=== PATIENT | male | born 1945 | race Caucasian/White ===

== ENCOUNTER 2022-02-27 09:43 | Inpatient (IN) | payer MEDICARE, MEDICAID, SELFPAY ==
--- NOTE | ~2022-02-27 | CT_ITS ---
EXAMINATION: CT HEAD WITHOUT CONTRAST CLINICAL INFORMATION: Altered mental status. COMPARISON: None TECHNIQUE: Contiguous axial imaging was performed from the skull base to vertex without intravenous administration of contrast. This CT examination was performed using dose optimization techniques as appropriate, variously including the following: *Automated exposure control *Adjustment of mA and/or kV according to patient size (this includes techniques or standardized protocols for targeted exams where dose is matched to indication/reason for exam; i.e. extremities or head) *Use of iterative reconstruction technique DLP: 727 mGy-cm FINDINGS: No intracranial hemorrhage, large infarction, or mass lesion is seen. Age-appropriate cortical atrophy and mild chronic periventricular white matter ischemic changes. No extra-axial collection is appreciated. The ventricles are normal in size and configuration without evidence of hydrocephalus. Mild mucosal thickening involving bilateral ethmoid air cells and the frontal infundibula bilaterally. The visualized paranasal sinuses and mastoid air cells otherwise appear clear. CT/CT head/brain wo IV con IMPRESSION: No acute intracranial finding.
--- NOTE | ~2022-02-27 | CT_ITS ---
EXAMINATION: CT ABDOMEN AND PELVIS WITH CONTRAST CLINICAL INFORMATION: Elevated bilirubin. COMPARISON: None TECHNIQUE: Multidetector volumetric images were obtained from the superior aspect of the liver through the pubic symphysis following administration 85 mL of Omnipaque 350 intravenous contrast. Sagittal and coronal reformatted images were obtained on the technologist's workstation. Oral contrast: No This CT examination was performed using dose optimization techniques as appropriate, variously including the following: *Automated exposure control *Adjustment of mA and/or kV according to patient size (this includes techniques or standardized protocols for targeted exams where dose is matched to indication/reason for exam; i.e. extremities or head) *Use of iterative reconstruction technique DLP: 602 mGy-cm FINDINGS: Limited by motion. LUNG BASES: The lung bases appear clear, with no evidence of inflammation or nodules. Heart upper normal in size to mildly enlarged. LIVER, GALLBLADDER, AND BILIARY TREE: The liver appears unremarkable in size, shape, and attenuation. No focal hepatic lesion or biliary ductal dilatation is appreciated. Status post cholecystectomy. PANCREAS: Unremarkable SPLEEN: Unremarkable ADRENAL GLANDS: Unremarkable KIDNEYS AND URETERS: Approximately 1 cm benign bilateral simple renal cysts. The kidneys otherwise appear unremarkable in size, shape, and attenuation. No hydronephrosis, hydroureter, or calculi seen. BLADDER: Unremarkable GASTROINTESTINAL TRACT: Small hiatus hernia. The small bowel appears unremarkable. Scattered colonic diverticula without evidence of diverticulitis. Normal-appearing distal ileum. No evidence of appendicitis. ABDOMINAL WALL: No significant hernia is appreciated. LYMPH NODES: No evidence of adenopathy by size criteria. VASCULAR: Unremarkable PELVIC VISCERA: Mildly enlarged prostate. OSSEOUS STRUCTURES: Unremarkable CT/CT abdomen pelvis w IV con IMPRESSION: Limited by motion. No acute finding.
--- NOTE | ~2022-02-27 | XR_ITS ---
EXAMINATION: XR CHEST CLINICAL INFORMATION: Altered mental status. Fever. COMPARISON: None TECHNIQUE: 2 views of the chest were obtained. FINDINGS: No significant abnormality is noted involving the heart, lungs, mediastinum, bony thorax or soft tissues. XR/XR chest 2V IMPRESSION: Unremarkable examination.
[2022-02-27 09:47] VITALS: BP 107/68; PULSE 55; RESP 18; TEMP 36.6; O2SAT 96; BMI 29.5
--- NOTE | 2022-02-27 10:46 | ECG_ITS ---
Test Reason : ams Blood Pressure : / mmHG Vent. Rate : 062 BPM Atrial Rate : 062 BPM P-R Int : 208 ms QRS Dur : 094 ms QT Int : 420 ms P-R-T Axes : 019 -19 031 degrees QTc Int : 426 ms Sinus rhythm with marked sinus arrhythmia Minimal voltage criteria for LVH, may be normal variant ( R in aVL ) Borderline ECG No previous ECGs available Referred By: Generic ED Physician Electronically Signed By:WENDY BIARRA
--- NOTE | 2022-02-27 11:08 | ED_ITS ---
HPI - General Adult General Chief complaint: General Medical Stated complaint: delirious, not feeling well Time Seen by Provider: 02/27/22 11:08 Source: patient and RN notes reviewed Mode of arrival: ambulatory (friend brought him in ) Limitations: altered mental status History of Present Illness HPI narrative: This is a 76-year-old male, unknown medical history presenting to the emergency department with altered mental status, hallucinations, bizarre behavior, confusion worsening over the past 4 days. According to nursing note some point patient reported he had a fever 4 days ago. When I asked patient why he is here he tells me he was sitting in wet clothes 3 weeks ago however unsure why he is here right now. He denies any falls. Patient unable to answer an accurate review of systems. When I ask him if anything hurts he says no. Patient seems confused, drailing and going on tangents. Related Data Allergies Allergy/AdvReac Type Severity Reaction Status Date / Time Unable to Assess Allergy Unverified 02/27/22 11:09 Review of Systems Review of Systems: Yes Unobtainable due to mental status PMFSH Past Medical History Attestation statement: The following information was validated with the patient. Source: old records reviewed and nursing notes reviewed Social History Social History Alcohol intake: former Patient Tobacco Use Status: Former Tobacco user Use of substances other than those prescribed or required for medical reasons: No Advance Directives: No Advance Directives Information Provided: Yes Physical Exam ED Vital Signs: Vital Signs - 24 hr 02/27/22 09:47 02/27/22 11:33 02/27/22 14:00 Temperature 98 F 97.7 F 98.8 F Pulse Rate 55 61 72 Respiratory Rate 18 20 20 Blood Pressure 107/68 129/74 138/66 Pulse Oximetry 96 96 98 Oxygen Delivery Method Room Air Room Air Room Air 02/27/22 15:50 02/27/22 19:45 Temperature Pulse Rate 63 63 Respiratory Rate 13 13 Blood Pressure 148/81 H 148/82 H Pulse Oximetry 95 94 Oxygen Delivery Method Room Air Room Air BMI result Body Mass Index 29.5 vss Appearance: Alert.? Oriented to person place not time or situation.? No acute distress.?Slow speech patient derailing and going on tangents during my exam. Head: Normocephalic, atraumatic, no step-offs or deformities Eyes: Pupils equal, round and reactive to light.? ENT: Pharynx normal.? Neck: Normal inspection.? Neck supple.? Negative Kernig and Brudzinski. CVS: Normal heart rate and rhythm.? Pulses normal.? Respiratory: No respiratory distress.? Breath sounds normal.? Abdomen: Soft and nontender.? Skin: Skin warm and dry.? Normal skin color.? Normal skin turgor.? Extremities: No lower extremity edema.? No calf ttp. Global weakness. Neuro: Oriented to person, place not time or situation.? No motor deficit.? No sensory deficit. Following comands. Course Reevaluation(s) Reevaluation #1: Patient noted to have slight leukocytosis, COVID negative, chest x-ray unremarkable. Head CT, urine, chemistry pending. Time: 12:01 Reevaluation #2: chemistry with no acute electrolyte abnormalities requiring intervention. Patient's total bilirubin elevated as patient is altered a CT of the abdomen and pelvis will be obtained. head CT with no acute findings. Urine clean. Time: 12:55 Reevaluation #3: Patient complaining of slight diffuse headache feels like typical. Ethanol negative, urine toxicology negative. CT of the abdomen and pelvis with no acute findings. CT of the head with no acute findings. Chest x-ray unremarkable. This time unable to identify source for patient's altered mental status lumbar puncture will be obtained. Patient gave me and nurse verbal consent went over risks vs benifits. Patient agrees. Time: 18:00 Additional Reevaluation(s): 2001 Patient did not report a post spinal tap headache. Laboratory studies concerning for aseptic meningitis will cover with ceftriaxone, vanco and acyclovir for prophylaxis. Plan at this time is to admit patient to the hospitalist team for further evaluation and treatment. 2010 Discuss this case with the hospitalist team who agrees to hospital admission. Suggested adding ampicillin to cover for listeria. At this time patient will be admitted to the hospitalist team. Medical Decision Making [facility] Narrative Medical decision making narrative: 1110 76-year-old male presents with altered mental status, confusion, reported fevers x4 days. Patient poor historian, unable to give me a good history and or review of systems. Physical examination patient alert to person, place however not time or situation. Patient slow to answer questions and is going on tangents while speaking and Dreeling from conversation. Patient has a regular rate and rhythm, lungs are clear, abdomen soft nontender nondistended. Global weakness is appreciated however there are no focal neuro deficits on exam. Patient was brought into the room by wheelchair and was brought into the emergency department by a friend. Patient appears comfortable and in no acute distress. Patient appears to be in no signs of acute distress. Vital signs within normal limits, no fever. Likely UTI or electrolyte abnormalities. No known trauma however will do a head CT to rule out intracranial hemorrhage or intracranial abnormalities. Will rule out infection, EKG abnormalities. Will also rule out ACS. As patient is altered will obtain urine via straight catheter. Some concern for encephalitis and meningitis. Medical Records Medical records reviewed: Yes I reviewed the patient's medical records. Lab Data Lab results reviewed: Yes I reviewed the patient's lab results. Result diagrams: 02/27/22 11:30 02/27/22 11:30 Labs: Lab Results 02/27/22 02/27/22 02/27/22 Range/Units 11:30 11:30 11:30 WBC 14.1 H (4.8-10.8) X10*3/uL RBC 4.72 (4.60-5.80) X10*6/uL Hgb 14.7 (14.0-18.0) g/dl Hct 40.9 L (42.0-52.0) % MCV 86.7 (80.0-98.0) fL MCH 31.1 (27.0-33.0) pg MCHC 35.9 (31.0-36.0) g/dl RDW 12.2 (11.0-16.0) % Plt Count 218 (160-400) X10*3/uL MPV 9.6 (9.4-12.4) fL Immature Gran % (Auto) 0.4 (0.0-0.4) % Neut % (Auto) 72.1 (45-73) % Lymph % (Auto) 16.2 L (20-40) % [place] % (Auto) 10.4 (2-11) % Eos % (Auto) 0.6 (0-4) % Baso % (Auto) 0.3 (0-2) % Lymph # (Auto) 2.3 (1.2-4.9) X10*3/uL [place] # (Auto) 1.5 H (0.1-1.2) X10*3/uL Eos # (Auto) 0.1 (0.0-0.4) X10*3/uL Baso # (Auto) 0.0 (0.0-0.2) X10*3/uL Abs Immat Gran (auto) 0.05 H (0.00-0.03) X10*3/uL Absolute Neuts (auto) 10.2 H (2.0-8.3) x10*3/uL Absolute Nucleated RBC 0.000 (0.0-0.012) X10*3/uL Nucleated RBC % (auto) 0.0 (0.0-0.2) /100WBC Sodium 134 L (135-145) mmol/L Potassium 3.7 (3.3-5.1) mmol/L Chloride 95 L (96-108) mmol/L Carbon Dioxide 28 (22-29) mmol/L Anion Gap 15 (12-20) BUN 15 (9-16) mg/dL Creatinine 0.88 (0.5-1.4) mg/dL Estim Creat Clear Calc 80.7 Estimated GFR > 60 Random Glucose 101 (60-115) mg/dL Lactic Acid (0.5-2.0) mmol/L Calcium 9.4 (8.4-10.2) mg/dL Total Bilirubin 3.4 H (0.0-1.0) mg/dL Direct Bilirubin 0.6 H (0.0-0.5) mg/dL AST 21 (5-37) U/L ALT 17 (0-40) U/L Alkaline Phosphatase 72 (39-117) U/L Ammonia (13-55) umol/L Total Creatine Kinase 183 H (38-174) U/L Troponin I High Sens 6.7 (<3.5-35.0) ng/L Total Protein 7.6 (6.5-8.0) g/dL Albumin 4.1 (3.5-5.0) g/dL Lipase 86 H (8-78) U/L TSH 2.19 (0.32-4.0) uIU/mL Urine Color Urine Appearance Urine pH (5.0-9.0) Ur Specific [place] (1.005-1.025) Urine Protein (Neg-Trace) mg/dL Urine Glucose (UA) (Negative) mg/dL Urine Ketones (Negative) mg/dL Urine Blood (Negative) Urine Nitrite (Negative) Ur Leukocyte Esterase (Negative) Urine RBC (0-2) /HPF Urine WBC (0-5) /HPF Ur Squamous Epith Cells (0-2) /HPF Urine Bacteria (None Seen) Hyaline Casts (0-2) /LPF CSF Tube Number CSF Volume ML CSF Appearance CSF Color CSF WBC MM*3 CSF RBC MM*3 CSF Neutrophils % CSF Lymphocytes % CSF Monocytes % % CSF Other Cells % % CSF Appearance (b) CSF Glucose mg/dL CSF Total Protein (15-45) mg/dL CSF C.neoform/gat PCR (Not Detect.) CSF CMV DNA (PCR) (Not Detect.) CSF Enterovirus (PCR) (Not Detect.) CSF E. coli K1 (PCR) (Not Detect.) CSF H. influenzae (PCR) (Not Detect.) CSF HSV I (PCR) (Not Detect.) CSF HSV II (PCR) (Not Detect.) CSF HHV 6 (PCR) (Not Detect.) CSF L.monocytogenes PCR (Not Detect.) CSF N. meningitidis PCR (Not Detect.) CSF Parechovirus (PCR) (Not Detect.) CSF S. agalactiae (PCR) (Not Detect.) CSF S. pneumoniae (PCR) (Not Detect.) CSF VZV (PCR) (Not Detect.) Urine Opiates Screen (Not Detect) Urine Fentanyl Screen (Not Detect) Ur Barbiturates Screen (Not Detect) Ur Phencyclidine Scrn (Not Detect) Ur Amphetamines Screen (Not Detect) U Benzodiazepines Scrn (Not Detect) Urine Cocaine Screen (Not Detect) U Marijuana (THC) Screen (Not Detect) Ethyl Alcohol < 10 mg/dL COVID-19 ([facility]) (Negative) COVID-19 Clin Com 02/27/22 02/27/22 02/27/22 Range/Units 11:30 11:30 11:31 WBC (4.8-10.8) X10*3/uL RBC (4.60-5.80) X10*6/uL Hgb (14.0-18.0) g/dl Hct (42.0-52.0) % MCV (80.0-98.0) fL MCH (27.0-33.0) pg MCHC (31.0-36.0) g/dl RDW (11.0-16.0) % Plt Count (160-400) X10*3/uL MPV (9.4-12.4) fL Immature Gran % (Auto) (0.0-0.4) % Neut % (Auto) (45-73) % Lymph % (Auto) (20-40) % [place] % (Auto) (2-11) % Eos % (Auto) (0-4) % Baso % (Auto) (0-2) % Lymph # (Auto) (1.2-4.9) X10*3/uL [place] # (Auto) (0.1-1.2) X10*3/uL Eos # (Auto) (0.0-0.4) X10*3/uL Baso # (Auto) (0.0-0.2) X10*3/uL Abs Immat Gran (auto) (0.00-0.03) X10*3/uL Absolute Neuts (auto) (2.0-8.3) x10*3/uL Absolute Nucleated RBC (0.0-0.012) X10*3/uL Nucleated RBC % (auto) (0.0-0.2) /100WBC Sodium (135-145) mmol/L Potassium (3.3-5.1) mmol/L Chloride (96-108) mmol/L Carbon Dioxide (22-29) mmol/L Anion Gap (12-20) BUN (9-16) mg/dL Creatinine (0.5-1.4) mg/dL Estim Creat Clear Calc Estimated GFR Random Glucose (60-115) mg/dL Lactic Acid 0.9 (0.5-2.0) mmol/L Calcium (8.4-10.2) mg/dL Total Bilirubin (0.0-1.0) mg/dL Direct Bilirubin (0.0-0.5) mg/dL AST (5-37) U/L ALT (0-40) U/L Alkaline Phosphatase (39-117) U/L Ammonia (13-55) umol/L Total Creatine Kinase (38-174) U/L Troponin I High Sens (<3.5-35.0) ng/L Total Protein (6.5-8.0) g/dL Albumin (3.5-5.0) g/dL Lipase (8-78) U/L TSH (0.32-4.0) uIU/mL Urine Color Urine Appearance Urine pH (5.0-9.0) Ur Specific [place] (1.005-1.025) Urine Protein (Neg-Trace) mg/dL Urine Glucose (UA) (Negative) mg/dL Urine Ketones (Negative) mg/dL Urine Blood (Negative) Urine Nitrite (Negative) Ur Leukocyte Esterase (Negative) Urine RBC (0-2) /HPF Urine WBC (0-5) /HPF Ur Squamous Epith Cells (0-2) /HPF Urine Bacteria (None Seen) Hyaline Casts (0-2) /LPF CSF Tube Number CSF Volume ML CSF Appearance CSF Color CSF WBC MM*3 CSF RBC MM*3 CSF Neutrophils % CSF Lymphocytes % CSF Monocytes % % CSF Other Cells % % CSF Appearance (b) CSF Glucose mg/dL CSF Total Protein (15-45) mg/dL CSF C.neoform/gat PCR (Not Detect.) CSF CMV DNA (PCR) (Not Detect.) CSF Enterovirus (PCR) (Not Detect.) CSF E. coli K1 (PCR) (Not Detect.) CSF H. influenzae (PCR) (Not Detect.) CSF HSV I (PCR) (Not Detect.) CSF HSV II (PCR) (Not Detect.) CSF HHV 6 (PCR) (Not Detect.) CSF L.monocytogenes PCR (Not Detect.) CSF N. meningitidis PCR (Not Detect.) CSF Parechovirus (PCR) (Not Detect.) CSF S. agalactiae (PCR) (Not Detect.) CSF S. pneumoniae (PCR) (Not Detect.) CSF VZV (PCR) (Not Detect.) Urine Opiates Screen Not Detected (Not Detect) Urine Fentanyl Screen Not Detected (Not Detect) Ur Barbiturates Screen Not Detected (Not Detect) Ur Phencyclidine Scrn Not Detected (Not Detect) Ur Amphetamines Screen Not Detected (Not Detect) U Benzodiazepines Scrn Not Detected (Not Detect) Urine Cocaine Screen Not Detected (Not Detect) U Marijuana (THC) Screen Not Detected (Not Detect) Ethyl Alcohol mg/dL COVID-19 ([facility]) Negative (Negative) COVID-19 Clin Com See Note 02/27/22 02/27/22 02/27/22 Range/Units 12:09 16:32 18:57 WBC (4.8-10.8) X10*3/uL RBC (4.60-5.80) X10*6/uL Hgb (14.0-18.0) g/dl Hct (42.0-52.0) % MCV (80.0-98.0) fL MCH (27.0-33.0) pg MCHC (31.0-36.0) g/dl RDW (11.0-16.0) % Plt Count (160-400) X10*3/uL MPV (9.4-12.4) fL Immature Gran % (Auto) (0.0-0.4) % Neut % (Auto) (45-73) % Lymph % (Auto) (20-40) % [place] % (Auto) (2-11) % Eos % (Auto) (0-4) % Baso % (Auto) (0-2) % Lymph # (Auto) (1.2-4.9) X10*3/uL [place] # (Auto) (0.1-1.2) X10*3/uL Eos # (Auto) (0.0-0.4) X10*3/uL Baso # (Auto) (0.0-0.2) X10*3/uL Abs Immat Gran (auto) (0.00-0.03) X10*3/uL Absolute Neuts (auto) (2.0-8.3) x10*3/uL Absolute Nucleated RBC (0.0-0.012) X10*3/uL Nucleated RBC % (auto) (0.0-0.2) /100WBC Sodium (135-145) mmol/L Potassium (3.3-5.1) mmol/L Chloride (96-108) mmol/L Carbon Dioxide (22-29) mmol/L Anion Gap (12-20) BUN (9-16) mg/dL Creatinine (0.5-1.4) mg/dL Estim Creat Clear Calc Estimated GFR Random Glucose (60-115) mg/dL Lactic Acid (0.5-2.0) mmol/L Calcium (8.4-10.2) mg/dL Total Bilirubin (0.0-1.0) mg/dL Direct Bilirubin (0.0-0.5) mg/dL AST (5-37) U/L ALT (0-40) U/L Alkaline Phosphatase (39-117) U/L Ammonia 25 (13-55) umol/L Total Creatine Kinase (38-174) U/L Troponin I High Sens (<3.5-35.0) ng/L Total Protein (6.5-8.0) g/dL Albumin (3.5-5.0) g/dL Lipase (8-78) U/L TSH (0.32-4.0) uIU/mL Urine Color Dark Yellow Urine Appearance Clear Urine pH 6.0 (5.0-9.0) Ur Specific [place] 1.025 (1.005-1.025) Urine Protein 30 (1+) H (Neg-Trace) mg/dL Urine Glucose (UA) Negative (Negative) mg/dL Urine Ketones Negative (Negative) mg/dL Urine Blood Trace H (Negative) Urine Nitrite Negative (Negative) Ur Leukocyte Esterase Negative (Negative) Urine RBC 3-5 H (0-2) /HPF Urine WBC 0-5 (0-5) /HPF Ur Squamous Epith Cells 3-5 (0-2) /HPF Urine Bacteria None Seen (None Seen) Hyaline Casts 0-2 (0-2) /LPF CSF Tube Number 3 CSF Volume ML CSF Appearance CSF Color CSF WBC MM*3 CSF RBC MM*3 CSF Neutrophils % CSF Lymphocytes % CSF Monocytes % % CSF Other Cells % % CSF Appearance (b) Clear, Colorless CSF Glucose 59 mg/dL CSF Total Protein 96.4 H (15-45) mg/dL CSF C.neoform/gat PCR (Not Detect.) CSF CMV DNA (PCR) (Not Detect.) CSF Enterovirus (PCR) (Not Detect.) CSF E. coli K1 (PCR) (Not Detect.) CSF H. influenzae (PCR) (Not Detect.) CSF HSV I (PCR) (Not Detect.) CSF HSV II (PCR) (Not Detect.) CSF HHV 6 (PCR) (Not Detect.) CSF L.monocytogenes PCR (Not Detect.) CSF N. meningitidis PCR (Not Detect.) CSF Parechovirus (PCR) (Not Detect.) CSF S. agalactiae (PCR) (Not Detect.) CSF S. pneumoniae (PCR) (Not Detect.) CSF VZV (PCR) (Not Detect.) Urine Opiates Screen (Not Detect) Urine Fentanyl Screen (Not Detect) Ur Barbiturates Screen (Not Detect) Ur Phencyclidine Scrn (Not Detect) Ur Amphetamines Screen (Not Detect) U Benzodiazepines Scrn (Not Detect) Urine Cocaine Screen (Not Detect) U Marijuana (THC) Screen (Not Detect) Ethyl Alcohol mg/dL COVID-19 ([facility]) (Negative) COVID-19 Clin Com 02/27/22 02/27/22 Range/Units 18:57 18:57 WBC (4.8-10.8) X10*3/uL RBC (4.60-5.80) X10*6/uL Hgb (14.0-18.0) g/dl Hct (42.0-52.0) % MCV (80.0-98.0) fL MCH (27.0-33.0) pg MCHC (31.0-36.0) g/dl RDW (11.0-16.0) % Plt Count (160-400) X10*3/uL MPV (9.4-12.4) fL Immature Gran % (Auto) (0.0-0.4) % Neut % (Auto) (45-73) % Lymph % (Auto) (20-40) % [place] % (Auto) (2-11) % Eos % (Auto) (0-4) % Baso % (Auto) (0-2) % Lymph # (Auto) (1.2-4.9) X10*3/uL [place] # (Auto) (0.1-1.2) X10*3/uL Eos # (Auto) (0.0-0.4) X10*3/uL Baso # (Auto) (0.0-0.2) X10*3/uL Abs Immat Gran (auto) (0.00-0.03) X10*3/uL Absolute Neuts (auto) (2.0-8.3) x10*3/uL Absolute Nucleated RBC (0.0-0.012) X10*3/uL Nucleated RBC % (auto) (0.0-0.2) /100WBC Sodium (135-145) mmol/L Potassium (3.3-5.1) mmol/L Chloride (96-108) mmol/L Carbon Dioxide (22-29) mmol/L Anion Gap (12-20) BUN (9-16) mg/dL Creatinine (0.5-1.4) mg/dL Estim Creat Clear Calc Estimated GFR Random Glucose (60-115) mg/dL Lactic Acid (0.5-2.0) mmol/L Calcium (8.4-10.2) mg/dL Total Bilirubin (0.0-1.0) mg/dL Direct Bilirubin (0.0-0.5) mg/dL AST (5-37) U/L ALT (0-40) U/L Alkaline Phosphatase (39-117) U/L Ammonia (13-55) umol/L Total Creatine Kinase (38-174) U/L Troponin I High Sens (<3.5-35.0) ng/L Total Protein (6.5-8.0) g/dL Albumin (3.5-5.0) g/dL Lipase (8-78) U/L TSH (0.32-4.0) uIU/mL Urine Color Urine Appearance Urine pH (5.0-9.0) Ur Specific [place] (1.005-1.025) Urine Protein (Neg-Trace) mg/dL Urine Glucose (UA) (Negative) mg/dL Urine Ketones (Negative) mg/dL Urine Blood (Negative) Urine Nitrite (Negative) Ur Leukocyte Esterase (Negative) Urine RBC (0-2) /HPF Urine WBC (0-5) /HPF Ur Squamous Epith Cells (0-2) /HPF Urine Bacteria (None Seen) Hyaline Casts (0-2) /LPF CSF Tube Number 4 CSF Volume 1.0 ML CSF Appearance CLEAR CSF Color COLORLESS CSF WBC 73 H* MM*3 CSF RBC 0 MM*3 CSF Neutrophils 22 % CSF Lymphocytes 64 % CSF Monocytes % 13 % CSF Other Cells % 1 % CSF Appearance (b) CSF Glucose mg/dL CSF Total Protein (15-45) mg/dL CSF C.neoform/gat PCR Not Detected (Not Detect.) CSF CMV DNA (PCR) Not Detected (Not Detect.) CSF Enterovirus (PCR) Not Detected (Not Detect.) CSF E. coli K1 (PCR) Not Detected (Not Detect.) CSF H. influenzae (PCR) Not Detected (Not Detect.) CSF HSV I (PCR) Not Detected (Not Detect.) CSF HSV II (PCR) Not Detected (Not Detect.) CSF HHV 6 (PCR) Not Detected (Not Detect.) CSF L.monocytogenes PCR Not Detected (Not Detect.) CSF N. meningitidis PCR Not Detected (Not Detect.) CSF Parechovirus (PCR) Not Detected (Not Detect.) CSF S. agalactiae (PCR) Not Detected (Not Detect.) CSF S. pneumoniae (PCR) Not Detected (Not Detect.) CSF VZV (PCR) Not Detected (Not Detect.) Urine Opiates Screen (Not Detect) Urine Fentanyl Screen (Not Detect) Ur Barbiturates Screen (Not Detect) Ur Phencyclidine Scrn (Not Detect) Ur Amphetamines Screen (Not Detect) U Benzodiazepines Scrn (Not Detect) Urine Cocaine Screen (Not Detect) U Marijuana (THC) Screen (Not Detect) Ethyl Alcohol mg/dL COVID-19 ([facility]) (Negative) COVID-19 Clin Com Critical Care Time Critical Care Time Critical Care Time: Yes Total Critical Care Time: 60 Attestation: I attest to this time spent taking care of the patient, obtaining history, physical, reviewing labs, imaging, speaking to my attending, speaking to specialist. Discharge Plan Discharge Clinical Impression: Aseptic meningitis, Altered mental status Patient Disposition: Admitted As Inpatient
[2022-02-27 11:33] VITALS: BP 129/74; PULSE 61; RESP 20; TEMP 36.5; O2SAT 96
[2022-02-27 11:38] LABS: Basophils Percent Auto 0.3 % (0-2); Eosinophils Absolute Auto 0.1 X10*3/uL (0.0-0.4); Eosinophils Percent Auto 0.6 % (0-4); Hematocrit 40.9 % (42.0-52.0); Hemoglobin 14.7 g/dl (14.0-18.0); Imm Gran Abs Auto 0.05 X10*3/uL (0.00-0.03); Imm Gran Pct Auto 0.4 % (0.0-0.4); Lymphocytes Absolute Auto 2.3 X10*3/uL (1.2-4.9); Lymphocytes Percent Auto 16.2 % (20-40); MANUAL DIFF FLAG NO; Mean Corpuscular HGB Conc 35.9 g/dl (31.0-36.0); Mean Corpuscular Hemoglobin 31.1 pg (27.0-33.0); Mean Corpuscular Volume 86.7 fL (80.0-98.0); Mean Platelet Volume 9.6 fL (9.4-12.4); Monocytes Absolute Auto 1.5 X10*3/uL (0.1-1.2); Monocytes Percent Auto 10.4 % (2-11); Neutrophils Absolute Auto 10.2 x10*3/uL (2.0-8.3); Neutrophils Percent Auto 72.1 % (45-73); Platelet Count 218 X10*3/uL (160-400); Red Blood Count 4.72 X10*6/uL (4.60-5.80); Red Cell Distribution Width 12.2 % (11.0-16.0); White Blood Count 14.1 X10*3/uL (4.8-10.8)
--- NOTE | 2022-02-27 11:47 | PC.NURSE ---
Patient came in complaining about fever. Patient is a/o x 4, IV 20 G was inserted and labs was collected by provider order, pt was paced on the telemetry and it shows sinus bradychardia with one PVC. Pt VS are stable. Pt was observed and he self-care deficit. Pt clothing looks soil.
[2022-02-27 11:48] LABS: Lactic Acid 0.9 mmol/L (0.5-2.0)
[2022-02-27 11:55] LABS: COVID-19 Test Negative (Negative)
[2022-02-27 12:01] LABS: Troponin-I High Sensitivity 6.7 ng/L (<3.5-35.0)
[2022-02-27 12:03] LABS: Alanine Aminotransferase 17 U/L (0-40); Albumin Level 4.1 g/dL (3.5-5.0); Alkaline Phosphatase 72 U/L (39-117); Anion Gap 15 (12-20); Aspartate Amino Transferase 21 U/L (5-37); Bilirubin Direct 0.6 mg/dL (0.0-0.5); Bilirubin Total 3.4 mg/dL (0.0-1.0); Blood Urea Nitrogen 15 mg/dL (9-16); Calcium 9.4 mg/dL (8.4-10.2); Carbon Dioxide 28 mmol/L (22-29); Chloride 95 mmol/L (96-108); Creatinine Clr Calc Pharmacy 80.7; Estimated Glomerular Filt Rate > 60; Glucose Random 101 mg/dL (60-115); Lipase 86 U/L (8-78); Potassium 3.7 mmol/L (3.3-5.1); Sodium 134 mmol/L (135-145); Total Protein 7.6 g/dL (6.5-8.0)
--- NOTE | 2022-02-27 12:06 | PC.NURSE ---
Pt was straight cath, and urine culture was collected.
[2022-02-27 12:30] LABS: Appearance Urine Clear; Color Urine Dark Yellow; Glucose Urine UA Negative (Negative); Leukocyte Esterase Urine Negative (Negative); Nitrite Urine Negative (Negative); Specific Gravity - Urine 1.025 (1.005-1.025); Urine Blood Trace (Negative); Urine Ketones Negative (Negative); Urine Protein 30 (1+) mg/dL (Neg-Trace)
[2022-02-27 12:42] LABS: Bacteria Urine None Seen (None Seen); Hyaline Casts Urine 0-2 /LPF (0-2); WBC Urine 0-5 /HPF (0-5)
[2022-02-27] MEDS: iohexoL 350 MG/ML 100 ML INFUS..BTL 85 ML IV (12:50)
[2022-02-27 14:00] VITALS: BP 138/66; PULSE 72; RESP 20; TEMP 37.1; O2SAT 98
[2022-02-27 15:50] VITALS: BP 148/81; PULSE 63; RESP 13; O2SAT 95
--- NOTE | 2022-02-27 16:00 | PC.NURSE ---
Pt VS are stable, Pt is a/o x3, pt was assistance with the urinal.
[2022-02-27 16:46] LABS: Ammonia 25 umol/L (13-55)
[2022-02-27 16:56] LABS: TSH reflex Free T4 2.19 uIU/mL (0.32-4.0)
--- NOTE | 2022-02-27 17:00 | PC.NURSE ---
Pt had a lumbar puncture procedure, provider was assisted with the equipment and pt with position and verbal reassurance. Pt tolerated the procedure wel, pt is resting supine position as provided requested.
[2022-02-27 17:20] LABS: Ethanol < 10 mg/dL
[2022-02-27 17:26] LABS: Amphetamine Screen Urine Not Detected (Not Detect); Barbiturates, Urine Not Detected (Not Detect); Benzodiazepines Screen Urine Not Detected (Not Detect); Cannabinoid Screen Urine Not Detected (Not Detect); Cocaine Screen Urine Not Detected (Not Detect); Fentanyl, urine Not Detected (Not Detect); Opiate Screen Urine Not Detected (Not Detect); Phencyclidine Screen Urine Not Detected (Not Detect)
[2022-02-27 19:34] LABS: Glucose CSF 59 mg/dL; Total Protein CSF 96.4 mg/dL (15-45)
[2022-02-27 19:38] LABS: CSF Appearance Clear, Colorless; CSF Tube # 3
[2022-02-27 19:41] LABS: Appearance CSF CLEAR; CSF Tube # 4; Color CSF COLORLESS
[2022-02-27 19:45] VITALS: BP 148/82; PULSE 63; RESP 13; O2SAT 94
[2022-02-27 19:56] LABS: CSF Monos 13 %; CSF Other Cells % 1 %; Lymphocytes CSF 64 %; Neutrophils CSF 22 %; Red Blood Cell CSF 0 MM*3; White Blood Cell CSF 73 MM*3
[2022-02-27] MEDS: cefTRIAXone sodium 2 GM in 0.9 % Sodium Chloride 50 ML IV (20:24)
--- NOTE | 2022-02-27 20:30 | PC.NURSE ---
Pt VS are stable, and pt abx were administer as order.
[2022-02-27] MEDS: 0.9 % Sodium Chloride 500 ML 10 ML IVCONT (21:22)
[2022-02-27] MEDS: SODIUM CHLORIDE 0.9% IV (21:22)
[2022-02-27] MEDS: ACYCLOVIR SODIUM IV (21:22)
--- NOTE | 2022-02-27 21:25 | PM.IMHP ---
History of Present Illness Date of Service: 02/27/22 Attending physician on admission: Musa Rivera Chief Complaint: AMS, aseptic meningitis 76 year old male without known medical history brought to the ED today by a friend who did not come into the department for what patient reports as 3 weeks of fatigue, subjective fevers, shaking chills that has worsened over the last few days now with 1-2 episodes of watery diarrhea daily, polyarthalgia, and decreased oral intake. Reports symptoms started after he worked outside in the rain and slept in wet clothes. He states he came from home where he lives with two dogs and then later states that his home is actually a van. Upon questioning he states he has had headaches and sore throat over the last 3 weeks but did not volunteer this information. Has been somewhat confused since arrival with vague history. In ED, leukocytosis of 14.1. Renal function normal. Elevated bilirubin 3.4, direct bili 0.6 AST/ALT and alk phos normal. CSF with WBC 73, total protein 96.4. Fluid is clear and colorless without significant glucose or RBC. Remainder of meningitis panel is pending. Has received IV acyclovir, ceftriaxone, ampicillin, and vancomycin. CXR, Ct head, and CT abd/pelvis negative for acute abnormality. Review of Systems Review of Systems: General: No fevers, malaise, unintentional weight loss HEENT: No blurred vision, diplopia. +sore throat Cardiovascular: No chest pain, palpitations, or leg edema Respiratory: No shortness of breath, wheezing, cough GI: +diarrhea. No abdominal pain, nausea, vomiting, constipation, melena, hematochezia : No dysuria, hematuria, increased urinary frequency MSK: +polyarthralgia Neuro: +headaches. No weakness, paresthesias Skin: No rashes or lesions PMFSH Social History Alcohol intake: former Patient Tobacco Use Status: Former Tobacco user Use of substances other than those prescribed or required for medical reasons: No Advance Directives: No Advance Directives Information Provided: Yes Meds Allergies Allergy/AdvReac Type Severity Reaction Status Date / Time Unable to Assess Allergy Unverified 02/27/22 11:09 Active Medications: Current Medications Vancomycin HCl (Vancomycin/Ns) 2,000 mg in 520 mls @ 260 mls/hr IV ONCE ONE Stop: 02/27/22 21:56 Sodium Chloride (Ns) 500 mls @ 10 mls/hr IVCONT .Q24H [facility] Home Medications Medication Instructions Recorded Confirmed Last Taken Type No Known Home Meds 02/27/22 02/27/22 Unknown History Physical Exam Vital Signs and Narrative: Vital Signs: Last Vital Signs Temp 98.8 F 02/27/22 14:00 Pulse 63 02/27/22 19:45 Resp 13 02/27/22 19:45 BP 148/82 H 02/27/22 19:45 Pulse Ox 94 02/27/22 19:45 O2 Del Method 02/27/22 19:45 BMI result Body Mass Index 29.5 Constitutional - Awake and Alert, No apparent distress Eyes - PERRLA, EOMI Cardiovascular - S1S2, RRR, No edema Respiratory - Normal lung expansion, Normal respiratory effort, No respiratory distress, CTA bilaterally Gastrointestinal - Diffuse ttp. ND; +BS; No rebound or guarding Extremities - no calf tenderness bilaterally, no swelling Skin - Warm/Dry Neurological - Alert & oriented x3 but somewhat confused. Easily derailed and slightly tangential during interview. CN II-XII in tact. Neg Kernig and Brudzinski tests Psychological- appropriate affect, no AH/VH Results Labs CBC and Chem 7: 02/27/22 11:30 02/27/22 11:30 Labs: Laboratory Results - last 24 hr 02/27/22 02/27/22 02/27/22 11:30 11:30 11:30 MCV 86.7 MCH 31.1 MCHC 35.9 RDW 12.2 Plt Count 218 MPV 9.6 Immature Gran % (Auto) 0.4 Neut % (Auto) 72.1 Lymph % (Auto) 16.2 L [place] % (Auto) 10.4 Eos % (Auto) 0.6 Baso % (Auto) 0.3 Lymph # (Auto) 2.3 [place] # (Auto) 1.5 H Eos # (Auto) 0.1 Baso # (Auto) 0.0 Abs Immat Gran (auto) 0.05 H Absolute Neuts (auto) 10.2 H Absolute Nucleated RBC 0.000 Nucleated RBC % (auto) 0.0 Anion Gap 15 Estim Creat Clear Calc 80.7 Estimated GFR > 60 Random Glucose 101 Lactic Acid 0.9 Calcium 9.4 Total Bilirubin 3.4 H Direct Bilirubin 0.6 H AST 21 ALT 17 Alkaline Phosphatase 72 Ammonia Total Creatine Kinase 183 H Total Protein 7.6 Albumin 4.1 Lipase 86 H TSH 2.19 Urine Color Urine Appearance Urine pH Ur Specific [place] Urine Protein Urine Glucose (UA) Urine Ketones Urine Blood Urine Nitrite Ur Leukocyte Esterase Urine RBC Urine WBC Ur Squamous Epith Cells Urine Bacteria Hyaline Casts CSF Tube Number CSF Volume CSF Appearance CSF Color CSF WBC CSF RBC CSF Neutrophils CSF Lymphocytes CSF Monocytes % CSF Other Cells % CSF Appearance (b) CSF Glucose CSF Total Protein Urine Opiates Screen Urine Fentanyl Screen Ur Barbiturates Screen Ur Phencyclidine Scrn Ur Amphetamines Screen U Benzodiazepines Scrn Urine Cocaine Screen U Marijuana (THC) Screen Ethyl Alcohol < 10 COVID-19 ([facility]) COVID-19 [employer] 02/27/22 02/27/22 02/27/22 11:30 11:31 12:09 MCV MCH MCHC RDW Plt Count MPV Immature Gran % (Auto) Neut % (Auto) Lymph % (Auto) [place] % (Auto) Eos % (Auto) Baso % (Auto) Lymph # (Auto) [place] # (Auto) Eos # (Auto) Baso # (Auto) Abs Immat Gran (auto) Absolute Neuts (auto) Absolute Nucleated RBC Nucleated RBC % (auto) Anion Gap Estim Creat Clear Calc Estimated GFR Random Glucose Lactic Acid Calcium Total Bilirubin Direct Bilirubin AST ALT Alkaline Phosphatase Ammonia Total Creatine Kinase Total Protein Albumin Lipase TSH Urine Color Dark Yellow Urine Appearance Clear Urine pH 6.0 Ur Specific [place] 1.025 Urine Protein 30 (1+) H Urine Glucose (UA) Negative Urine Ketones Negative Urine Blood Trace H Urine Nitrite Negative Ur Leukocyte Esterase Negative Urine RBC 3-5 H Urine WBC 0-5 Ur Squamous Epith Cells 3-5 Urine Bacteria None Seen Hyaline Casts 0-2 CSF Tube Number CSF Volume CSF Appearance CSF Color CSF WBC CSF RBC CSF Neutrophils CSF Lymphocytes CSF Monocytes % CSF Other Cells % CSF Appearance (b) CSF Glucose CSF Total Protein Urine Opiates Screen Not Detected Urine Fentanyl Screen Not Detected Ur Barbiturates Screen Not Detected Ur Phencyclidine Scrn Not Detected Ur Amphetamines Screen Not Detected U Benzodiazepines Scrn Not Detected Urine Cocaine Screen Not Detected U Marijuana (THC) Screen Not Detected Ethyl Alcohol COVID-19 ([facility]) Negative COVID-19 [employer] See Note 02/27/22 02/27/22 02/27/22 16:32 18:57 18:57 MCV MCH MCHC RDW Plt Count MPV Immature Gran % (Auto) Neut % (Auto) Lymph % (Auto) [place] % (Auto) Eos % (Auto) Baso % (Auto) Lymph # (Auto) [place] # (Auto) Eos # (Auto) Baso # (Auto) Abs Immat Gran (auto) Absolute Neuts (auto) Absolute Nucleated RBC Nucleated RBC % (auto) Anion Gap Estim Creat Clear Calc Estimated GFR Random Glucose Lactic Acid Calcium Total Bilirubin Direct Bilirubin AST ALT Alkaline Phosphatase Ammonia 25 Total Creatine Kinase Total Protein Albumin Lipase TSH Urine Color Urine Appearance Urine pH Ur Specific [place] Urine Protein Urine Glucose (UA) Urine Ketones Urine Blood Urine Nitrite Ur Leukocyte Esterase Urine RBC Urine WBC Ur Squamous Epith Cells Urine Bacteria Hyaline Casts CSF Tube Number 3 4 CSF Volume 1.0 CSF Appearance CLEAR CSF Color COLORLESS CSF WBC 73 H* CSF RBC 0 CSF Neutrophils 22 CSF Lymphocytes 64 CSF Monocytes % 13 CSF Other Cells % 1 CSF Appearance (b) Clear, Colorless CSF Glucose 59 CSF Total Protein 96.4 H Urine Opiates Screen Urine Fentanyl Screen Ur Barbiturates Screen Ur Phencyclidine Scrn Ur Amphetamines Screen U Benzodiazepines Scrn Urine Cocaine Screen U Marijuana (THC) Screen Ethyl Alcohol COVID-19 ([facility]) COVID-19 Clin Com Imaging Radiologist's Impressions: Impressions Chest X-Ray 02/27/22 11:05 IMPRESSION: Unremarkable examination. Head CT 02/27/22 11:58 IMPRESSION: No acute intracranial finding. Abdomen/Pelvis CT 02/27/22 12:59 IMPRESSION: Limited by motion. No acute finding. Assessment and Plan (1) Aseptic meningitis: Status: Acute (2) Altered mental status: Status: Acute Plan Patient without known medical history admitted for aseptic meningitis and AMS. Patient history unclear as he is unknown to the hospital and is a poor historian secondary to AMS. 1- Aseptic meningitis -Leukocytosis 14.1. Hemodynamically stable. No sepsis -LP with 73 WBC, Total protein 96.4 -CSF Lyme, C.neoform, CMV, Enterovirus, E. coli, H. Flu, HSV I/II, HHV, Leisteria, N. meningitidis, parechovirus, strep agalactiae, strep penumo, and varicella zoster pending -Received acyclovir, ampillin, ceftriaxone, and vanco in ED. Continue until CSF and blood cultures resulted -Tylenol prn headaches -Follow CBC daily 2-AMS -likely secondary to infection 3- Hyperbilirubinemia -AST/ALT and alk phos normal. -Repeat CMP am. If elevated, consider RUQ u/s 4-Acute diarrhea- reporting 1-2 episodes watery diarrhea daily x several days with leukocytosis -Diarrhea panel ordered to r/o infectious etiology DVT prophylaxis- Lovenox Full code- unable to ask pt due to confusion Pt requires inpatient stay of at least 2 midnights due to aseptic meningitis with AMS of unclear etiology at this time requires broad spectrum IV antibiotics and antivirals. Quality Stroke Does the patient have a stroke diagnosis?: No VTE Prior VTE?: No VTE Risk Level:: Medical - moderate - high VTE Device Contraindication: Treatment Not Indicated VTE Drug Contraindication: N/A - Med Ordered
[2022-02-27] MEDS: Ampicillin Sodium 1 GM in 0.9 % Sodium Chloride 100 ML IV (21:48)
[2022-02-27 21:49] LABS: Cryptococcus neoformans/gattii Not Detected (Not Detect.); Enterovirus Not Detected (Not Detect.); Escherichia coli K1 Not Detected (Not Detect.); Haemophilus influenzae Not Detected (Not Detect.)
[2022-02-27 21:50] LABS: Herpes simplex virus 1 Not Detected (Not Detect.); Herpes simplex virus 2 Not Detected (Not Detect.); Human herpesvirus 6 Not Detected (Not Detect.); Human parechovirus Not Detected (Not Detect.); Listeria monocytogenes Not Detected (Not Detect.); Neisseria meningitidis Not Detected (Not Detect.); Streptococcus agalactiae Not Detected (Not Detect.); Streptococcus pneumoniae Not Detected (Not Detect.); Varicella zoster virus Not Detected (Not Detect.)
[2022-02-27 22:24] VITALS: BP 129/69; PULSE 66; RESP 16; TEMP 36.3; O2SAT 96
[2022-02-27] MEDS: Lactated Ringers 1,000 ML 100 ML IVCONT (22:34)
[2022-02-27] MEDS: Enoxaparin Sodium 40 MG/0.4 ML SYRINGE SUBCUT (22:35)
--- NOTE | 2022-02-27 22:38 | PC.NURSE ---
Pt VS are stable, Pt meds were administered as ordered. Pt was provided an urinal and he was assisted. will be continue to monitor.
[2022-02-28] MEDS: Ampicillin Sodium 2 GM in 0.9 % Sodium Chloride 100 ML IV ×3 (02:00→09:43)
[2022-02-28 04:09] VITALS: BP 113/75; PULSE 54; RESP 19; O2SAT 95
[2022-02-28] MEDS: ACYCLOVIR SODIUM IV ×3 (05:33→22:04)
[2022-02-28] MEDS: SODIUM CHLORIDE 0.9% IV ×3 (05:33→22:04)
[2022-02-28 06:12] LABS: MANUAL DIFF FLAG NO
[2022-02-28 06:26] LABS: Basophils Percent Auto 0.4 % (0-2); Eosinophils Absolute Auto 0.2 X10*3/uL (0.0-0.4); Eosinophils Percent Auto 2.2 % (0-4); Hematocrit 37.9 % (42.0-52.0); Hemoglobin 13.2 g/dl (14.0-18.0); Imm Gran Abs Auto 0.03 X10*3/uL (0.00-0.03); Imm Gran Pct Auto 0.3 % (0.0-0.4); Lymphocytes Absolute Auto 1.5 X10*3/uL (1.2-4.9); Lymphocytes Percent Auto 14.8 % (20-40); Mean Corpuscular HGB Conc 34.8 g/dl (31.0-36.0); Mean Corpuscular Hemoglobin 30.5 pg (27.0-33.0); Mean Corpuscular Volume 87.5 fL (80.0-98.0); Mean Platelet Volume 10.2 fL (9.4-12.4); Monocytes Percent Auto 10.2 % (2-11); Neutrophils Absolute Auto 7.3 x10*3/uL (2.0-8.3); Neutrophils Percent Auto 72.1 % (45-73); Platelet Count 210 X10*3/uL (160-400); Red Blood Count 4.33 X10*6/uL (4.60-5.80); White Blood Count 10.2 X10*3/uL (4.8-10.8)
--- NOTE | 2022-02-28 07:18 | PHA.MEDREC ---
Pharmacy Consult ? Medication Reconciliation Pharmacy has completed the medication reconciliation. Check nursing med rec from previous night
[2022-02-28 08:00] VITALS: BP 152/89; PULSE 72; RESP 18; TEMP 36.6; O2SAT 98
[2022-02-28] MEDS: 0.9 % Sodium Chloride Flush 3 ML SYRINGE IVFLUSH (08:46)
[2022-02-28] MEDS: cefTRIAXone sodium 2 GM in 0.9 % Sodium Chloride 50 ML IV ×2 (08:46→20:21)
[2022-02-28] MEDS: vancomycin HCL 1,000 MG in 0.9 % Sodium Chloride 250 ML 270 MG IV (11:15)
[2022-02-28 11:21] VITALS: BP 150/80; PULSE 69; RESP 18; TEMP 36.1; O2SAT 93
--- NOTE | 2022-02-28 11:39 | HO.PM.IMPN ---
Subjective Subjective Date of Service: 02/28/22 Interval History: the patient was seen and evaluated this morning Laying in bed, feels mild improvement since yesterday Reported diarrhea resolved but still feeling generalized weakness Denies any fever, chills or shortness of breath No reported other overnight events. Systemic review: No fever, chills b but has general weakness No chest pain, palpitation No shortness of breath or coughing No abdominal pain, nausea or vomiting No urinary symptoms No any rash or wounds Still feeling mildly confused but better than before Physical Exam Vital Signs: Vital Signs: Last Vital Signs Temp 97 F 02/28/22 11:21 Pulse 69 02/28/22 11:21 Resp 18 02/28/22 11:21 BP 150/80 H 02/28/22 11:21 Pulse Ox 93 02/28/22 11:21 O2 Del Method 02/28/22 11:21 BMI result Body Mass Index 29.5 Const: Other: Constitutional : Alert, oriented, not in distress Neck : Normal inspection, Supple Cardiovascular : RRR, no JVP, no lower extremity edema Respiratory : fair bilateral air entry, no crackles, wheezes or rhonchi Gastrointestinal: soft, lax, Normal bowel sounds, Non tender Skin : Warm, Dry, no rash Neurological : Alert & oriented x3, No focal deficit Objective Data Active Medications Acetaminophen (Acetaminophen Supp 650 Mg Supp.Rect) 650 mg [place] Q6H PRN PRN Reason: Pain, Mild (Pain Scale 1-3) Enoxaparin Sodium (Enoxaparin Sodium 40 Mg/0.4 Ml Syringe) 40 mg SUBCUT Q24H [facility] Last Admin: 02/27/22 22:35 Dose: 40 mg Documented By: CANDIE Sodium Chloride (Ns) 500 mls @ 10 mls/hr IVCONT .Q24H [facility] Last Infusion: 02/28/22 06:40 Dose: 0 mls/hr Documented By: KOJO Lactated Ringer's (Lr) 1,000 mls @ 100 mls/hr IVCONT .Q10H [facility] Last Admin: 02/27/22 22:34 Dose: 100 mls/hr Documented By: CANDIE Ceftriaxone Sodium 2 gm/ (Sodium Chloride) 50 mls @ 100 mls/hr IV Q12H [facility] Last Infusion: 02/28/22 09:46 Dose: 0 mls/hr Documented By: KEYSHAWN Ampicillin Sodium 2 gm/ Sodium (Chloride) 100 mls @ 100 mls/hr IV Q4H [facility] Last Infusion: 02/28/22 11:15 Dose: 0 mls/hr Documented By: KEYSHAWN Vancomycin HCl 1,000 mg/ (Sodium Chloride) 270 mls @ 270 mls/hr IV Q12H [facility] Last Admin: 02/28/22 11:15 Dose: 270 mls/hr Documented By: KEYSHAWN Acyclovir Sodium 700 mg/ (Sodium Chloride) 264 mls @ 264 mls/hr IV Q8H RHIANNA Ondansetron HCl (Ondansetron Hcl 4 Mg/2 Ml Vial) 4 mg IVPUSH Q8H PRN PRN Reason: Nausea and Vomiting Pharmacy Consult (Consult Rx Vancomycin Dosing) 1 each MISCELLANE DAILY PRN PRN Reason: Consult order Sodium Chloride (0.9 % Sodium Chloride Flush 3 Ml Syringe) 3 ml IVFLUSH QSHIFT [facility] Last Admin: 02/28/22 08:46 Dose: 3 ml Documented By: KEYSHAWN Labs CBC & Chem 7: 02/28/22 05:33 02/27/22 11:30 Labs: Laboratory Results - last 24 hr 02/27/22 02/27/22 02/27/22 11:30 11:30 11:30 MCV 86.7 MCH 31.1 MCHC 35.9 RDW 12.2 Plt Count 218 MPV 9.6 Immature Gran % (Auto) 0.4 Neut % (Auto) 72.1 Lymph % (Auto) 16.2 L [place] % (Auto) 10.4 Eos % (Auto) 0.6 Baso % (Auto) 0.3 Lymph # (Auto) 2.3 [place] # (Auto) 1.5 H Eos # (Auto) 0.1 Baso # (Auto) 0.0 Abs Immat Gran (auto) 0.05 H Absolute Neuts (auto) 10.2 H Absolute Nucleated RBC 0.000 Nucleated RBC % (auto) 0.0 Anion Gap 15 Estim Creat Clear Calc 80.7 Estimated GFR > 60 Random Glucose 101 Lactic Acid 0.9 Calcium 9.4 Total Bilirubin 3.4 H Direct Bilirubin 0.6 H AST 21 ALT 17 Alkaline Phosphatase 72 Ammonia Total Creatine Kinase 183 H Total Protein 7.6 Albumin 4.1 Lipase 86 H TSH 2.19 Urine Color Urine Appearance Urine pH Ur Specific [place] Urine Protein Urine Glucose (UA) Urine Ketones Urine Blood Urine Nitrite Ur Leukocyte Esterase Urine RBC Urine WBC Ur Squamous Epith Cells Urine Bacteria Hyaline Casts CSF Tube Number CSF Volume CSF Appearance CSF Color CSF WBC CSF RBC CSF Neutrophils CSF Lymphocytes CSF Monocytes % CSF Other Cells % CSF Appearance (b) CSF Glucose CSF Total Protein CSF C.neoform/gat PCR CSF CMV DNA (PCR) CSF Enterovirus (PCR) CSF E. coli K1 (PCR) CSF H. influenzae (PCR) CSF HSV I (PCR) CSF HSV II (PCR) CSF HHV 6 (PCR) CSF L.monocytogenes PCR CSF N. meningitidis PCR CSF Parechovirus (PCR) CSF S. agalactiae (PCR) CSF S. pneumoniae (PCR) CSF VZV (PCR) Urine Opiates Screen Urine Fentanyl Screen Ur Barbiturates Screen Ur Phencyclidine Scrn Ur Amphetamines Screen U Benzodiazepines Scrn Urine Cocaine Screen U Marijuana (THC) Screen Ethyl Alcohol < 10 COVID-19 ([facility]) COVID-19 Clin Com 02/27/22 02/27/22 02/27/22 11:30 11:31 12:09 MCV MCH MCHC RDW Plt Count MPV Immature Gran % (Auto) Neut % (Auto) Lymph % (Auto) [place] % (Auto) Eos % (Auto) Baso % (Auto) Lymph # (Auto) [place] # (Auto) Eos # (Auto) Baso # (Auto) Abs Immat Gran (auto) Absolute Neuts (auto) Absolute Nucleated RBC Nucleated RBC % (auto) Anion Gap Estim Creat Clear Calc Estimated GFR Random Glucose Lactic Acid Calcium Total Bilirubin Direct Bilirubin AST ALT Alkaline Phosphatase Ammonia Total Creatine Kinase Total Protein Albumin Lipase TSH Urine Color Dark Yellow Urine Appearance Clear Urine pH 6.0 Ur Specific [place] 1.025 Urine Protein 30 (1+) H Urine Glucose (UA) Negative Urine Ketones Negative Urine Blood Trace H Urine Nitrite Negative Ur Leukocyte Esterase Negative Urine RBC 3-5 H Urine WBC 0-5 Ur Squamous Epith Cells 3-5 Urine Bacteria None Seen Hyaline Casts 0-2 CSF Tube Number CSF Volume CSF Appearance CSF Color CSF WBC CSF RBC CSF Neutrophils CSF Lymphocytes CSF Monocytes % CSF Other Cells % CSF Appearance (b) CSF Glucose CSF Total Protein CSF C.neoform/gat PCR CSF CMV DNA (PCR) CSF Enterovirus (PCR) CSF E. coli K1 (PCR) CSF H. influenzae (PCR) CSF HSV I (PCR) CSF HSV II (PCR) CSF HHV 6 (PCR) CSF L.monocytogenes PCR CSF N. meningitidis PCR CSF Parechovirus (PCR) CSF S. agalactiae (PCR) CSF S. pneumoniae (PCR) CSF VZV (PCR) Urine Opiates Screen Not Detected Urine Fentanyl Screen Not Detected Ur Barbiturates Screen Not Detected Ur Phencyclidine Scrn Not Detected Ur Amphetamines Screen Not Detected U Benzodiazepines Scrn Not Detected Urine Cocaine Screen Not Detected U Marijuana (THC) Screen Not Detected Ethyl Alcohol COVID-19 ([facility]) Negative COVID-19 Clin Com See Note 02/27/22 02/27/22 02/27/22 16:32 18:57 18:57 MCV MCH MCHC RDW Plt Count MPV Immature Gran % (Auto) Neut % (Auto) Lymph % (Auto) [place] % (Auto) Eos % (Auto) Baso % (Auto) Lymph # (Auto) [place] # (Auto) Eos # (Auto) Baso # (Auto) Abs Immat Gran (auto) Absolute Neuts (auto) Absolute Nucleated RBC Nucleated RBC % (auto) Anion Gap Estim Creat Clear Calc Estimated GFR Random Glucose Lactic Acid Calcium Total Bilirubin Direct Bilirubin AST ALT Alkaline Phosphatase Ammonia 25 Total Creatine Kinase Total Protein Albumin Lipase TSH Urine Color Urine Appearance Urine pH Ur Specific [place] Urine Protein Urine Glucose (UA) Urine Ketones Urine Blood Urine Nitrite Ur Leukocyte Esterase Urine RBC Urine WBC Ur Squamous Epith Cells Urine Bacteria Hyaline Casts CSF Tube Number 3 4 CSF Volume 1.0 CSF Appearance CLEAR CSF Color COLORLESS CSF WBC 73 H* CSF RBC 0 CSF Neutrophils 22 CSF Lymphocytes 64 CSF Monocytes % 13 CSF Other Cells % 1 CSF Appearance (b) Clear, Colorless CSF Glucose 59 CSF Total Protein 96.4 H CSF C.neoform/gat PCR CSF CMV DNA (PCR) CSF Enterovirus (PCR) CSF E. coli K1 (PCR) CSF H. influenzae (PCR) CSF HSV I (PCR) CSF HSV II (PCR) CSF HHV 6 (PCR) CSF L.monocytogenes PCR CSF N. meningitidis PCR CSF Parechovirus (PCR) CSF S. agalactiae (PCR) CSF S. pneumoniae (PCR) CSF VZV (PCR) Urine Opiates Screen Urine Fentanyl Screen Ur Barbiturates Screen Ur Phencyclidine Scrn Ur Amphetamines Screen U Benzodiazepines Scrn Urine Cocaine Screen U Marijuana (THC) Screen Ethyl Alcohol COVID-19 ([facility]) COVID-19 [employer] Com 02/27/22 02/28/22 18:57 05:33 MCV 87.5 MCH 30.5 MCHC 34.8 RDW 12.0 Plt Count 210 MPV 10.2 Immature Gran % (Auto) 0.3 Neut % (Auto) 72.1 Lymph % (Auto) 14.8 L [place] % (Auto) 10.2 Eos % (Auto) 2.2 Baso % (Auto) 0.4 Lymph # (Auto) 1.5 [place] # (Auto) 1.0 Eos # (Auto) 0.2 Baso # (Auto) 0.0 Abs Immat Gran (auto) 0.03 Absolute Neuts (auto) 7.3 Absolute Nucleated RBC 0.000 Nucleated RBC % (auto) 0.0 Anion Gap Estim Creat Clear Calc Estimated GFR Random Glucose Lactic Acid Calcium Total Bilirubin Direct Bilirubin AST ALT Alkaline Phosphatase Ammonia Total Creatine Kinase Total Protein Albumin Lipase TSH Urine Color Urine Appearance Urine pH Ur Specific [place] Urine Protein Urine Glucose (UA) Urine Ketones Urine Blood Urine Nitrite Ur Leukocyte Esterase Urine RBC Urine WBC Ur Squamous Epith Cells Urine Bacteria Hyaline Casts CSF Tube Number CSF Volume CSF Appearance CSF Color CSF WBC CSF RBC CSF Neutrophils CSF Lymphocytes CSF Monocytes % CSF Other Cells % CSF Appearance (b) CSF Glucose CSF Total Protein CSF C.neoform/gat PCR Not Detected CSF CMV DNA (PCR) Not Detected CSF Enterovirus (PCR) Not Detected CSF E. coli K1 (PCR) Not Detected CSF H. influenzae (PCR) Not Detected CSF HSV I (PCR) Not Detected CSF HSV II (PCR) Not Detected CSF HHV 6 (PCR) Not Detected CSF L.monocytogenes PCR Not Detected CSF N. meningitidis PCR Not Detected CSF Parechovirus (PCR) Not Detected CSF S. agalactiae (PCR) Not Detected CSF S. pneumoniae (PCR) Not Detected CSF VZV (PCR) Not Detected Urine Opiates Screen Urine Fentanyl Screen Ur Barbiturates Screen Ur Phencyclidine Scrn Ur Amphetamines Screen U Benzodiazepines Scrn Urine Cocaine Screen U Marijuana (THC) Screen Ethyl Alcohol COVID-19 ([facility]) COVID-19 Clin Com Microbiology Microbiology Results: Microbiology 02/27/22 18:57 Gram Stain - Final Cerebrospinal Fluid CSF Examination - Final Fluid Description - Final CSF Culture - Preliminary No growth to date. Assessment and Plan (1) Toxic metabolic encephalopathy: Status: Acute (2) Aseptic meningitis: Status: Acute Plan Patient without known medical history admitted for aseptic meningitis and AMS. Patient history unclear as he is unknown to the hospital and is a poor historian secondary to AMS. - Toxic metabolic encephalopathy 2/2 Aseptic meningitis Given the history of living in a van and walking in the duffy with his tox and reported tick bites there is a high chance of Lyme disease LP with 73 WBC, Total protein 96.4 Negative CSF encephalitis Pending Lyme workup Continue acyclovir, ampillin, ceftriaxone, and vanco until CSF and blood cultures resulted Pending ID evaluation Tylenol prn headaches Follow CBC daily - Hyperbilirubinemia AST/ALT and alk phos normal. No evidence of hemolytic anemia Repeat CMP today consider RUQ u/s -Acute diarrhea Improved Pending C diff and diarrhea panel DVT prophylaxis Lovenox Patient will need overnight hospital stay to continue management of aseptic meningitis with AMS requiring broad spectrum IV antibiotics and antivirals pending final cultures and infectious disease evaluation Quality Stroke Does the patient have a stroke diagnosis?: No VTE Prior VTE?: No VTE Risk Level:: Medical - moderate - high VTE Device Contraindication: Treatment Not Indicated VTE Drug Contraindication: N/A - Med Ordered
[2022-02-28 13:48] LABS: Alanine Aminotransferase 11 U/L (0-40); Albumin Level 3.5 g/dL (3.5-5.0); Alkaline Phosphatase 65 U/L (39-117); Anion Gap 12 (12-20); Aspartate Amino Transferase 14 U/L (5-37); Blood Urea Nitrogen 11 mg/dL (9-16); Calcium 8.5 mg/dL (8.4-10.2); Carbon Dioxide 27 mmol/L (22-29); Chloride 100 mmol/L (96-108); Estimated Glomerular Filt Rate > 60; Glucose Random 120 mg/dL (60-115); Potassium 3.1 mmol/L (3.3-5.1); Sodium 136 mmol/L (135-145); Total Protein 6.3 g/dL (6.5-8.0)
[2022-02-28] MEDS: Lactated Ringers 1,000 ML 100 ML IVCONT (14:28)
[2022-02-28 15:10] VITALS: BP 169/92; PULSE 68; RESP 15; TEMP 37.1; O2SAT 94
[2022-02-28 20:00] VITALS: BP 130/76; PULSE 54; RESP 18; TEMP 36.2; O2SAT 95
[2022-02-28 21:37] LABS: Vancomycin Random 7.6 mcg/mL (15-20)
[2022-02-28] MEDS: Enoxaparin Sodium 40 MG/0.4 ML SYRINGE SUBCUT (22:04)
[2022-02-28 23:45] VITALS: BP 140/69; PULSE 69; RESP 18; TEMP 36.2; O2SAT 95
[2022-03-01] MEDS: Lactated Ringers 1,000 ML 100 ML IVCONT ×2 (01:27→17:27)
[2022-03-01 02:47] VITALS: BP 163/85; PULSE 57; RESP 16; TEMP 36.2; O2SAT 96
[2022-03-01] MEDS: SODIUM CHLORIDE 0.9% IV ×3 (05:37→22:19)
[2022-03-01] MEDS: ACYCLOVIR SODIUM IV ×3 (05:37→22:19)
[2022-03-01 06:49] LABS: Hematocrit 38.3 % (42.0-52.0); Hemoglobin 13.8 g/dl (14.0-18.0); Mean Corpuscular Hemoglobin 31.3 pg (27.0-33.0); Mean Corpuscular Volume 86.8 fL (80.0-98.0); Mean Platelet Volume 10.6 fL (9.4-12.4); Platelet Count 267 X10*3/uL (160-400); Red Blood Count 4.41 X10*6/uL (4.60-5.80); Red Cell Distribution Width 11.9 % (11.0-16.0); White Blood Count 10.6 X10*3/uL (4.8-10.8)
[2022-03-01 07:07] LABS: Anion Gap 15 (12-20); Blood Urea Nitrogen 9 mg/dL (9-16); Calcium 8.6 mg/dL (8.4-10.2); Carbon Dioxide 24 mmol/L (22-29); Chloride 100 mmol/L (96-108); Estimated Glomerular Filt Rate > 60; Glucose Random 104 mg/dL (60-115); Potassium 3.4 mmol/L (3.3-5.1); Sodium 136 mmol/L (135-145)
[2022-03-01 07:08] LABS: Creatinine Clr Calc Pharmacy 107.6; Estimated Glomerular Filt Rate > 60
[2022-03-01 07:37] VITALS: BP 169/85; PULSE 67; RESP 18; TEMP 36.4; O2SAT 98
[2022-03-01] MEDS: cefTRIAXone sodium 2 GM in 0.9 % Sodium Chloride 50 ML IV ×2 (09:15→20:47)
[2022-03-01] MEDS: 0.9 % Sodium Chloride Flush 3 ML SYRINGE IVFLUSH ×2 (09:15→17:27)
[2022-03-01] MEDS: amLODIPine Besylate 5 MG TABLET PO (09:15)
--- NOTE | 2022-03-01 10:07 | MHC.CM.PN ---
PT REPORTS HE LIVES ALONE AND IS INDEPENDENT WITH CARE AT BASELINE PT DENIES USE OF DME OR HAVING HOME SERVICES PT REPORTS HE DOES NOT HAVE A HCP, HE IS UNSURE IF HE WOULD LIKE TO DO ONE BUT IS AWARE CM CAN ASSIST ANYTIME DURING ADMISSION PT REPORTS HE IS COVID-19 VACCINATED PT CONFIRMS HIS PCP IS ALEX DOSHI PT REPORTS HE HOPES TO GO HOME WITH NO SERVICES HE WILL CALL A FRIEND TO TRANSPORT
--- NOTE | 2022-03-01 10:12 | P.CDIC_ITS ---
CDI Concurrent Query Documentation Clarification: PHYSICIAN'S DOCUMENTATION REQUEST Date of Query: 03/01/22 1012 Patient Name: Diogo Combs Admit Date: 02/27/22 Dear Doctor, A review of the medical record indicates additional documentation may be needed. Please review below and update the documentation accordingly. Clinical Indicators: Is there a diagnosis that correlates to these lab findings: Risk Factors/Clinical Indicators/Treatments LABS: potassium 3.1 IV fluids Based on the above, could you clarify in the Progress Notes the appropriate diagnosis, if significant, that supports the above abnormalities and additional evaluation, monitoring, and/or treatment rendered: Hypokalemia or other etiology of lab findings * Labs indicate a diagnosis of (please specify) * Other (please specify) * Unable to determine Use of terms such as suspected, likely, concern for, or probable (associated with a specific diagnosis that is being evaluated, monitored, or treated as if it exists) are acceptable and can be coded in the inpatient setting, when documented at the time of discharge. Thank you, Apple Sesay [facility], CDIS Extension: [phone] Please use your independent medical judgment in providing your response. THIS QUERY IS PART OF THE PERMANENT MEDICAL RECORD Provider Response: Other Other Diagnosis: Hypokalemia
--- NOTE | 2022-03-01 10:34 | P.PNIM_ITS ---
Subjective Subjective Date of Service: 03/01/22 Interval History: the patient was seen and evaluated this morning Laying in bed, feels improvement since admission More alert and interactive still feeling generalized weakness Denies any fever, chills or shortness of breath No reported other overnight events. Systemic review: No fever, chills No chest pain, palpitation No shortness of breath or coughing No abdominal pain, nausea or vomiting No urinary symptoms No any rash or wounds Still feeling mildly confused Physical Exam 2 Vital Signs: Vital Signs: Last Vital Signs Temp 97.6 F 03/01/22 07:37 Pulse 67 03/01/22 07:37 Resp 18 03/01/22 07:37 BP 169/85 H 03/01/22 07:37 Pulse Ox 98 03/01/22 07:37 O2 Del Method 03/01/22 07:37 BMI result Body Mass Index 29.5 Const: Other: Constitutional : Alert, interactive, not in distress Neck : Normal inspection, Supple Cardiovascular : RRR, no JVP, no lower extremity edema Respiratory : fair bilateral air entry, no crackles, wheezes or rhonchi Gastrointestinal: soft, lax, Normal bowel sounds, Non tender Skin : Warm, Dry, no rash Neurological : Alert & oriented x3, slow in responses, No focal deficit Objective Data Active Medications Acetaminophen (Acetaminophen Supp 650 Mg Supp.Rect) 650 mg [place] Q6H PRN PRN Reason: Pain, Mild (Pain Scale 1-3) Amlodipine Besylate (Amlodipine Besylate 5 Mg Tablet) 5 mg PO DAILY COUNTS INCLUDE 234 BEDS AT THE [facility]; Protocol Last Admin: 03/01/22 09:15 Dose: 5 mg Documented By: KEYSHAWN Doxycycline Hyclate (Doxycycline Hyclate 100 Mg Tablet) 100 mg PO Q12H COUNTS INCLUDE 234 BEDS AT THE [facility] Last Admin: 03/01/22 01:29 Dose: 100 mg Documented By: WYATT Enoxaparin Sodium (Enoxaparin Sodium 40 Mg/0.4 Ml Syringe) 40 mg SUBCUT Q24H COUNTS INCLUDE 234 BEDS AT THE [facility] Last Admin: 02/28/22 22:04 Dose: 40 mg Documented By: WYATT Lactated Ringer's (Lr) 1,000 mls @ 100 mls/hr IVCONT .Q10H COUNTS INCLUDE 234 BEDS AT THE [facility] Last Admin: 03/01/22 01:27 Dose: 100 mls/hr Documented By: WYATT Ceftriaxone Sodium 2 gm/ (Sodium Chloride) 50 mls @ 100 mls/hr IV Q12H COUNTS INCLUDE 234 BEDS AT THE [facility] Last Infusion: 03/01/22 09:49 Dose: 0 mls/hr Documented By: KEYSHAWN Acyclovir Sodium 700 mg/ (Sodium Chloride) 264 mls @ 264 mls/hr IV Q8H COUNTS INCLUDE 234 BEDS AT THE [facility] Last Infusion: 03/01/22 06:41 Dose: 0 mls/hr Documented By: SATNAMRISJadyn Ondansetron HCl (Ondansetron Hcl 4 Mg/2 Ml Vial) 4 mg IVPUSH Q8H PRN PRN Reason: Nausea and Vomiting Pharmacy Consult (Consult Rx Vancomycin Dosing) 1 each MISCELLANE DAILY PRN PRN Reason: Consult order Sodium Chloride (0.9 % Sodium Chloride Flush 3 Ml Syringe) 3 ml IVFLUSH QSHIFT COUNTS INCLUDE 234 BEDS AT THE [facility] Last Admin: 03/01/22 09:15 Dose: 3 ml Documented By: KEYSHAWN Labs CBC & Chem 7: 03/01/22 05:31 03/01/22 05:31 Labs: Laboratory Results - last 24 hr 02/28/22 02/28/22 03/01/22 13:04 21:02 05:31 MCV MCH MCHC RDW Plt Count MPV Absolute Nucleated RBC Nucleated RBC % (auto) Anion Gap 12 Estim Creat Clear Calc 96.0 107.6 Estimated GFR > 60 > 60 Random Glucose 120 H Calcium 8.5 D Total Bilirubin 2.0 H AST 14 ALT 11 Alkaline Phosphatase 65 Total Protein 6.3 L Albumin 3.5 Random Vancomycin 7.6 L 03/01/22 03/01/22 05:31 05:31 MCV 86.8 MCH 31.3 MCHC 36.0 RDW 11.9 Plt Count 267 D MPV 10.6 Absolute Nucleated RBC 0.000 Nucleated RBC % (auto) 0.0 Anion Gap 15 Estim Creat Clear Calc 106.0 Estimated GFR > 60 Random Glucose 104 Calcium 8.6 Total Bilirubin AST ALT Alkaline Phosphatase Total Protein Albumin Random Vancomycin Microbiology Microbiology Results: Microbiology 02/27/22 18:57 Gram Stain - Final Cerebrospinal Fluid CSF Examination - Final Fluid Description - Final CSF Culture - Preliminary No growth after 1 day 02/27/22 11:31 Blood Culture - Preliminary Blood - Venous No growth after 24 hours. 02/27/22 11:30 Blood Culture - Preliminary Blood - Venous No growth after 24 hours. Assessment and Plan (1) Toxic metabolic encephalopathy: Status: Acute (2) Aseptic meningitis: Status: Acute Plan Patient without known medical history admitted for aseptic meningitis and AMS. Patient history unclear as he is unknown to the hospital and is a poor historian secondary to AMS. - Toxic metabolic encephalopathy 2/2 Aseptic meningitis Given the history of living in a van and walking in the duffy with his tox and reported tick bites there is a high chance of Lyme disease LP with 73 WBC, Total protein 96.4 Negative CSF encephalitis Pending Lyme workup Discussed with cardiology who recommended to continue ceftriaxone and start doxycycline p.o. b.i.d. 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
[2022-03-01 11:20] VITALS: BP 156/83; PULSE 50; RESP 18; TEMP 36.3; O2SAT 96
--- NOTE | 2022-03-01 12:23 | MHC.CLN ---
NUTRITION ADDING ENSURE BID. PROVIDES ADDITIONAL 700 KCALS, 40 G PROTEIN. REPORT OF NOT FEELING WELL IN RECENT WEEKS AND CURRENT INTAKE APPEARS LIMITED.
[2022-03-01 12:49] VITALS: BP 156/83; PULSE 50; O2SAT 96
--- NOTE | 2022-03-01 13:52 | MHC.CM.PN ---
PLAN IS 1-2 MORE DAYS HERE AND DC HOME - SELF CARE
--- NOTE | 2022-03-01 14:20 | P.CNID_ITS ---
History of Present Illness Data of Consult Service Date: 03/01/22 Requesting physician: Pia Marinelli Primary Care Provider: Kayce Regalado MD [facility] Reason for consult: aseptic meningitis He presents with fever as well as neck pain when bending neck. He feels weak and has fatigue. He does walk in duffy quite a bit Review of Systems Review of Systems: Yes all other systems are reviewed and are negative PMFSH Family History Family history: reviewed and not pertinent Social History Social History Household Members: None Housing: Homeless Alcohol intake: former Patient Tobacco Use Status: Former Tobacco user service: No Current occupational status: retired Meds Allergies Allergy/AdvReac Type Severity Reaction Status Date / Time Unable to Assess Allergy Unverified 02/27/22 11:09 Active Medications: Current Medications Acetaminophen (Acetaminophen Supp 650 Mg Supp.Rect) 650 mg [place] Q6H PRN PRN Reason: Pain, Mild (Pain Scale 1-3) Amlodipine Besylate (Amlodipine Besylate 5 Mg Tablet) 5 mg PO DAILY [facility]; Protocol Last Admin: 03/01/22 09:15 Dose: 5 mg Doxycycline Hyclate (Doxycycline Hyclate 100 Mg Tablet) 100 mg PO Q12H [facility] Last Admin: 03/01/22 01:29 Dose: 100 mg Enoxaparin Sodium (Enoxaparin Sodium 40 Mg/0.4 Ml Syringe) 40 mg SUBCUT Q24H [facility]NA Last Admin: 02/28/22 22:04 Dose: 40 mg Lactated Ringer's (Lr) 1,000 mls @ 100 mls/hr IVCONT .Q10H [facility] Last Admin: 03/01/22 01:27 Dose: 100 mls/hr Ceftriaxone Sodium 2 gm/ (Sodium Chloride) 50 mls @ 100 mls/hr IV Q12H [facility] Last Infusion: 03/01/22 09:49 Dose: Infused Acyclovir Sodium 700 mg/ (Sodium Chloride) 264 mls @ 264 mls/hr IV Q8H [facility] Last Infusion: 03/01/22 06:41 Dose: Infused Ondansetron HCl (Ondansetron Hcl 4 Mg/2 Ml Vial) 4 mg IVPUSH Q8H PRN PRN Reason: Nausea and Vomiting Pharmacy Consult (Consult Rx Vancomycin Dosing) 1 each MISCELLANE DAILY PRN PRN Reason: Consult order Sodium Chloride (0.9 % Sodium Chloride Flush 3 Ml Syringe) 3 ml IVFLUSH QSHIFT [facility] Last Admin: 03/01/22 09:15 Dose: 3 ml Home Medications Medication Instructions Recorded Confirmed Last Taken Type No Known Home Meds 02/27/22 02/27/22 Unknown History Physical Exam Vital Signs: Vital Signs: Last Vital Signs Temp 97.3 F 03/01/22 11:20 Pulse 50 03/01/22 12:49 Resp 18 03/01/22 11:20 BP 156/83 H 03/01/22 12:49 Pulse Ox 96 03/01/22 12:49 O2 Del Method 03/01/22 11:20 BMI result Body Mass Index 29.5 Const: General: cooperative HEENT: Head: Yes normal to inspection Face and sinus: Yes normal facial exam Mouth: Normal oral and palatal mucosa present Teeth and gingiva: dentition normal Eyes: General: appearance normal, both eyes and all related structures Pupils: Equal, round and reactive pupils present Resp: Effort & Inspection: normal respiratory effort Cardio: Rate: regular rate Rhythm: regular rhythm GI: Palpation (GI): Soft to palpation and nontender : General: Yes no CVA tenderness Back/Spine/Pelvis: Back: no CVA tenderness Skin: General skin exam: no rashes or lesions noted Neuro: General: moves all extremities Cranial nerves: Yes Equal, round and reactive pupils present Extrem: General: Yes normal to inspection Psych: Appearance: grossly normal Results Labs CBC & Chem 7: 03/01/22 05:31 03/01/22 05:31 Labs: Short CBC 03/01/22 Range/Units 05:31 WBC 10.6 (4.8-10.8) X10*3/uL Hgb 13.8 L (14.0-18.0) g/dl Hct 38.3 L (42.0-52.0) % Plt Count 267 D (160-400) X10*3/uL BMP 03/01/22 03/01/22 05:31 05:31 Sodium 136 Potassium 3.4 Chloride 100 Carbon Dioxide 24 BUN 9 Creatinine 0.66 0.67 Calcium 8.6 Microbiology Microbiology Results: Microbiology 02/27/22 11:31 Blood - Venous Blood Culture - Preliminary No growth after 48 hours. 02/27/22 11:30 Blood - Venous Blood Culture - Preliminary No growth after 48 hours. 02/27/22 18:57 Cerebrospinal Fluid Gram Stain - Final 02/27/22 18:57 Cerebrospinal Fluid CSF Examination - Final 02/27/22 18:57 Cerebrospinal Fluid Fluid Description - Final 02/27/22 18:57 Cerebrospinal Fluid CSF Culture - Preliminary No growth after 1 day Assessment and Plan (1) Aseptic meningitis: Status: Acute He has aseptic meningitis He has negative meningitis encephalitis panel. He has possible tick born illness,possible West Nile,other viral,possible due to medication but hasnt taken anything different. Plan Po Doxycycline for 10 days Consider West Nile serology,Lyme antibody
[2022-03-01 16:00] VITALS: BP 176/95; PULSE 65; RESP 18; TEMP 36.3; O2SAT 95
[2022-03-01 19:43] VITALS: BP 143/87; PULSE 62; RESP 18; TEMP 36.7; O2SAT 96
[2022-03-01] MEDS: Enoxaparin Sodium 40 MG/0.4 ML SYRINGE SUBCUT (22:27)
[2022-03-02 03:30] VITALS: BP 162/86; PULSE 55; RESP 18; TEMP 36.8; O2SAT 96
[2022-03-02] MEDS: SODIUM CHLORIDE 0.9% IV (05:43)
[2022-03-02] MEDS: ACYCLOVIR SODIUM IV (05:43)
[2022-03-02 06:59] LABS: Creatinine Clr Calc Pharmacy 107.6; Estimated Glomerular Filt Rate > 60
[2022-03-02 07:02] LABS: Anion Gap 14 (12-20); Blood Urea Nitrogen 7 mg/dL (9-16); Calcium 8.7 mg/dL (8.4-10.2); Carbon Dioxide 25 mmol/L (22-29); Chloride 104 mmol/L (96-108); Creatinine Clr Calc Pharmacy 107.6; Estimated Glomerular Filt Rate > 60; Glucose Random 85 mg/dL (60-115); Potassium 3.2 mmol/L (3.3-5.1); Sodium 140 mmol/L (135-145)
[2022-03-02 07:38] VITALS: BP 160/85; PULSE 50; RESP 18; TEMP 36.6; O2SAT 94
[2022-03-02] MEDS: cefTRIAXone sodium 2 GM in 0.9 % Sodium Chloride 50 ML IV (09:11)
[2022-03-02] MEDS: Potassium Chloride Packet 20 MEQ PACKET 40 MEQ PO (09:11)
[2022-03-02] MEDS: amLODIPine Besylate 5 MG TABLET PO (09:11)
[2022-03-02] MEDS: 0.9 % Sodium Chloride Flush 3 ML SYRINGE IVFLUSH (09:12)
--- NOTE | 2022-03-02 10:06 | MHC.CM.PN ---
Addendum entered by Sari Chong 03/02/22 11:45: CM MET WITH PT AGAIN TO DISCUSS DC PLANS PTS MEDICARE RIGHTS WERE REVIEWED PT REPORTS HE WOULD JUST SOON GO PT REPORTS HIS FRIEND WILL PICK HIM UP AT 1400 HOURS PT IS AWARE HE WILL BE CONTACTED BY OUT PATIENT PT FOR AN APPT HE REPORTS HE WILL GET A RIDE FROM A FRIEND UNTIL HE IS FEELING UP TO DRIVING AGAIN AND CAN GET HIS CAR REPAIRED Addendum entered by Sari Chong 03/02/22 10:08: CM RECEIVED A PHONE CALL FROM PTS FRIEND/PRIMARY CONTACT, DEBBI, WHO REPORTS THE PT TOLD HIM HE WAS BEING KICKED OUT. CM EXPLAINED THE PT IS NOT BEING KICKED OUT, BUT IS MEDICALLY CLEARED SO WILL NEED TO FINALIZE A DC PLAN TODAY DEBBI REPORTS THE PT DOES NOT HAVE ANYONE HE CAN STAY WITH AND SAYS HE WISHES HE COULD STAY HERE A COUPLE OF MORE DAYS SO THAT HE WOULD BE STRONGER. TOYA EXPLAINED THE PT IS IN NEED OF PT, AND WOULD NOT GET THAT INPATIENT, THEREFORE WOULD LIKELY GET WEAKER. DEBBI REPORTS HE MAY BE ABLE TO MEDIA ANALYST THE PT LATER IN THE DAY, BUT FEELS THE PT MAY APPEAL THE DC PT WILL DC BACK TO HIS PRIOR LIVING SITUATION WITH A PLAN TO ATTEND OUTPATIENT PT HIS FRIEND WILL TRANSPORT Original Note: TOYA MET WITH PT TO DISCUSS DC PLANNING HE IS AWARE HOME PT HAS BEEN RECOMMENDED HOWEVER HE IS LIVING IN HIS VAN HE REPORTS HE HAS TWO LARGE DOGS AT HOME WELL HE NEEDS TO RETURN TO HE REPORTS HE WILL NEED TO DC BACK TO THE COMMUNITY DUE TO THE DOGS, SO CANNOT GO TO A SNF HE ALSO CANNOT GO TO A SKILLED NURSING HE REPORTS HE IS UNSURE IF THERE IS ANYONE HE CAN STAY WITH, HE WILL CALL SOME FRIENDS CM WILL RETURN ONCE HE HAS MADE CALLS
[2022-03-02 12:00] VITALS: BP 172/88; PULSE 58; RESP 18; TEMP 36.4; O2SAT 92
--- NOTE | 2022-03-02 12:13 | PM.DS ---
DS: Providers Provider Date of Service: 03/02/22 Date of admission: 02/27/22 21:20 Primary care physician: Kayce Regalado MD Consults: 02/28/22 07:48 Consult to Infectious Diseases Routine Consulting Provider: Oralia Sebastian Reason for consultation: AMS, abnormal CSF, aspetic meningitis ? DS: Diagnosis Discharge Diagnosis (1) Aseptic meningitis: Status: Acute (2) Toxic metabolic encephalopathy: Status: Acute DS: Summary Hospital Course Hospital Course: Admission note HPI 76 year old male without known medical history brought to the ED today by a friend who did not come into the department for what patient reports as 3 weeks of fatigue, subjective fevers, shaking chills that has worsened over the last few days now with 1-2 episodes of watery diarrhea daily, polyarthalgia, and decreased oral intake. Reports symptoms started after he worked outside in the rain and slept in wet clothes. He states he came from home where he lives with two dogs and then later states that his home is actually a van. Upon questioning he states he has had headaches and sore throat over the last 3 weeks but did not volunteer this information. Has been somewhat confused since arrival with vague history. In ED, leukocytosis of 14.1. Renal function normal. Elevated bilirubin 3.4, direct bili 0.6 AST/ALT and alk phos normal. CSF with WBC 73, total protein 96.4. Fluid is clear and colorless without significant glucose or RBC. Remainder of meningitis panel is pending. Has received IV acyclovir, ceftriaxone, ampicillin, and vancomycin. CXR, Ct head, and CT abd/pelvis negative for acute abnormality. Hospital course The patient was admitted to hospital for evaluation of altered mentation. CT scan of the head was negative for any acute findings. Lumbar puncture was done showing evidence of elevated WBCs of 73 and total protein of 96. Negative CSF encephalitis panel. Pending Lyme and West 9 blood work. Covered primarily with vancomycin, ceftriaxone, acyclovir and ampicillin. Evaluated by infectious disease specialist who recommended 10 days of doxycycline b.i.d. for possible Lyme or West Nile infection from tick-borne source. Noted to have elevated blood pressure readings. Started on amlodipine with mild response. To be discharged on amlodipine and follow-up with his primary care for further adjustments. Noted to have elevated bilirubin at admission which trended down believed to be secondary to dehydration. Continue doxycycline for 10 more days Start amlodipine for blood pressure control Check your blood pressure at home for 1 week and report readings to your PCP Time Spent with Patient Time attestation: Total time spent providing and/or coordinating discharge services: Discharge coordination time: Greater than 30 minutes Quality: Safe Use of Opioids Does Pt have an Active Cancer Diagnosis on the Problem List?: No Quality: Stroke Does the patient have a stroke diagnosis?: No Physical Exam Vital Signs: Vital Signs: Last Vital Signs Temp 97.8 F 03/02/22 07:38 Pulse 50 03/02/22 07:38 Resp 18 03/02/22 07:38 BP 160/85 H 03/02/22 07:38 Pulse Ox 94 03/02/22 07:38 O2 Del Method 03/02/22 07:38 BMI result Body Mass Index 29.5 Const: Other: Constitutional : Alert, interactive, not in distress Neck : Normal inspection, Supple Cardiovascular : RRR, no JVP, no lower extremity edema Respiratory : fair bilateral air entry, no crackles, wheezes or rhonchi Gastrointestinal: soft, lax, Normal bowel sounds, Non tender Skin : Warm, Dry, no rash Neurological : Alert & oriented x3, slow in responses, No focal deficit DS: Data Data Completed and Pending Labs on day of discharge: Laboratory Results - last 24 hr 03/02/22 03/02/22 06:11 06:11 Sodium 140 Potassium 3.2 L Chloride 104 Carbon Dioxide 25 Anion Gap 14 BUN 7 L Creatinine 0.66 0.66 Estim Creat Clear Calc 107.6 107.6 Estimated GFR > 60 > 60 Random Glucose 85 Calcium 8.7 Preliminary micro results at discharge 02/27/22 18:57 CSF Culture - Preliminary Cerebrospinal Fluid No growth after 2 days 02/27/22 11:31 Blood Culture - Preliminary Blood - Venous No growth after 48 hours. 02/27/22 11:30 Blood Culture - Preliminary Blood - Venous No growth after [address] scan - head: Radiologist's impression: ITS Impressions Chest X-Ray 02/27/22 11:05 IMPRESSION: Unremarkable examination. Head CT 02/27/22 11:58 IMPRESSION: No acute intracranial finding. Abdomen/Pelvis CT 02/27/22 12:59 IMPRESSION: Limited by motion. No acute finding. Discharge Plan Discharge Patient Disposition: Home, Self-Care Discharge Diagnosis: Toxic metabolic encephalopathy Aseptic meningitis Referrals: Kayce Regalado MD [Primary Care Provider] - 1 Week Discharge Medications: New doxycycline hyclate 100 mg Tablet 100 mg PO Q12H 10 Days Qty: 20 0RF amlodipine 5 mg Tablet 10 mg PO DAILY 30 Days Qty: 60 0RF Protocol: Hold for SBP< HOLD for SBP < : 90 Discharge Orders: Discharge Order (Routine); Ordered 03/02/22 Ordered By: Pia Marinelli Diet: Advance to usual diet Activity on Discharge: As tolerated Stand Alone Forms: Patient Portal Discharge page Care Plan Goals: Read below Health Concerns: Read below Plan of Treatment: Read below Assessment: You were admitted to the hospital for evaluation of altered mentation. Images were negative for any acute findings. Spinal tap was done showing evidence of possible infection. Evaluated by infectious disease specialist who recommended 10 days of doxycycline for possible Lyme disease pending final blood work. Continue doxycycline for 10 more days Start amlodipine for blood pressure control Check your blood pressure at home for 1 week and report readings to your PCP
[2022-03-03 19:57] LABS: Lyme IgG CSF Immunoblot NO BANDS DETECTED; Lyme IgM CSF Immunoblot NO BANDS DETECTED
== END 2022-03-02 14:58 | disposition home or self-care (01) | DRG 97 ==
LOC: HO.ED 20:22 → HO.EDOVER 21:27 → HO.S3 02-28 07:04
PROVIDERS: Emergency Medicine; Physician Assistant; Admitting Provider Physician Assistant; Emergency Provider Internal Medicine; PCP Family Medicine; Visit Provider Student in an Organized Health Care Education/Training Program
DX: G03.0 Nonpyogenic meningitis (principal); G92.8 Other toxic encephalopathy; A69.20 Lyme disease, unspecified; I10 Essential (primary) hypertension; E87.6 Hypokalemia; Z20.822 Contact with and (suspected) exposure to COVID-19; Z87.891 Personal history of nicotine dependence
CPT/HCPCS: 36415; 70450; 71046; 74177; 80048; 80053; 80076; 80202; 80307; 81001; 82077; 82140; 82550; 82565; 82945; 83605; 83690; 84157; 84443; 84484; 85025; 85027; 86617; 87015; 87040; 87070; 87205; 87483; 87635; 89051; 93005; 97162; 99285; J0133; J0290; J0696; J1650; J3370; Q9967

== ENCOUNTER 2022-03-02 17:02 | Emergency (ER) | payer MEDICARE, MEDICAID, SELFPAY ==
--- NOTE | ~2022-03-02 | XR_ITS ---
EXAMINATION: XR CHEST CLINICAL INFORMATION: Cough COMPARISON: Chest x-ray 02/27/2022 TECHNIQUE: 2 views of the chest were obtained. FINDINGS: Cardiac silhouette is stable. The lungs are adequately aerated. There is no lobar consolidation. No pleural effusion or pneumothorax. Mild degenerative changes of the spine. XR/XR chest 2V IMPRESSION: Stable examination demonstrating no acute pulmonary pathology.
[2022-03-02 17:26] VITALS: BP 153/88; BP 154/84; PULSE 58; PULSE 70; RESP 18; TEMP 36.7; O2SAT 95; O2SAT 97; BMI 32.5
--- NOTE | 2022-03-02 17:48 | ED_ITS ---
HPI - General Adult General Chief complaint: Altered Mental Status Stated complaint: AMS,SEEN @ [facility] RECENTLY PER EMS Time Seen by Provider: 03/02/22 17:20 Source: patient Mode of arrival: EMS History of Present Illness HPI narrative: 76-year-old male who presents via EMS for feeling ?discombobulated and not well enough to drive and so he was unable to get his prescriptions after being discharged this afternoon. Follow-up patient was offered rehab services he declined at the time. He denies any shortness of breath or chest pain but states that he ?does not feel himself?. Related Data Previous Rx's Medication Instructions Recorded amlodipine 5 mg tablet 10 mg PO DAILY 30 days #60 tabs 03/02/22 doxycycline hyclate 100 mg tablet 100 mg PO Q12H 10 days #20 tabs 03/02/22 Allergies Allergy/AdvReac Type Severity Reaction Status Date / Time Unable to Assess Allergy Unverified 02/27/22 11:09 Review of Systems Review of Systems: Pertinent positives and negatives as stated in HPI 10 point review of systems is otherwise negative. PMFSH Past Medical History Source: nursing notes reviewed Social History Social History Household Members: None Housing: Homeless Alcohol intake: former Patient Tobacco Use Status: Former Tobacco user Use of substances other than those prescribed or required for medical reasons: No Advance Directives: No Advance Directives Information Provided: Yes service: No Current occupational status: retired Physical Exam ED Vital Signs: Vital Signs - 24 hr 03/02/22 17:26 03/02/22 18:32 Temperature 98.0 F Pulse Rate 70 78 Respiratory Rate 18 12 Blood Pressure 153/88 H 162/75 H Pulse Oximetry 95 96 Oxygen Delivery Method Room Air Room Air BMI result Body Mass Index 32.5 VITAL SIGNS: Reviewed. GENERAL: Well developed, well nourished, in no acute distress. HEAD: Normocephalic/atraumatic EYES: PERRLA, EOMI EARS: Ext canals without abnormality OROPHARYNX: no oral lesions noted, posterior pharynx clear LUNGS: Normal breath sounds. No adventitious sounds or accessory muscle use. SpO2<96> CARDIOVASCULAR: Regular rate and rhythm without noted murmurs, no JVD or lower extremity edema. ABDOMEN: Soft, non-tender, non-distended with bowel sounds. MUSCULOSKELETAL: No tenderness, deformities, or effusions noted on gross inspection. EXTREMITIES: No cyanosis, clubbing or edema. SKIN: Inspection of the skin reveals no rashes NEUROLOGIC: Alert and oriented x 4, but speech is slow. Strength and sensation to light touch were grossly intact x 4, no facial asymmetry, no pronator drift, cranial nerves 2-12 are grossly intact.. Course Course Course Narrative: 76-year-old male with history and clinical presentation consistent with his discharge diagnosis of aseptic meningitis, basic labs were re-evaluated as well as chest x-ray and urinalysis and patient is currently medically cleared for further placement in short-term rehab. A consult for case management as well as physical therapy were placed. Patient's medication reconciliation is completed. Reevaluation(s) Reevaluation #1: Patient placed in physician observation because the patient needed more time for placement into short-term rehab. At the time observation was started the patient's vital signs were stable, patient is alert and oriented, neuro: Nonfocal, CV RRR, lungs clear Time: 22:24 Medical Decision Making Lab Data Result diagrams: 03/02/22 21:20 03/02/22 21:20 Labs: Lab Results 03/02/22 03/02/22 03/02/22 Range/Units 21:20 21:20 21:20 WBC 11.9 H (4.8-10.8) X10*3/uL RBC 4.48 L (4.60-5.80) X10*6/uL Hgb 13.8 L (14.0-18.0) g/dl Hct 39.3 L (42.0-52.0) % MCV 87.7 (80.0-98.0) fL MCH 30.8 (27.0-33.0) pg MCHC 35.1 (31.0-36.0) g/dl RDW 12.2 (11.0-16.0) % Plt Count 305 (160-400) X10*3/uL MPV 9.5 (9.4-12.4) fL Immature Gran % (Auto) 0.4 (0.0-0.4) % Neut % (Auto) 76.2 H (45-73) % Lymph % (Auto) 14.3 L (20-40) % Wallace % (Auto) 7.9 (2-11) % Eos % (Auto) 0.8 (0-4) % Baso % (Auto) 0.4 (0-2) % Lymph # (Auto) 1.7 (1.2-4.9) X10*3/uL Wallace # (Auto) 0.9 (0.1-1.2) X10*3/uL Eos # (Auto) 0.1 (0.0-0.4) X10*3/uL Baso # (Auto) 0.1 (0.0-0.2) X10*3/uL Abs Immat Gran (auto) 0.05 H (0.00-0.03) X10*3/uL Absolute Neuts (auto) 9.1 H (2.0-8.3) x10*3/uL Absolute Nucleated RBC 0.000 (0.0-0.012) X10*3/uL Nucleated RBC % (auto) 0.0 (0.0-0.2) /100WBC Sodium 138 (135-145) mmol/L Potassium 3.7 (3.3-5.1) mmol/L Chloride 100 (96-108) mmol/L Carbon Dioxide 29 (22-29) mmol/L Anion Gap 13 (12-20) BUN 9 (9-16) mg/dL Creatinine 0.78 (0.5-1.4) mg/dL Estim Creat Clear Calc 92.5 Estimated GFR > 60 Random Glucose 116 H D (60-115) mg/dL Calcium 9.7 D (8.4-10.2) mg/dL Total Bilirubin 0.9 (0.0-1.0) mg/dL AST 26 D (5-37) U/L ALT 19 (0-40) U/L Alkaline Phosphatase 67 (39-117) U/L Total Protein 6.7 (6.5-8.0) g/dL Albumin 3.8 (3.5-5.0) g/dL COVID-19 ([facility]) Negative (Negative) COVID-19 Clin Com See Note Discharge Plan Discharge Clinical Impression: Aseptic meningitis, Hypertension, Physical deconditioning Patient Disposition: Still a Patient Prescriptions: No [facility] doxycycline hyclate 100 mg Tablet 100 mg PO Q12H 10 Days Qty: 20 0RF amlodipine 5 mg Tablet 10 mg PO DAILY 30 Days Qty: 60 0RF Protocol: Hold for SBP< HOLD for SBP < : 90
[2022-03-02 18:32] VITALS: BP 162/75; PULSE 78; RESP 12; O2SAT 96
--- NOTE | 2022-03-02 20:39 | PHA.MEDREC ---
Pharmacy Consult ? Medication Reconciliation Pharmacy has completed the medication reconciliation.
--- NOTE | 2022-03-02 20:48 | MHC.CM.ED ---
Addendum entered by Jenelle Carlson 03/02/22 21:04: Medical record reviewed. Pt medicare right were reviewed with pt by CM and pt chose to d/c to home anyway. Pt had refused to go to a SNF secondary to having dogs to care for. Unsure if pt will be agreeable to STR at this time. Original Note: Medical work-up pending. CM was asked to see pt, as he was just d/c from [facility] at noon today. Pt was at [facility] [place] from 02/27-03/02 for aseptic meningitis. Pt stated he was not ready for discharge, but went home anyway. Pt is homeless and is living in his van. CM took 30 minutes to complete, as pt was slow to answer questions and seemed to have difficulty finding words. Pt tells CM he feels unfocused,slow, cannot write his name and has difficulty answering questions. Pt states he cannot drive currently since he became ill 3 weeks ago, was driving erratic and was having visual problems. Pt tells CM that his van is parked at a storage area and he has use of electricity there. States his partner of 34 years in 2017 and he has been living in his van since then. Has no family or children. 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 Denies current drug or alcohol use. Denies mental health concerns. Pt is unkempt. States he hasn't eaten since he left [facility] [place] [facility] today. PCP is Kayce Dennis. Pt cannot tell CM when he last saw her. Pt declines HCP. Pt tells CM he received 2 Pfizer vaccinations. PT saw pt on 03/01 and recommended home PT. Pt is homeless, so outpatient PT was recommended. Pt has no way to get to outpatient PT. Pt has his discharge folder with him, and has not filled his prescriptions. Pt feels he is too weak to be at home in his van and needs further hospitalizations. Unsure at this time regarding pt disposition. CM will follow if consulted. Dr. Deluna aware of above conversation.
[2022-03-02 21:26] LABS: MANUAL DIFF FLAG NO
[2022-03-02 21:29] LABS: Basophils Absolute Auto 0.1 X10*3/uL (0.0-0.2); Basophils Percent Auto 0.4 % (0-2); Eosinophils Absolute Auto 0.1 X10*3/uL (0.0-0.4); Eosinophils Percent Auto 0.8 % (0-4); Hematocrit 39.3 % (42.0-52.0); Hemoglobin 13.8 g/dl (14.0-18.0); Imm Gran Abs Auto 0.05 X10*3/uL (0.00-0.03); Imm Gran Pct Auto 0.4 % (0.0-0.4); Lymphocytes Absolute Auto 1.7 X10*3/uL (1.2-4.9); Lymphocytes Percent Auto 14.3 % (20-40); Mean Corpuscular HGB Conc 35.1 g/dl (31.0-36.0); Mean Corpuscular Hemoglobin 30.8 pg (27.0-33.0); Mean Corpuscular Volume 87.7 fL (80.0-98.0); Mean Platelet Volume 9.5 fL (9.4-12.4); Monocytes Absolute Auto 0.9 X10*3/uL (0.1-1.2); Monocytes Percent Auto 7.9 % (2-11); Neutrophils Absolute Auto 9.1 x10*3/uL (2.0-8.3); Neutrophils Percent Auto 76.2 % (45-73); Platelet Count 305 X10*3/uL (160-400); Red Blood Count 4.48 X10*6/uL (4.60-5.80); Red Cell Distribution Width 12.2 % (11.0-16.0); White Blood Count 11.9 X10*3/uL (4.8-10.8)
[2022-03-02 21:41] LABS: COVID-19 Test Negative (Negative)
[2022-03-02 21:45] LABS: Alanine Aminotransferase 19 U/L (0-40); Albumin Level 3.8 g/dL (3.5-5.0); Alkaline Phosphatase 67 U/L (39-117); Anion Gap 13 (12-20); Aspartate Amino Transferase 26 U/L (5-37); Bilirubin Total 0.9 mg/dL (0.0-1.0); Blood Urea Nitrogen 9 mg/dL (9-16); Calcium 9.7 mg/dL (8.4-10.2); Carbon Dioxide 29 mmol/L (22-29); Chloride 100 mmol/L (96-108); Creatinine Clr Calc Pharmacy 92.5; Estimated Glomerular Filt Rate > 60; Glucose Random 116 mg/dL (60-115); Potassium 3.7 mmol/L (3.3-5.1); Sodium 138 mmol/L (135-145); Total Protein 6.7 g/dL (6.5-8.0)
--- NOTE | 2022-03-02 22:13 | MHC.CM.ED ---
Pt medically cleared. CM consulted. PT pending. CM attempted to meet with patient to discuss pt not being admitted and staying overnight for PT consult, but patient sleeping soundly. Did not respond to name. Dr. Deluna spoke with patient earlier and pt is aware that if PT recommends STR, he will go. Pt is too weak to drive to PT, cannot drive presently and cannot have home PT as he lives in his van. PT pending. Referrals placed locally. Will review options when pt wakes. CM to follow for d/c needs.
[2022-03-03] VITALS: BP 155/84; PULSE 70; RESP 16; TEMP 36.7; O2SAT 95
[2022-03-03 03:13] LABS: Appearance Urine Cloudy; Color Urine Yellow; Glucose Urine UA Negative (Negative); Leukocyte Esterase Urine Negative (Negative); Nitrite Urine Negative (Negative); PH 7.5 (5.0-9.0); Specific Gravity - Urine 1.015 (1.005-1.025); Urine Blood Negative (Negative); Urine Ketones Negative (Negative); Urine Protein Negative (Neg-Trace)
[2022-03-03 04:00] VITALS: BP 141/76; PULSE 61; RESP 15; TEMP 36.9; O2SAT 94
--- NOTE | 2022-03-03 05:04 | PC.NURSE ---
Assumed care at 0330. Patient noted to have infiltrated IV in left AC, IV bleeding as well. IV removed. New #20g inserted left AC. Patient resting, denies pain, no bleeding noted. Patient repositioned & linens changed.
[2022-03-03 06:00] VITALS: BP 144/77; PULSE 50; RESP 14; TEMP 36.7; O2SAT 94
[2022-03-03 07:28] VITALS: BP 144/77; PULSE 50; O2SAT 94
[2022-03-03] MEDS: amLODIPine Besylate 10 MG TABLET PO (08:50)
[2022-03-03 08:53] VITALS: BP 148/99; PULSE 56; RESP 17; O2SAT 96
--- NOTE | 2022-03-03 10:45 | MHC.CM.ED ---
Addendum entered by Grisel Magdaleno 03/03/22 11:46: [facility] does not have a male bed today. They can offer a private room at [place] and can transfer to [place] when bed is available. Patient is agreeable. [facility] booked for 2pm. Original Note: Patient remains in ER. Physical therapy eval completed.Short term rehab is recommded. HCP completed with patient. Original given to patient. Copy placed in chart. [facility], [facility] and [facility] are able to offer a bed. Per patient, [facility] is first choice. Continue to monitor for d/c needs.
--- NOTE | 2022-03-03 14:02 | PC.NURSE ---
REPORT TO [facility]
== END 2022-03-03 15:06 | disposition home or self-care (01) ==
PROVIDERS: Emergency Provider Student in an Organized Health Care Education/Training Program
DX: G03.0 Nonpyogenic meningitis (principal); R53.81 Other malaise; I10 Essential (primary) hypertension; Z20.822 Contact with and (suspected) exposure to COVID-19; Z87.891 Personal history of nicotine dependence; Z79.899 Other long term (current) drug therapy
CPT/HCPCS: 36415; 71046; 80053; 81003; 85025; 87635; 97162; 99284

== ENCOUNTER 2022-04-28 12:04 | Emergency (ER) | payer MEDICARE, MEDICAID, SELFPAY ==
--- NOTE | ~2022-04-28 | CT_ITS ---
EXAMINATION: CT angio head neck CLINICAL INFORMATION: Left eye central vision blurriness. COMPARISON: CT head 02/27/2022. TECHNIQUE: Medical Record Consultant images were obtained. A CT angiogram of the head and neck was performed in the arterial phase after the intravenous administration of 70 mL Omnipaque 350. Pre and delayed postcontrast images of the head were also obtained. MIP reconstructions were generated in multiple orientations at the acquisition workstation. Multiple three-dimensional surface rendered images and maximum intensity projection images were generated on a dedicated 3-D lab workstation. Arterial stenoses are measured in accordance with NASCET criteria or similar method if applicable. This CT examination was performed using dose optimization techniques as appropriate, including one or more of the following: Automated exposure control, iterative reconstruction, and adjustment of technique factors (mA and/or kVp) according to patient size (this includes techniques or standardized protocols for targeted exams where dose is matched to indication/reason for exam). Fleischner Society criteria for the followup of incidental pulmonary nodules was implemented if appropriate. Total exam dose-length product 2316 mGy-cm FINDINGS: Head: There is no acute intracranial hemorrhage. Delayed postcontrast images reveal no abnormal intracranial mass or enhancement. No intracranial mass effect or midline shift. Lateral and third ventricles are normal. No hydrocephalus. Ng-white matter differentiation is grossly preserved and there is no evidence of acute territorial infarct. The calvarium and skull base are intact. Mastoid air cells and middle ear cavities are well-aerated. CT angiogram neck: Scattered atheromatous calcification involves the aortic arch apex. Origins of the major aortic branches are widely patent. There is an eccentric weblike contour abnormality along the posterior and medial wall of the left carotid bifurcation that most likely represents intimal fibromuscular dysplasia. No stenosis of the extra cranial internal carotid arteries. The cervical segments of the vertebral arteries as well as their origins are patent. CT angiogram head: Intracranial internal carotid arteries are normal. The intradural vertebral artery segments and basilar artery are patent. Anterior, middle, and posterior cerebral complexes are normal. No intracranial large vessel occlusion. Other: Soft tissues of the neck including the thyroid gland are normal. Grossly no pathologically enlarged cervical lymph nodes. Visualized lung apices are clear. There is no acute osseous finding. Specifically no worrisome lytic or blastic osseous lesion. Grossly no evidence of spinal canal compromise. CT/CT angio head neck IMPRESSION: There is an eccentric weblike contour abnormality at the origin of the left internal carotid artery resulting in no stenosis of the vessel. 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 Otherwise unremarkable CT angiogram of the head and neck in that there is no stenosis of the cervical carotid or vertebral arteries. No intracranial large vessel occlusion. There is no evidence of acute territorial infarct or hemorrhage. No abnormal intracranial mass or enhancement.
[2022-04-28 12:15] VITALS: BP 143/84; PULSE 65; RESP 18; TEMP 36.3; O2SAT 96; BMI 28.5
--- NOTE | 2022-04-28 12:16 | ED_ITS ---
HPI - General Adult General Chief complaint: Neuro Symptoms/Deficit <OZZY Donovan - Last Filed: 05/03/22 15:26> Stated complaint: Blurred Vision L Eye <OZZY Donovan - Last Filed: 05/03/22 15:26> Time Seen by Provider: 04/28/22 12:34 <OZZY Donovan - Last Filed: 05/03/22 15:26> Source: patient and old records reviewed <Fan Harrell MD - Last Filed: 04/28/22 15:15> History of Present Illness HPI narrative: Patient with left eye vision deficit. He noticed it yesterday when he started reading that there was a blotchy area. He states his right eye is normal. His left eye has been getting worse since yesterday. He describes the vision deficit as blackness in the medial vision field. No headache or eye pain. No history of similar issues He does have a recent history significant for hospitalization for aseptic meningitis. He states he has recovered from that without incident. No current neck pain. 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 He denies any weakness numbness or paresthesias in his extremities. He denies seeing any flashes prior to the start of this. <Fan Harrell MD - Last Filed: 04/28/22 15:15> Related Data Home medications: Previous Rx's Medication Instructions Recorded amlodipine 5 mg tablet 10 mg PO DAILY 30 days #60 tabs 03/02/22 doxycycline hyclate 100 mg tablet 100 mg PO Q12H 10 days #20 tabs 03/02/22 <OZZY Donovan - Last Filed: 05/03/22 15:26> Allergies/adverse reactions: Allergies Allergy/AdvReac Type Severity Reaction Status Date / Time No Known Allergies Allergy Verified 04/28/22 12:17 <OZZY Donovan - Last Filed: 05/03/22 15:26> Review of Systems Constitutional: Comments: No fevers or chills <Fan Harrell MD - Last Filed: 04/28/22 15:15> Eyes: Comments: Vision deficit as described without pain <Fan Harrell MD - Last Filed: 04/28/22 15:15> Cardiovascular: Comments: No chest pain or palpitations <Fan Harrell MD - Last Filed: 04/28/22 15:15> Respiratory: Comments: Clear and equal bilaterally <Fan Harrell MD - Last Filed: 04/28/22 15:15> Gastrointestinal: Comments: No abdominal pain or nausea vomiting <Fan Harrell MD - Last Filed: 04/28/22 15:15> Musculoskeletal: Comments: No extremity complaints <Fan Harrell MD - Last Filed: 04/28/22 15:15> Integumentary/Breasts: Comments: No rash <Fan Harrell MD - Last Filed: 04/28/22 15:15> Neurologic: Comments: No weakness numbness or paresthesias <Fan Harrell MD - Last Filed: 04/28/22 15:15> [facility] Social History Social History: Social History Household Members: None Housing: Homeless Alcohol intake: former Patient Tobacco Use Status: Former Tobacco user Advance Directives: No Advance Directives Information Provided: Yes service: No Current occupational status: retired <OZZY Donovan - Last Filed: 05/03/22 15:26> Physical Exam ED Vital Signs: Vital Signs - 24 hr 04/28/22 12:15 04/28/22 14:27 Temperature 97.4 F 97.3 F Pulse Rate 65 53 Respiratory Rate 18 18 Blood Pressure 143/84 H 176/89 H Pulse Oximetry 96 98 Oxygen Delivery Method Room Air Room Air BMI result Body Mass Index 28.5 <OZZY Donovan - Last Filed: 05/03/22 15:26> Vital Signs - 24 hr 04/28/22 12:15 04/28/22 14:27 Temperature 97.4 F 97.3 F Pulse Rate 65 53 Respiratory Rate 18 18 Blood Pressure 143/84 H 176/89 H Pulse Oximetry 96 98 Oxygen Delivery Method Room Air Room Air BMI result Body Mass Index 28.5 <Fan Harrell MD - Last Filed: 04/28/22 15:15> Const Other: Awake and alert in no acute distress <Fan Harrell MD - Last Filed: 04/28/22 15:15> HENMT Other: Normocephalic atraumatic <Fan Harrell MD - Last Filed: 04/28/22 15:15> Eyes Other: Bilateral external exam is normal without conjunctiva will irritation. Pupils are equal round and reactive to light. Will need to place in a room for funduscopic exam, ophthalmic scope. Visual lamas show right eye normal. Left eye with medial visual field deficit approximately 50% of his visual field. Intact laterally as well as inferiorly and superiorly <Fan Harrell MD - Last Filed: 04/28/22 15:15> Neck Other: No meningismus <Fan Harrell MD - Last Filed: 04/28/22 15:15> Resp Other: Clear and equal bilaterally <Fan Harrell MD - Last Filed: 04/28/22 15:15> Cardio Other: Regular rate and rhythm without murmurs rubs or gallops <Fan Harrell MD - Last Filed: 04/28/22 15:15> GI Other: Soft nontender nondistended <Fan Harrell MD - Last Filed: 04/28/22 15:15> Skin Other: Warm pink and dry without rash <Fan Harrell MD - Last Filed: 04/28/22 15:15> Neuro Other: Nonfocal neuro exam. No aphasia. No facial droop. Extremities move equally x4 without difficulty. Vision changes as described above <Fan Harrell MD - Last Filed: 04/28/22 15:15> Extrem Other: Atraumatic x4 <Fan Harrell MD - Last Filed: 04/28/22 15:15> Course Course Course Narrative: TONI. Patient stating blurry vision in left eye. patient states left central vision has been slowy becoming blurry since yesterday 3:00pm. No neuro deficits. On Visual test central field patient states blurry in left eye only. Peripherheal vision intact and normal in both eyes. Vital signs stable. Case discussed with Dr. Ronquillo who recommends patient be brought in immeidatley. Labs ordered. HE recommend CT head and neck angio but no need to call it as as stroke. he states patient may have retinal occlussion. <OZZY Donovan - Last Filed: 05/03/22 15:26> TONI. Patient stating blurry vision in left eye. patient states left central vision has been slowy becoming blurry since yesterday 3:00pm. No neuro deficits. On Visual test central field patient states blurry in left eye only. Peripherheal vision intact and normal in both eyes. Vital signs stable. Case discussed with Dr. Ronquillo who recommends patient be brought in immeidatley. Labs ordered. HE recommend CT head and neck angio but no need to call it as as stroke. he states patient may have retinal occlussion. Visual field defect as described above. Await remainder of workup 15:12. Fluorescene exam is negative. Ocular pressure is 10 by Markell-Pen. Eye exam is otherwise unremarkable with funduscopic exam normal. Question of darker area such as hemorrhage inferolateral left retina. Retinal detachment possible. Lab work and CT scan show no evidence of acute changes. 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 Case discussed with Ophthalmology Dr. aCrr. He is able to see patient in the office now Will discharge for immediate follow-up with ophthalmology <Fan Harrell MD - Last Filed: 04/28/22 15:15> Medications Administered Discontinued Medications Generic Name Dose Route Start Last Admin Trade Name Freq PRN Reason Stop Dose Admin Fluorescein Sodium 1 strip 04/28/22 13:03 04/28/22 14:37 Fluorescein Sodium Strip EYE-LEFT 04/28/22 13:04 1 strip ONCE ONE Administration Sodium Chloride 1,000 mls @ 999 mls/hr 04/28/22 12:25 04/28/22 14:21 Ns IV 04/28/22 13:25 Infused .Q1H1M STA Infusion Iohexol 100 ml 04/28/22 14:21 04/28/22 14:22 Iohexol 350 Mg/Ml 100 Ml Infus..Btl IV 04/28/22 14:22 70 ml ONCE ONE Administration Tetracaine HCl 3 drop 04/28/22 13:06 04/28/22 14:37 Tetracaine Hcl/Pf 0.5% Oph Coty 4 Ml Drops EYE-LEFT 04/28/22 13:07 3 drop ONCE ONE Administration <OZZY Donovan - Last Filed: 05/03/22 15:26> Medications Administered Discontinued Medications Generic Name Dose Route Start Last Admin Trade Name Freq PRN Reason Stop Dose Admin Fluorescein Sodium 1 strip 04/28/22 13:03 04/28/22 14:37 Fluorescein Sodium Strip EYE-LEFT 04/28/22 13:04 1 strip ONCE ONE Administration Sodium Chloride 1,000 mls @ 999 mls/hr 04/28/22 12:25 04/28/22 14:21 Ns IV 04/28/22 13:25 Infused .Q1H1M STA Infusion Iohexol 100 ml 04/28/22 14:21 04/28/22 14:22 Iohexol 350 Mg/Ml 100 Ml Infus..Btl IV 04/28/22 14:22 70 ml ONCE ONE Administration Tetracaine HCl 3 drop 04/28/22 13:06 04/28/22 14:37 Tetracaine Hcl/Pf 0.5% Oph Coty 4 Ml Drops EYE-LEFT 04/28/22 13:07 3 drop ONCE ONE Administration <Fan Harrell MD - Last Filed: 04/28/22 15:15> Medical Decision Making Lab Data Result diagrams: : 04/28/22 12:31 04/28/22 12:31 <OZZY Donovan - Last Filed: 05/03/22 15:26> Labs: Lab Results 04/28/22 04/28/22 04/28/22 Range/Units 12:31 12:31 12:31 WBC 9.1 (4.8-10.8) X10*3/uL RBC 5.03 (4.60-5.80) X10*6/uL Hgb 15.7 (14.0-18.0) g/dl Hct 45.8 (42.0-52.0) % MCV 91.1 (80.0-98.0) fL MCH 31.2 (27.0-33.0) pg MCHC 34.3 (31.0-36.0) g/dl RDW 13.1 (11.0-16.0) % Plt Count 278 (160-400) X10*3/uL MPV 9.3 L (9.4-12.4) fL Immature Gran % (Auto) 0.2 (0.0-0.4) % Neut % (Auto) 60.0 (45-73) % Lymph % (Auto) 24.9 (20-40) % Sumter % (Auto) 9.8 (2-11) % Eos % (Auto) 4.2 H (0-4) % Baso % (Auto) 0.9 (0-2) % Lymph # (Auto) 2.3 (1.2-4.9) X10*3/uL [place] # (Auto) 0.9 (0.1-1.2) X10*3/uL Eos # (Auto) 0.4 (0.0-0.4) X10*3/uL Baso # (Auto) 0.1 (0.0-0.2) X10*3/uL Abs Immat Gran (auto) 0.02 (0.00-0.03) X10*3/uL Absolute Neuts (auto) 5.5 (2.0-8.3) x10*3/uL Absolute Nucleated RBC 0.000 (0.0-0.012) X10*3/uL Nucleated RBC % (auto) 0.0 (0.0-0.2) /100WBC ESR (0-15) MM/HR PT 11.6 (10.0-13.1) SEC INR 1.0 (0.9-1.1) APTT 52.4 H (26.0-36.4) SEC Sodium 141 (135-145) mmol/L Potassium 4.2 (3.3-5.1) mmol/L Chloride 107 (96-108) mmol/L Carbon Dioxide 24 (22-29) mmol/L Anion Gap 14 (12-20) BUN 14 (9-16) mg/dL Creatinine 0.76 (0.5-1.4) mg/dL Estim Creat Clear Calc 92.6 Estimated GFR > 60 Random Glucose 116 H (60-115) mg/dL Calcium 9.8 (8.4-10.2) mg/dL Total Bilirubin 1.6 H (0.0-1.0) mg/dL AST 20 (5-37) U/L ALT 9 (0-40) U/L Alkaline Phosphatase 98 (39-117) U/L Troponin I High Sens (<3.5-35.0) ng/L Total Protein 7.7 (6.5-8.0) g/dL Albumin 4.3 (3.5-5.0) g/dL 04/28/22 04/28/22 Range/Units 12:31 12:31 WBC (4.8-10.8) X10*3/uL RBC (4.60-5.80) X10*6/uL Hgb (14.0-18.0) g/dl Hct (42.0-52.0) % MCV (80.0-98.0) fL MCH (27.0-33.0) pg MCHC (31.0-36.0) g/dl RDW (11.0-16.0) % Plt Count (160-400) X10*3/uL MPV (9.4-12.4) fL Immature Gran % (Auto) (0.0-0.4) % Neut % (Auto) (45-73) % Lymph % (Auto) (20-40) % Sumter % (Auto) (2-11) % Eos % (Auto) (0-4) % Baso % (Auto) (0-2) % Lymph # (Auto) (1.2-4.9) X10*3/uL Sumter # (Auto) (0.1-1.2) X10*3/uL Eos # (Auto) (0.0-0.4) X10*3/uL Baso # (Auto) (0.0-0.2) X10*3/uL Abs Immat Gran (auto) (0.00-0.03) X10*3/uL Absolute Neuts (auto) (2.0-8.3) x10*3/uL Absolute Nucleated RBC (0.0-0.012) X10*3/uL Nucleated RBC % (auto) (0.0-0.2) /100WBC ESR 18 H (0-15) MM/HR PT (10.0-13.1) SEC INR (0.9-1.1) APTT (26.0-36.4) SEC Sodium (135-145) mmol/L Potassium (3.3-5.1) mmol/L Chloride (96-108) mmol/L Carbon Dioxide (22-29) mmol/L Anion Gap (12-20) BUN (9-16) mg/dL Creatinine (0.5-1.4) mg/dL Estim Creat Clear Calc Estimated GFR Random Glucose (60-115) mg/dL Calcium (8.4-10.2) mg/dL Total Bilirubin (0.0-1.0) mg/dL AST (5-37) U/L ALT (0-40) U/L Alkaline Phosphatase (39-117) U/L Troponin I High Sens 3.7 (<3.5-35.0) ng/L Total Protein (6.5-8.0) g/dL Albumin (3.5-5.0) g/dL <OZZY Donovan - Last Filed: 05/03/22 15:26> Lab Results 04/28/22 04/28/22 04/28/22 Range/Units 12:31 12:31 12:31 WBC 9.1 (4.8-10.8) X10*3/uL RBC 5.03 (4.60-5.80) X10*6/uL Hgb 15.7 (14.0-18.0) g/dl Hct 45.8 (42.0-52.0) % MCV 91.1 (80.0-98.0) fL MCH 31.2 (27.0-33.0) pg MCHC 34.3 (31.0-36.0) g/dl RDW 13.1 (11.0-16.0) % Plt Count 278 (160-400) X10*3/uL MPV 9.3 L (9.4-12.4) fL Immature Gran % (Auto) 0.2 (0.0-0.4) % Neut % (Auto) 60.0 (45-73) % Lymph % (Auto) 24.9 (20-40) % Sumter % (Auto) 9.8 (2-11) % Eos % (Auto) 4.2 H (0-4) % Baso % (Auto) 0.9 (0-2) % Lymph # (Auto) 2.3 (1.2-4.9) X10*3/uL Sumter # (Auto) 0.9 (0.1-1.2) X10*3/uL Eos # (Auto) 0.4 (0.0-0.4) X10*3/uL Baso # (Auto) 0.1 (0.0-0.2) X10*3/uL Abs Immat Gran (auto) 0.02 (0.00-0.03) X10*3/uL Absolute Neuts (auto) 5.5 (2.0-8.3) x10*3/uL Absolute Nucleated RBC 0.000 (0.0-0.012) X10*3/uL Nucleated RBC % (auto) 0.0 (0.0-0.2) /100WBC ESR (0-15) MM/HR PT 11.6 (10.0-13.1) SEC INR 1.0 (0.9-1.1) APTT 52.4 H (26.0-36.4) SEC Sodium 141 (135-145) mmol/L Potassium 4.2 (3.3-5.1) mmol/L Chloride 107 (96-108) mmol/L Carbon Dioxide 24 (22-29) mmol/L Anion Gap 14 (12-20) BUN 14 (9-16) mg/dL Creatinine 0.76 (0.5-1.4) mg/dL Estim Creat Clear Calc 92.6 Estimated GFR > 60 Random Glucose 116 H (60-115) mg/dL Calcium 9.8 (8.4-10.2) mg/dL Total Bilirubin 1.6 H (0.0-1.0) mg/dL AST 20 (5-37) U/L ALT 9 (0-40) U/L Alkaline Phosphatase 98 (39-117) U/L Troponin I High Sens (<3.5-35.0) ng/L Total Protein 7.7 (6.5-8.0) g/dL Albumin 4.3 (3.5-5.0) g/dL 04/28/22 04/28/22 Range/Units 12:31 12:31 WBC (4.8-10.8) X10*3/uL RBC (4.60-5.80) X10*6/uL Hgb (14.0-18.0) g/dl Hct (42.0-52.0) % MCV (80.0-98.0) fL MCH (27.0-33.0) pg MCHC (31.0-36.0) g/dl RDW (11.0-16.0) % Plt Count (160-400) X10*3/uL MPV (9.4-12.4) fL Immature Gran % (Auto) (0.0-0.4) % Neut % (Auto) (45-73) % Lymph % (Auto) (20-40) % [place] % (Auto) (2-11) % Eos % (Auto) (0-4) % Baso % (Auto) (0-2) % Lymph # (Auto) (1.2-4.9) X10*3/uL [place] # (Auto) (0.1-1.2) X10*3/uL Eos # (Auto) (0.0-0.4) X10*3/uL Baso # (Auto) (0.0-0.2) X10*3/uL Abs Immat Gran (auto) (0.00-0.03) X10*3/uL Absolute Neuts (auto) (2.0-8.3) x10*3/uL Absolute Nucleated RBC (0.0-0.012) X10*3/uL Nucleated RBC % (auto) (0.0-0.2) /100WBC ESR 18 H (0-15) MM/HR PT (10.0-13.1) SEC INR (0.9-1.1) APTT (26.0-36.4) SEC Sodium (135-145) mmol/L Potassium (3.3-5.1) mmol/L Chloride (96-108) mmol/L Carbon Dioxide (22-29) mmol/L Anion Gap (12-20) BUN (9-16) mg/dL Creatinine (0.5-1.4) mg/dL Estim Creat Clear Calc Estimated GFR Random Glucose (60-115) mg/dL Calcium (8.4-10.2) mg/dL Total Bilirubin (0.0-1.0) mg/dL AST (5-37) U/L ALT (0-40) U/L Alkaline Phosphatase (39-117) U/L Troponin I High Sens 3.7 (<3.5-35.0) ng/L Total Protein (6.5-8.0) g/dL Albumin (3.5-5.0) g/dL <Fan Harrell MD - Last Filed: 04/28/22 15:15> Discharge Plan Discharge Clinical Impression: Vision decreased <OZZY Donovan - Last Filed: 05/03/22 15:26> Patient Disposition: Home, Self-Care <OZZY Donovan - Last Filed: 05/03/22 15:26> Instructions: Blurred Vision (ED) <OZZY Donovan - Last Filed: 05/03/22 15:26> Additional Instructions: Go to Dr. Carr office right now <OZZY Donovan - Last Filed: 05/03/22 15:26> Prescriptions: No Action doxycycline hyclate 100 mg Tablet 100 mg PO Q12H 10 Days Qty: 20 0RF amlodipine 5 mg Tablet 10 mg PO DAILY 30 Days Qty: 60 0RF Protocol: Hold for SBP< HOLD for SBP < : 90 <OZZY Donovan - Last Filed: 05/03/22 15:26> Referrals: Rocky Carr [Physician] - <OZZY Donovan - Last Filed: 05/03/22 15:26> Interventions: ED Discharge Assessment Last Done: 04/28/22 15:42 <OZZY Donovan - Last Filed: 05/03/22 15:26> Discharge Date/Time: 04/28/22 15:42 <OZZY Donovan - Last Filed: 05/03/22 15:26>
--- NOTE | 2022-04-28 12:23 | ECG_ITS ---
Test Reason : L EYE BLURRINESS Blood Pressure : / mmHG Vent. Rate : 052 BPM Atrial Rate : 052 BPM P-R Int : 232 ms QRS Dur : 096 ms QT Int : 448 ms P-R-T Axes : 021 -24 007 degrees QTc Int : 416 ms Sinus bradycardia with 1st degree A-V block Minimal voltage criteria for LVH, may be normal variant ( R in aVL ) Borderline ECG When compared with ECG of 27-FEB-2022 11:28, Sinus Arrhythmia is no longer Present Referred By: Rob Saez Electronically Signed By:NOLVIA GUZMÁN MD
[2022-04-28 12:40] LABS: MANUAL DIFF FLAG NO
[2022-04-28 12:41] LABS: Basophils Absolute Auto 0.1 X10*3/uL (0.0-0.2); Basophils Percent Auto 0.9 % (0-2); Eosinophils Absolute Auto 0.4 X10*3/uL (0.0-0.4); Eosinophils Percent Auto 4.2 % (0-4); Hematocrit 45.8 % (42.0-52.0); Hemoglobin 15.7 g/dl (14.0-18.0); Imm Gran Abs Auto 0.02 X10*3/uL (0.00-0.03); Imm Gran Pct Auto 0.2 % (0.0-0.4); Lymphocytes Absolute Auto 2.3 X10*3/uL (1.2-4.9); Lymphocytes Percent Auto 24.9 % (20-40); Mean Corpuscular HGB Conc 34.3 g/dl (31.0-36.0); Mean Corpuscular Hemoglobin 31.2 pg (27.0-33.0); Mean Corpuscular Volume 91.1 fL (80.0-98.0); Mean Platelet Volume 9.3 fL (9.4-12.4); Monocytes Absolute Auto 0.9 X10*3/uL (0.1-1.2); Monocytes Percent Auto 9.8 % (2-11); Neutrophils Absolute Auto 5.5 x10*3/uL (2.0-8.3); Platelet Count 278 X10*3/uL (160-400); Red Blood Count 5.03 X10*6/uL (4.60-5.80); Red Cell Distribution Width 13.1 % (11.0-16.0); White Blood Count 9.1 X10*3/uL (4.8-10.8)
[2022-04-28 12:54] LABS: Prothrombin Time 11.6 SEC (10.0-13.1)
[2022-04-28 12:57] LABS: Partial Thromboplastin Time 52.4 SEC (26.0-36.4)
[2022-04-28 13:03] LABS: Alanine Aminotransferase 9 U/L (0-40); Albumin Level 4.3 g/dL (3.5-5.0); Alkaline Phosphatase 98 U/L (39-117); Anion Gap 14 (12-20); Aspartate Amino Transferase 20 U/L (5-37); Bilirubin Total 1.6 mg/dL (0.0-1.0); Blood Urea Nitrogen 14 mg/dL (9-16); Calcium 9.8 mg/dL (8.4-10.2); Carbon Dioxide 24 mmol/L (22-29); Chloride 107 mmol/L (96-108); Creatinine Clr Calc Pharmacy 92.6; Estimated Glomerular Filt Rate > 60; Glucose Random 116 mg/dL (60-115); Potassium 4.2 mmol/L (3.3-5.1); Sodium 141 mmol/L (135-145); Total Protein 7.7 g/dL (6.5-8.0)
[2022-04-28 13:07] LABS: Troponin-I High Sensitivity 3.7 ng/L (<3.5-35.0)
[2022-04-28] MEDS: 0.9 % Sodium Chloride 1,000 ML 999 ML IV (13:09)
[2022-04-28 14:04] LABS: Erythrocyte Sedimentation Rate 18 MM/HR (0-15)
[2022-04-28] MEDS: iohexoL 350 MG/ML 100 ML INFUS..BTL IV (14:22)
[2022-04-28 14:27] VITALS: BP 176/89; PULSE 53; RESP 18; TEMP 36.3; O2SAT 98
[2022-04-28] MEDS: Tetracaine HCl/PF 0.5% Oph Sol 4 ML DROPS 3 DROP EYE-LEFT (14:37)
[2022-04-28] MEDS: Fluorescein Sodium STRIP 1 STRIP EYE-LEFT (14:37)
== END 2022-04-28 15:42 | disposition home or self-care (01) ==
PROVIDERS: Physician Assistant; Emergency Provider Emergency Medicine; PCP Family Medicine
DX: H53.8 Other visual disturbances (principal); R51.9 Headache, unspecified; R00.1 Bradycardia, unspecified; M54.2 Cervicalgia; Z87.891 Personal history of nicotine dependence; Z79.899 Other long term (current) drug therapy
CPT/HCPCS: 36415; 70496; 70498; 80053; 84484; 85025; 85610; 85652; 85730; 93005; 96360; 99284; Q9967

== ENCOUNTER 2022-08-02 09:16 | Outpatient (REF) | payer MEDICARE, MEDICAID, SELFPAY ==
[2022-08-02 09:36] LABS: MANUAL DIFF FLAG NO
[2022-08-02 10:50] LABS: Basophils Absolute Auto 0.1 X10*3/uL (0.0-0.2); Eosinophils Absolute Auto 0.4 X10*3/uL (0.0-0.4); Eosinophils Percent Auto 3.9 % (0-4); Hematocrit 45.1 % (42.0-52.0); Hemoglobin 15.4 g/dl (14.0-18.0); Imm Gran Abs Auto 0.03 X10*3/uL (0.00-0.03); Imm Gran Pct Auto 0.3 % (0.0-0.4); Lymphocytes Absolute Auto 2.5 X10*3/uL (1.2-4.9); Lymphocytes Percent Auto 26.4 % (20-40); Mean Corpuscular HGB Conc 34.1 g/dl (31.0-36.0); Mean Corpuscular Hemoglobin 31.4 pg (27.0-33.0); Mean Platelet Volume 10.3 fL (9.4-12.4); Monocytes Absolute Auto 0.8 X10*3/uL (0.1-1.2); Monocytes Percent Auto 8.7 % (2-11); Neutrophils Absolute Auto 5.7 x10*3/uL (2.0-8.3); Neutrophils Percent Auto 59.7 % (45-73); Platelet Count 243 X10*3/uL (160-400); Red Cell Distribution Width 12.3 % (11.0-16.0); White Blood Count 9.5 X10*3/uL (4.8-10.8)
[2022-08-02 11:17] LABS: Alanine Aminotransferase 12 U/L (0-40); Albumin Level 4.3 g/dL (3.5-5.0); Alkaline Phosphatase 99 U/L (39-117); Anion Gap 15 (12-20); Aspartate Amino Transferase 21 U/L (5-37); Bilirubin Total 1.6 mg/dL (0.0-1.0); Blood Urea Nitrogen 27 mg/dL (9-16); Calcium 9.3 mg/dL (8.4-10.2); Carbon Dioxide 23 mmol/L (22-29); Chloride 108 mmol/L (96-108); Estimated Glomerular Filt Rate > 60; Glucose Random 82 mg/dL (60-115); Potassium 4.6 mmol/L (3.3-5.1); Sodium 141 mmol/L (135-145); Total Protein 7.3 g/dL (6.5-8.0)
[2022-08-03 10:19] LABS: Free Prostate Spec Ag 0.9 ng/mL; Percent Free Prostate Spec Ag 29 % (calc) (>25); Prostate Specific Ag Total 3.1 ng/mL (< OR = 4.0)
== END 2022-08-02 09:17 | disposition home or self-care (01) ==
LOC: HO.LAB 09:16
PROVIDERS: PCP Family Medicine; Visit Provider Family Medicine
DX: Z12.5 Encounter for screening for malignant neoplasm of prostate (principal); G04.90 Encephalitis and encephalomyelitis, unspecified
CPT/HCPCS: 36415; 80053; 84154; 85025

== ENCOUNTER 2022-09-02 14:36 | Emergency (ER) | payer MEDICARE, MEDICAID, SELFPAY ==
--- NOTE | ~2022-09-02 | XR_ITS ---
EXAMINATION: XR CHEST CLINICAL INFORMATION: Altered mental status COMPARISON: Chest x-ray 03/02/2022 TECHNIQUE: Frontal view of the chest was obtained. FINDINGS: Thoracic aorta is tortuous there are calcifications of aortic arch. Heart size is normal. No acute abnormality. No pulmonary vascular congestion. Lungs are normally aerated. No pleural effusion. No pneumothorax. No acute osseous abnormality. Compared to prior chest x-ray no substantial change. XR/XR chest 1V IMPRESSION: No acute abnormality of chest.
--- NOTE | ~2022-09-02 | CT_ITS ---
EXAMINATION: CT head/brain wo IV con CLINICAL INFORMATION: Confusion, off balance R/O stroke, mass effect COMPARISON: CT head 02/27/2022 04/28/2022 TECHNIQUE: Contiguous axial imaging was performed from the skull base to vertex without intravenous contrast. Sagittal and coronal reformatted images were obtained. This CT examination was performed using dose optimization techniques as appropriate, variously including the following: * Automated exposure control * Adjustment of mA and/or kV according to patient size (this includes techniques or standardized protocols for targeted exams where dose is matched to indication/reason for exam; i.e. extremities or head) Use of iterative reconstruction technique DLP: 670.49 mGy-cm mGy-cm FINDINGS: Mild generalized parenchymal volume loss. Patchy periventricular and deep white matter hypoattenuation is nonspecific but likely reflects sequelae of mild chronic microangiopathy. No territorial loss of rose-white differentiation. No acute intracranial hemorrhage or extra-axial fluid collection. No mass lesion, significant mass effect, or herniation pattern. Calcific atherosclerosis. The orbits are grossly normal. Redemonstrated moderate mucosal disease within the inferior frontal sinuses and mild ethmoid air cell mucosal disease. Mucous retention cyst along the superolateral roof of the left sphenoid sinus. Some debris within the bilateral external auditory canals, likely cerumen with 2 mm hyperdensity along the floor of the left EAC, which may reflect a foreign body. Osseous structures are intact. Incidental prominent arachnoid granulation within the left paramedian frontal calvarium with associated osseous remodeling. CT/CT head/brain wo IV con IMPRESSION: No acute intracranial abnormality. Specifically, no CT evidence of acute intracranial hemorrhage, significant mass effect, hydrocephalus, or large territorial infarction. 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
[2022-09-02 14:41] VITALS: BP 145/96; PULSE 84; RESP 19; TEMP 36.6; O2SAT 94; BMI 31.0
--- NOTE | 2022-09-02 14:41 | ED.GENADULT ---
HPI - General Adult General Chief complaint: General Medical <OZZY Bueno - Last Filed: 09/02/22 14:49> Stated complaint: Fatigue/AMS <OZZY Bueno - Last Filed: 09/02/22 14:49> Time Seen by Provider: 09/03/22 00:58 <OZZY Bueno - Last Filed: 09/02/22 14:49> Source: patient <Kenn Chandler MD - Last Filed: 09/03/22 06:38> Mode of arrival: ambulatory <Kenn Chandler MD - Last Filed: 09/03/22 06:38> Limitations: no limitations <Kenn Chandler MD - Last Filed: 09/03/22 06:38> History of Present Illness HPI narrative: 76-year-old male who presents emergency department for evaluation of fatigue, confusion, feeling off balance, difficulty with memory times 4-6 weeks. The patient denied any head injury. He denied fever, chills, chest pain or shortness of breath. He denied weight loss or weight gain, night sweats. 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 The patient states that he has been homeless and has been living in his car for approximately 4-5 years. He denies alcohol or drug use. <Kenn Chandler MD - Last Filed: 09/03/22 06:38> Related Data Home medications: Previous Rx's Medication Instructions Recorded amlodipine 5 mg tablet 10 mg PO DAILY 30 days #60 tabs 03/02/22 doxycycline hyclate 100 mg tablet 100 mg PO Q12H 10 days #20 tabs 03/02/22 <OZZY Bueno - Last Filed: 09/02/22 14:49> Allergies/adverse reactions: Allergies Allergy/AdvReac Type Severity Reaction Status Date / Time No Known Allergies Allergy Verified 04/28/22 12:17 <OZZY Bueno - Last Filed: 09/02/22 14:49> Review of Systems Review of Systems: Yes all other systems are reviewed and are negative <Kenn Chandler MD - Last Filed: 09/03/22 06:38> PMFSH Past Medical History PMFSH Narrative: Past medical history: Hypertension. Social history: He is homeless, he lives in his car, he states that he has been living in his car for 4-5 years. He denies tobacco, alcohol and drug use. <Kenn Chandler MD - Last Filed: 09/03/22 06:38> Social History Social History: Social History Household Members: None Housing: Homeless Alcohol intake: former Patient Tobacco Use Status: Former Tobacco user Smoked in Last 30 Days: No Use of substances other than those prescribed or required for medical reasons: No Advance Directives: No Advance Directives Information Provided: No service: No Current occupational status: retired <OZZY Bueno - Last Filed: 09/02/22 14:49> Physical Exam ED Vital Signs: Vital Signs - 24 hr 09/02/22 14:41 09/02/22 21:50 09/03/22 00:47 Temperature 98 F 97.7 F 97.6 F Pulse Rate 84 67 75 Respiratory Rate 19 16 18 Blood Pressure 145/96 H 151/74 H 167/80 H Pulse Oximetry 94 95 95 Oxygen Delivery Method Room Air Room Air Room Air 09/03/22 03:52 09/03/22 06:09 Temperature 98.2 F 98.1 F Pulse Rate 66 58 Respiratory Rate 17 17 Blood Pressure 136/85 154/97 H Pulse Oximetry 96 97 Oxygen Delivery Method Room Air Room Air BMI result Body Mass Index 31.0 <OZZY Bueno - Last Filed: 09/02/22 14:49> Vital Signs - 24 hr 09/02/22 14:41 09/02/22 21:50 09/03/22 00:47 Temperature 98 F 97.7 F 97.6 F Pulse Rate 84 67 75 Respiratory Rate 19 16 18 Blood Pressure 145/96 H 151/74 H 167/80 H Pulse Oximetry 94 95 95 Oxygen Delivery Method Room Air Room Air Room Air 09/03/22 03:52 09/03/22 06:09 Temperature 98.2 F 98.1 F Pulse Rate 66 58 Respiratory Rate 17 17 Blood Pressure 136/85 154/97 H Pulse Oximetry 96 97 Oxygen Delivery Method Room Air Room Air BMI result Body Mass Index 31.0 <Kenn Chandler MD - Last Filed: 09/03/22 06:38> Const Other: The patient is disheveled, he is awake, alert, does not appear to be in distress, answers all questions appropriately <MD Martha Hall Last Filed: 09/03/22 06:38> HENMT Head: Yes normal to inspection, Yes normocephalic and Yes atraumatic <MD Martha Hall Last Filed: 09/03/22 06:38> Ears: external ears normal <MD Martha Hall Last Filed: 09/03/22 06:38> General nose exam: Normal external nose present <MD Martha Hall Last Filed: 09/03/22 06:38> Face and sinus: Yes normal facial exam <MD Martha Hall Last Filed: 09/03/22 06:38> Mouth: Normal oral and palatal mucosa present <MD Martha Hall Last Filed: 09/03/22 06:38> Throat: Yes posterior oropharynx normal <MD Martha Hall Last Filed: 09/03/22 06:38> Eyes General: appearance normal, both eyes and all related structures <MD Martha Hall Last Filed: 09/03/22 06:38> Pupils: Equal, round and reactive pupils present <MD Martha Hall Last Filed: 09/03/22 06:38> Neck Neck: Yes normal visual inspection, Yes no lymphadenopathy, Yes trachea midline and Yes supple <MD Martha Hall Last Filed: 09/03/22 06:38> Chest Chest palpation & inspection: normal inspection of the chest and normal palpation of entire chest wall <MD Martha Hall Last Filed: 09/03/22 06:38> Resp Effort & Inspection: normal respiratory effort and able to speak in complete sentences <MD Martha Hall Last Filed: 09/03/22 06:38> Auscultation: clear to auscultation bilaterally <MD Martha Hall Last Filed: 09/03/22 06:38> Cardio Rate: regular rate <Kenn Chandler MD - Last Filed: 09/03/22 06:38> Rhythm: regular rhythm <Kenn Chandler MD - Last Filed: 09/03/22 06:38> Heart sounds: S1 normal heart sound present, S2 normal heart sound present and no murmurs <Kenn Chandler MD - Last Filed: 09/03/22 06:38> GI Inspection: Yes normal to inspection <Kenn Chandler MD - Last Filed: 09/03/22 06:38> Palpation (GI): Soft to palpation, nontender and no guarding <Kenn Chandler MD - Last Filed: 09/03/22 06:38> Auscultation: normal bowel sounds <Kenn Chandler MD - Last Filed: 09/03/22 06:38> General: Yes no CVA tenderness <Kenn Chandler MD - Last Filed: 09/03/22 06:38> Back/Spine/Pelvis Back: no CVA tenderness <Kenn Chandler MD - Last Filed: 09/03/22 06:38> Skin General skin exam: no rashes or lesions noted <Kenn Chandler MD - Last Filed: 09/03/22 06:38> Neuro Cranial nerves: Yes CN's II-XII intact bilaterally and Yes Equal, round and reactive pupils present <Kenn Chandler MD - Last Filed: 09/03/22 06:38> Cognition (Neuro): normal cognition <Kenn Chandler MD - Last Filed: 09/03/22 06:38> Motor exam (neuro): 5/5 motor strength present throughout <Kenn Chandler MD - Last Filed: 09/03/22 06:38> Extrem General: Yes normal to inspection <Kenn Chandler MD - Last Filed: 09/03/22 06:38> Psych Appearance: grossly normal <Kenn Chandler MD - Last Filed: 09/03/22 06:38> Speech and movement: Normal speech and movement present <Kenn Chandler MD - Last Filed: 09/03/22 06:38> Affect: normal affect <Kenn Chandler MD - Last Filed: 09/03/22 06:38> Attitude: cooperative <Kenn Chandler MD - Last Filed: 09/03/22 06:38> Thought process: Normal thought process present <Kenn Chandler MD - Last Filed: 09/03/22 06:38> Thought content: Normal thought content present <Kenn Chandler MD - Last Filed: 09/03/22 06:38> Course Course Course Narrative: RME--76yo M w/PMHx aseptic meningitis/toxic metabolic encephalopathy, c/o generalized fatigue/weakness, diarrhea, and disorientation worsening over the past few weeks. Admits sx feel similar to prior meningitis. States drives by places hes going to and has to turn around, cant concentrate on more than one thing, and having difficulty performing tasks he normally can perform without issue A&Ox3 in triage, ambulating with steady gait EKG, Labs, UA, Blood Cx ordered <OZZY Bueno - Last Filed: 09/02/22 14:49> Medical Decision Making Medical Decision Making MDM Narrative: 76-year-old male who presents emergency department complaining of fatigue, confusion, lost balance, difficulty with memory times 4-6 weeks. Patient is homeless but lives in his car and he has been living in his car for 4-5 years. He denies alcohol and drug use. Patient's review of systems was unremarkable. Vital signs were normal. Exam was unremarkable. Patient had a CBC, CMP, urinalysis, urine tox screen, COVID-19 , RSV and influenza test ordered from provider at triage 0125: My interpretation of the patient's laboratory evaluation is as follows CBC was normal. Glucose was elevated 127. Urinalysis was negative. Urine tox screen was positive for opiates. COVID-19, RSV and influenza were negative. I did order a CT scan of the brain without IV contrast to rule out stroke or mass effect from tumor. 0526: The patient's CT scan of the brain was unremarkable. At this time I do not have a clear etiology for the patient's symptoms however the patient did have a tox screen was positive for opiates and I did discuss this with him. Patient was discharged home. <Kenn Chandler MD - Last Filed: 09/03/22 06:38> Lab Data MDM Lab Attestation statement: I reviewed the patient's lab results. <Kenn Chandler MD - Last Filed: 09/03/22 06:38> Result Diagrams: 09/02/22 15:23 09/02/22 15:23 <OZZY Bueno - Last Filed: 09/02/22 14:49> Labs: Lab Results 09/02/22 09/02/22 09/02/22 Range/Units 15:23 15:23 15:23 WBC 8.6 (4.8-10.8) X10*3/uL RBC 5.09 (4.60-5.80) X10*6/uL Hgb 15.7 (14.0-18.0) g/dl Hct 45.4 (42.0-52.0) % MCV 89.2 (80.0-98.0) fL MCH 30.8 (27.0-33.0) pg MCHC 34.6 (31.0-36.0) g/dl RDW 12.6 (11.0-16.0) % Plt Count 257 (160-400) X10*3/uL MPV 9.6 (9.4-12.4) fL Immature Gran % (Auto) 0.2 (0.0-0.4) % Neut % (Auto) 57.2 (45-73) % Lymph % (Auto) 28.8 (20-40) % [place] % (Auto) 8.7 (2-11) % Eos % (Auto) 4.1 H (0-4) % Baso % (Auto) 1.0 (0-2) % Lymph # (Auto) 2.5 (1.2-4.9) X10*3/uL [place] # (Auto) 0.8 (0.1-1.2) X10*3/uL Eos # (Auto) 0.4 (0.0-0.4) X10*3/uL Baso # (Auto) 0.1 (0.0-0.2) X10*3/uL Abs Immat Gran (auto) 0.02 (0.00-0.03) X10*3/uL Absolute Neuts (auto) 4.9 (2.0-8.3) x10*3/uL Absolute Nucleated RBC 0.000 (0.0-0.012) X10*3/uL Nucleated RBC % (auto) 0.0 (0.0-0.2) /100WBC PT (10.0-13.1) SEC INR (0.9-1.1) Sodium 141 (135-145) mmol/L Potassium 4.0 (3.3-5.1) mmol/L Chloride 109 H (96-108) mmol/L Carbon Dioxide 24 (22-29) mmol/L Anion Gap 12 (12-20) BUN 16 (9-16) mg/dL Creatinine 1.03 (0.5-1.4) mg/dL Estim Creat Clear Calc 70.5 Estimated GFR > 60 Random Glucose 127 H (60-115) mg/dL Lactic Acid (0.5-2.0) mmol/L Calcium 9.1 (8.4-10.2) mg/dL Magnesium 2.2 (1.6-2.6) mg/dL Total Bilirubin 1.7 H (0.0-1.0) mg/dL Direct Bilirubin 0.3 (0.0-0.5) mg/dL AST 21 (5-37) U/L ALT 13 (0-40) U/L Alkaline Phosphatase 83 (39-117) U/L Ammonia 34 (13-55) umol/L Troponin I High Sens (<3.5-35.0) ng/L Total Protein 7.3 (6.5-8.0) g/dL Albumin 4.3 (3.5-5.0) g/dL Urine Color Urine Appearance Urine pH (5.0-9.0) Ur Specific [place] (1.005-1.025) Urine Protein (Neg-Trace) mg/dL Urine Glucose (UA) (Negative) mg/dL Urine Ketones (Negative) mg/dL Urine Blood (Negative) Urine Nitrite (Negative) Ur Leukocyte Esterase (Negative) Urine RBC (0-2) /HPF Urine WBC (0-5) /HPF Ur Squamous Epith Cells (0-2) /HPF Calcium Oxalate Crystal Urine Bacteria (None Seen) Hyaline Casts (0-2) /LPF Urine Opiates Screen (Not Detect) Urine Fentanyl Screen (Not Detect) Ur Barbiturates Screen (Not Detect) Ur Phencyclidine Scrn (Not Detect) Ur Amphetamines Screen (Not Detect) U Benzodiazepines Scrn (Not Detect) Urine Cocaine Screen (Not Detect) U Marijuana (THC) Screen (Not Detect) Influenza Type A (PCR) (Negative) Influenza Type B (PCR) (Negative) RSV RNA Qual (PCR) (Negative) SARS-CoV-2 RNA (RT-PCR) (Negative) 09/02/22 09/02/22 09/02/22 Range/Units 15:23 15:23 15:23 WBC (4.8-10.8) X10*3/uL RBC (4.60-5.80) X10*6/uL Hgb (14.0-18.0) g/dl Hct (42.0-52.0) % MCV (80.0-98.0) fL MCH (27.0-33.0) pg MCHC (31.0-36.0) g/dl RDW (11.0-16.0) % Plt Count (160-400) X10*3/uL MPV (9.4-12.4) fL Immature Gran % (Auto) (0.0-0.4) % Neut % (Auto) (45-73) % Lymph % (Auto) (20-40) % [place] % (Auto) (2-11) % Eos % (Auto) (0-4) % Baso % (Auto) (0-2) % Lymph # (Auto) (1.2-4.9) X10*3/uL [place] # (Auto) (0.1-1.2) X10*3/uL Eos # (Auto) (0.0-0.4) X10*3/uL Baso # (Auto) (0.0-0.2) X10*3/uL Abs Immat Gran (auto) (0.00-0.03) X10*3/uL Absolute Neuts (auto) (2.0-8.3) x10*3/uL Absolute Nucleated RBC (0.0-0.012) X10*3/uL Nucleated RBC % (auto) (0.0-0.2) /100WBC PT (10.0-13.1) SEC INR (0.9-1.1) Sodium (135-145) mmol/L Potassium (3.3-5.1) mmol/L Chloride (96-108) mmol/L Carbon Dioxide (22-29) mmol/L Anion Gap (12-20) BUN (9-16) mg/dL Creatinine (0.5-1.4) mg/dL Estim Creat Clear Calc Estimated GFR Random Glucose (60-115) mg/dL Lactic Acid 2.0 (0.5-2.0) mmol/L Calcium (8.4-10.2) mg/dL Magnesium (1.6-2.6) mg/dL Total Bilirubin (0.0-1.0) mg/dL Direct Bilirubin (0.0-0.5) mg/dL AST (5-37) U/L ALT (0-40) U/L Alkaline Phosphatase (39-117) U/L Ammonia (13-55) umol/L Troponin I High Sens 7.4 D (<3.5-35.0) ng/L Total Protein (6.5-8.0) g/dL Albumin (3.5-5.0) g/dL Urine Color Urine Appearance Urine pH (5.0-9.0) Ur Specific [place] (1.005-1.025) Urine Protein (Neg-Trace) mg/dL Urine Glucose (UA) (Negative) mg/dL Urine Ketones (Negative) mg/dL Urine Blood (Negative) Urine Nitrite (Negative) Ur Leukocyte Esterase (Negative) Urine RBC (0-2) /HPF Urine WBC (0-5) /HPF Ur Squamous Epith Cells (0-2) /HPF Calcium Oxalate Crystal Urine Bacteria (None Seen) Hyaline Casts (0-2) /LPF Urine Opiates Screen (Not Detect) Urine Fentanyl Screen (Not Detect) Ur Barbiturates Screen (Not Detect) Ur Phencyclidine Scrn (Not Detect) Ur Amphetamines Screen (Not Detect) U Benzodiazepines Scrn (Not Detect) Urine Cocaine Screen (Not Detect) U Marijuana (THC) Screen (Not Detect) Influenza Type A (PCR) NEGATIVE (Negative) Influenza Type B (PCR) NEGATIVE (Negative) RSV RNA Qual (PCR) NEGATIVE (Negative) SARS-CoV-2 RNA (RT-PCR) NEGATIVE (Negative) 03/09/02/22 09/02/22 Range/Units 15:24 15:28 15:28 WBC (4.8-10.8) X10*3/uL RBC (4.60-5.80) X10*6/uL Hgb (14.0-18.0) g/dl Hct (42.0-52.0) % MCV (80.0-98.0) fL MCH (27.0-33.0) pg MCHC (31.0-36.0) g/dl RDW (11.0-16.0) % Plt Count (160-400) X10*3/uL MPV (9.4-12.4) fL Immature Gran % (Auto) (0.0-0.4) % Neut % (Auto) (45-73) % Lymph % (Auto) (20-40) % [place] % (Auto) (2-11) % Eos % (Auto) (0-4) % Baso % (Auto) (0-2) % Lymph # (Auto) (1.2-4.9) X10*3/uL [place] # (Auto) (0.1-1.2) X10*3/uL Eos # (Auto) (0.0-0.4) X10*3/uL Baso # (Auto) (0.0-0.2) X10*3/uL Abs Immat Gran (auto) (0.00-0.03) X10*3/uL Absolute Neuts (auto) (2.0-8.3) x10*3/uL Absolute Nucleated RBC (0.0-0.012) X10*3/uL Nucleated RBC % (auto) (0.0-0.2) /100WBC PT 11.6 (10.0-13.1) SEC INR 1.0 (0.9-1.1) Sodium (135-145) mmol/L Potassium (3.3-5.1) mmol/L Chloride (96-108) mmol/L Carbon Dioxide (22-29) mmol/L Anion Gap (12-20) BUN (9-16) mg/dL Creatinine (0.5-1.4) mg/dL Estim Creat Clear Calc Estimated GFR Random Glucose (60-115) mg/dL Lactic Acid (0.5-2.0) mmol/L Calcium (8.4-10.2) mg/dL Magnesium (1.6-2.6) mg/dL Total Bilirubin (0.0-1.0) mg/dL Direct Bilirubin (0.0-0.5) mg/dL AST (5-37) U/L ALT (0-40) U/L Alkaline Phosphatase (39-117) U/L Ammonia (13-55) umol/L Troponin I High Sens (<3.5-35.0) ng/L Total Protein (6.5-8.0) g/dL Albumin (3.5-5.0) g/dL Urine Color Yellow Urine Appearance Clear Urine pH 5.5 (5.0-9.0) Ur Specific [place] >= 1.030 H (1.005-1.025) Urine Protein Trace (Neg-Trace) mg/dL Urine Glucose (UA) Negative (Negative) mg/dL Urine Ketones Negative (Negative) mg/dL Urine Blood Small (1+) H (Negative) Urine Nitrite Negative (Negative) Ur Leukocyte Esterase Negative (Negative) Urine RBC 0-2 (0-2) /HPF Urine WBC 0-5 (0-5) /HPF Ur Squamous Epith Cells 0-2 (0-2) /HPF Calcium Oxalate Crystal Present Urine Bacteria None Seen (None Seen) Hyaline Casts 0-2 (0-2) /LPF Urine Opiates Screen POSITIVE H (Not Detect) Urine Fentanyl Screen Not Detected (Not Detect) Ur Barbiturates Screen Not Detected (Not Detect) Ur Phencyclidine Scrn Not Detected (Not Detect) Ur Amphetamines Screen Not Detected (Not Detect) U Benzodiazepines Scrn Not Detected (Not Detect) Urine Cocaine Screen Not Detected (Not Detect) U Marijuana (THC) Screen Not Detected (Not Detect) Influenza Type A (PCR) (Negative) Influenza Type B (PCR) (Negative) RSV RNA Qual (PCR) (Negative) SARS-CoV-2 RNA (RT-PCR) (Negative) <OZZY Bueno - Last Filed: 09/02/22 14:49> Lab Results 09/02/22 09/02/22 09/02/22 Range/Units 15:23 15:23 15:23 WBC 8.6 (4.8-10.8) X10*3/uL RBC 5.09 (4.60-5.80) X10*6/uL Hgb 15.7 (14.0-18.0) g/dl Hct 45.4 (42.0-52.0) % MCV 89.2 (80.0-98.0) fL MCH 30.8 (27.0-33.0) pg MCHC 34.6 (31.0-36.0) g/dl RDW 12.6 (11.0-16.0) % Plt Count 257 (160-400) X10*3/uL MPV 9.6 (9.4-12.4) fL Immature Gran % (Auto) 0.2 (0.0-0.4) % Neut % (Auto) 57.2 (45-73) % Lymph % (Auto) 28.8 (20-40) % [place] % (Auto) 8.7 (2-11) % Eos % (Auto) 4.1 H (0-4) % Baso % (Auto) 1.0 (0-2) % Lymph # (Auto) 2.5 (1.2-4.9) X10*3/uL [place] # (Auto) 0.8 (0.1-1.2) X10*3/uL Eos # (Auto) 0.4 (0.0-0.4) X10*3/uL Baso # (Auto) 0.1 (0.0-0.2) X10*3/uL Abs Immat Gran (auto) 0.02 (0.00-0.03) X10*3/uL Absolute Neuts (auto) 4.9 (2.0-8.3) x10*3/uL Absolute Nucleated RBC 0.000 (0.0-0.012) X10*3/uL Nucleated RBC % (auto) 0.0 (0.0-0.2) /100WBC PT (10.0-13.1) SEC INR (0.9-1.1) Sodium 141 (135-145) mmol/L Potassium 4.0 (3.3-5.1) mmol/L Chloride 109 H (96-108) mmol/L Carbon Dioxide 24 (22-29) mmol/L Anion Gap 12 (12-20) BUN 16 (9-16) mg/dL Creatinine 1.03 (0.5-1.4) mg/dL Estim Creat Clear Calc 70.5 Estimated GFR > 60 Random Glucose 127 H (60-115) mg/dL Lactic Acid (0.5-2.0) mmol/L Calcium 9.1 (8.4-10.2) mg/dL Magnesium 2.2 (1.6-2.6) mg/dL Total Bilirubin 1.7 H (0.0-1.0) mg/dL Direct Bilirubin 0.3 (0.0-0.5) mg/dL AST 21 (5-37) U/L ALT 13 (0-40) U/L Alkaline Phosphatase 83 (39-117) U/L Ammonia 34 (13-55) umol/L Troponin I High Sens (<3.5-35.0) ng/L Total Protein 7.3 (6.5-8.0) g/dL Albumin 4.3 (3.5-5.0) g/dL Urine Color Urine Appearance Urine pH (5.0-9.0) Ur Specific [place] (1.005-1.025) Urine Protein (Neg-Trace) mg/dL Urine Glucose (UA) (Negative) mg/dL Urine Ketones (Negative) mg/dL Urine Blood (Negative) Urine Nitrite (Negative) Ur Leukocyte Esterase (Negative) Urine RBC (0-2) /HPF Urine WBC (0-5) /HPF Ur Squamous Epith Cells (0-2) /HPF Calcium Oxalate Crystal Urine Bacteria (None Seen) Hyaline Casts (0-2) /LPF Urine Opiates Screen (Not Detect) Urine Fentanyl Screen (Not Detect) Ur Barbiturates Screen (Not Detect) Ur Phencyclidine Scrn (Not Detect) Ur Amphetamines Screen (Not Detect) U Benzodiazepines Scrn (Not Detect) Urine Cocaine Screen (Not Detect) U Marijuana (THC) Screen (Not Detect) Influenza Type A (PCR) (Negative) Influenza Type B (PCR) (Negative) RSV RNA Qual (PCR) (Negative) SARS-CoV-2 RNA (RT-PCR) (Negative) 09/02/22 09/02/22 09/02/22 Range/Units 15:23 15:23 15:23 WBC (4.8-10.8) X10*3/uL RBC (4.60-5.80) X10*6/uL Hgb (14.0-18.0) g/dl Hct (42.0-52.0) % MCV (80.0-98.0) fL MCH (27.0-33.0) pg MCHC (31.0-36.0) g/dl RDW (11.0-16.0) % Plt Count (160-400) X10*3/uL MPV (9.4-12.4) fL Immature Gran % (Auto) (0.0-0.4) % Neut % (Auto) (45-73) % Lymph % (Auto) (20-40) % [place] % (Auto) (2-11) % Eos % (Auto) (0-4) % Baso % (Auto) (0-2) % Lymph # (Auto) (1.2-4.9) X10*3/uL [place] # (Auto) (0.1-1.2) X10*3/uL Eos # (Auto) (0.0-0.4) X10*3/uL Baso # (Auto) (0.0-0.2) X10*3/uL Abs Immat Gran (auto) (0.00-0.03) X10*3/uL Absolute Neuts (auto) (2.0-8.3) x10*3/uL Absolute Nucleated RBC (0.0-0.012) X10*3/uL Nucleated RBC % (auto) (0.0-0.2) /100WBC PT (10.0-13.1) SEC INR (0.9-1.1) Sodium (135-145) mmol/L Potassium (3.3-5.1) mmol/L Chloride (96-108) mmol/L Carbon Dioxide (22-29) mmol/L Anion Gap (12-20) BUN (9-16) mg/dL Creatinine (0.5-1.4) mg/dL Estim Creat Clear Calc Estimated GFR Random Glucose (60-115) mg/dL Lactic Acid 2.0 (0.5-2.0) mmol/L Calcium (8.4-10.2) mg/dL Magnesium (1.6-2.6) mg/dL Total Bilirubin (0.0-1.0) mg/dL Direct Bilirubin (0.0-0.5) mg/dL AST (5-37) U/L ALT (0-40) U/L Alkaline Phosphatase (39-117) U/L Ammonia (13-55) umol/L Troponin I High Sens 7.4 D (<3.5-35.0) ng/L Total Protein (6.5-8.0) g/dL Albumin (3.5-5.0) g/dL Urine Color Urine Appearance Urine pH (5.0-9.0) Ur Specific [place] (1.005-1.025) Urine Protein (Neg-Trace) mg/dL Urine Glucose (UA) (Negative) mg/dL Urine Ketones (Negative) mg/dL Urine Blood (Negative) Urine Nitrite (Negative) Ur Leukocyte Esterase (Negative) Urine RBC (0-2) /HPF Urine WBC (0-5) /HPF Ur Squamous Epith Cells (0-2) /HPF Calcium Oxalate Crystal Urine Bacteria (None Seen) Hyaline Casts (0-2) /LPF Urine Opiates Screen (Not Detect) Urine Fentanyl Screen (Not Detect) Ur Barbiturates Screen (Not Detect) Ur Phencyclidine Scrn (Not Detect) Ur Amphetamines Screen (Not Detect) U Benzodiazepines Scrn (Not Detect) Urine Cocaine Screen (Not Detect) U Marijuana (THC) Screen (Not Detect) Influenza Type A (PCR) NEGATIVE (Negative) Influenza Type B (PCR) NEGATIVE (Negative) RSV RNA Qual (PCR) NEGATIVE (Negative) SARS-CoV-2 RNA (RT-PCR) NEGATIVE (Negative) 09/02/22 09/02/22 09/02/22 Range/Units 15:24 15:28 15:28 WBC (4.8-10.8) X10*3/uL RBC (4.60-5.80) X10*6/uL Hgb (14.0-18.0) g/dl Hct (42.0-52.0) % MCV (80.0-98.0) fL MCH (27.0-33.0) pg MCHC (31.0-36.0) g/dl RDW (11.0-16.0) % Plt Count (160-400) X10*3/uL MPV (9.4-12.4) fL Immature Gran % (Auto) (0.0-0.4) % Neut % (Auto) (45-73) % Lymph % (Auto) (20-40) % [place] % (Auto) (2-11) % Eos % (Auto) (0-4) % Baso % (Auto) (0-2) % Lymph # (Auto) (1.2-4.9) X10*3/uL [place] # (Auto) (0.1-1.2) X10*3/uL Eos # (Auto) (0.0-0.4) X10*3/uL Baso # (Auto) (0.0-0.2) X10*3/uL Abs Immat Gran (auto) (0.00-0.03) X10*3/uL Absolute Neuts (auto) (2.0-8.3) x10*3/uL Absolute Nucleated RBC (0.0-0.012) X10*3/uL Nucleated RBC % (auto) (0.0-0.2) /100WBC PT 11.6 (10.0-13.1) SEC INR 1.0 (0.9-1.1) Sodium (135-145) mmol/L Potassium (3.3-5.1) mmol/L Chloride (96-108) mmol/L Carbon Dioxide (22-29) mmol/L Anion Gap (12-20) BUN (9-16) mg/dL Creatinine (0.5-1.4) mg/dL Estim Creat Clear Calc Estimated GFR Random Glucose (60-115) mg/dL Lactic Acid (0.5-2.0) mmol/L Calcium (8.4-10.2) mg/dL Magnesium (1.6-2.6) mg/dL Total Bilirubin (0.0-1.0) mg/dL Direct Bilirubin (0.0-0.5) mg/dL AST (5-37) U/L ALT (0-40) U/L Alkaline Phosphatase (39-117) U/L Ammonia (13-55) umol/L Troponin I High Sens (<3.5-35.0) ng/L Total Protein (6.5-8.0) g/dL Albumin (3.5-5.0) g/dL Urine Color Yellow Urine Appearance Clear Urine pH 5.5 (5.0-9.0) Ur Specific [place] >= 1.030 H (1.005-1.025) Urine Protein Trace (Neg-Trace) mg/dL Urine Glucose (UA) Negative (Negative) mg/dL Urine Ketones Negative (Negative) mg/dL Urine Blood Small (1+) H (Negative) Urine Nitrite Negative (Negative) Ur Leukocyte Esterase Negative (Negative) Urine RBC 0-2 (0-2) /HPF Urine WBC 0-5 (0-5) /HPF Ur Squamous Epith Cells 0-2 (0-2) /HPF Calcium Oxalate Crystal Present Urine Bacteria None Seen (None Seen) Hyaline Casts 0-2 (0-2) /LPF Urine Opiates Screen POSITIVE H (Not Detect) Urine Fentanyl Screen Not Detected (Not Detect) Ur Barbiturates Screen Not Detected (Not Detect) Ur Phencyclidine Scrn Not Detected (Not Detect) Ur Amphetamines Screen Not Detected (Not Detect) U Benzodiazepines Scrn Not Detected (Not Detect) Urine Cocaine Screen Not Detected (Not Detect) U Marijuana (THC) Screen Not Detected (Not Detect) Influenza Type A (PCR) (Negative) Influenza Type B (PCR) (Negative) RSV RNA Qual (PCR) (Negative) SARS-CoV-2 RNA (RT-PCR) (Negative) <Kenn Chandler MD - Last Filed: 09/03/22 06:38> Radiology Impression Discussion of test interpretation with radiology: I have reviewed the radiologist's reading. <Kenn Chandler MD - Last Filed: 09/03/22 06:38> Radiologist Impression: RDER #: [id number] CT/CT head/brain wo IV con IMPRESSION: No acute intracranial abnormality. Specifically, no CT evidence of acute intracranial hemorrhage, significant mass effect, hydrocephalus, or large territorial infarction. 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 Dictated By:Gabi Margned By:<Electronically signed by Monse Mar in [place]>09/03/22212 <Kenn Chandler MD - Last Filed: 09/03/22 06:38> Discharge Plan Discharge Clinical Impression: Altered mental state <OZZY Bueno - Last Filed: 09/02/22 14:49> Patient Disposition: Home, Self-Care <OZZY Bueno Last Filed: 09/02/22 14:49> Additional Instructions: Your blood work was normal. The CT scan of your brain did not reveal any stroke, bleeding in the brain or tumor of the brain which is reassuring. Your urine drug screen was positive for opiates. I do not think that you have meningitis or an infection that is causing your confusion and your other symptoms Continue taking medications as prescribed by your providers Follow-up with your doctor in 2 days. Please return to the emergency department if your symptoms get worse or if you develop any symptoms that are concerning to you. <OZZY Bueno - Last Filed: 09/02/22 14:49> Prescriptions: No Action doxycycline hyclate 100 mg Tablet 100 mg PO Q12H 10 Days Qty: 20 0RF amlodipine 5 mg Tablet 10 mg PO DAILY 30 Days Qty: 60 0RF Protocol: Hold for SBP< HOLD for SBP < : 90 <OZZY Bueno - Last Filed: 09/02/22 14:49>
--- NOTE | 2022-09-02 14:47 | ECG_ITS ---
Test Reason : AMS Blood Pressure : / mmHG Vent. Rate : 071 BPM Atrial Rate : 071 BPM P-R Int : 212 ms QRS Dur : 090 ms QT Int : 392 ms P-R-T Axes : 020 -22 025 degrees QTc Int : 425 ms Sinus rhythm with 1st degree A-V block with Premature supraventricular complexes Moderate voltage criteria for LVH, may be normal variant ( R in aVL , Ulices product ) Borderline ECG When compared with ECG of 28-APR-2022 14:02, Premature supraventricular complexes are now Present Referred By: Azra Giron Electronically Signed By:Cameron Salazar
[2022-09-02 15:28] LABS: MANUAL DIFF FLAG NO
--- OUTSIDE RECORDS SUMMARY | 2022-09-02 15:30 | XMS_ITS | Continuity of Care Document ---
:1945 Author Organization [facility] Address [address] [place] [address]- Care Team Providers Name Role Phone Kayce Regalado MD Primary Care Physician Encounter [facility] [place] Date(s): 04/30/22 - 05/30/22 [facility] [address] [place], [place] [address] Attending Physician: Gabriel Heredia Admitting Physician: Gabriel Heredia Referring Physician: AdmtrGabriel Allergies, Adverse Reactions, Alerts Substance Reaction Severity Status Percocet 2.5/325 vomitting Active Problem List Condition Confirmation Course Effective Dates Status Health I nformant Status Hypertensive Confirmed Active cardiomegaly Edema Confirmed Active Homeless Confirmed Active HTN (hypertension) Confirmed Active Hypertensive heart Confirmed Active disease [HCC] with diastolic dysfunction and left atrial enlargement Colon polyps Confirmed Active Hepatic steatosis Confirmed Active Venous insufficiency Confirmed Active of both lower extremities Social History Social History Type Response Smoking Status Former smoker; Other: quit 2 0 years ago; entered on: 11/12/15 Sex Patient Care team information Care Team PersonnelName: Kayce Regalado MD Position: [facility] PCO TA Member Role: PCP Address: Address: [address] [place] [address]- Care Team Related PersonsName: PT STATE, NO ONE
--- OUTSIDE RECORDS SUMMARY | 2022-09-02 15:30 | XMS_ITS | Continuity of Care Document ---
:1945 Author Organization [facility] Address [address] [place] [address]- Care Team Providers Name Role Phone Kayce Regalado MD [id number] Date[facility] - 05/30/22 [facility] [address] [place], [place] [address] Attending Physician: Miguelangel BHAGAT, Tamir Kirby Admitting Physician: Miguelangel BHAGAT, Tamir Kirby Referring Physician: Luis Singh MD Allergies, Adverse Reactions, Alerts Substance Reaction Severity [...] Care Team PersonnelName: Kayce Regalado MD Position: [facility] PCO TA Member Role: PCP Address: Address: [address] [place] [address]- Care Team Related PersonsName: PT STATE, NO ONE
--- OUTSIDE RECORDS SUMMARY | 2022-09-02 15:30 | XMS_ITS | Continuity of Care Document ---
:1945 Author Organization [facility] Address [address] [place] [address]- Care Team Providers Name Role Phone Kayce Regalado MD Primary Care Physician Encounter [facility] [place] [place] Date(s): 05/03/22 - 05/03/[address] [address] Discharge Disposition: A-D/C Home Attending Physician: Aime Chester MD Admitting Physician: Aime Chester MD Referring Physician: Aime Chester MD Allergies, Adverse Reactions, Alerts Substance Reaction [...] insufficiency Confirmed Active of both lower extremities Vital Signs Most recent to oldest 1 2 3 [Reference Range]: Weight 100.1 kg (05/03/22 6:50 AM) Oxygen Saturation [94-100 98 % 100 % 100 % %] (05/03/22 8:45 AM) (05/03/22 8:30 AM) (05/03/22 7:30 AM) Pulse Rate [55-90 bpm] 55 bpm (05/03/22 6:50 AM) Blood Pressure 173/95 mm Hg 191/94 mm Hg 169/77 mm Hg [90-138/55-84 mm Hg] *H* *H* *H* (05/03/22 8:45 AM) (05/03/22 8:30 AM) (05/03/22 7:30 AM) Respiratory Rate [16-30 12 br/min 19 br/min 14 br/mi n br/min] *L* (05/03/22 8:30 AM) *L* (05/03/22 8:45 AM) (05/03/22 7:3 0 AM) Temperature [96.8-100.4 97.1 DegF 97.6 DegF DegF] (05/03/22 8:30 AM) (05/03/22 6:50 AM) Liters per Minute 2 L/min (05/03/22 7:30 AM) Mode of Delivery (Oxygen) Room air Room air Nasal cannula (05/03/22 10:45 AM) (05/03/22 8:30 AM) (05/03/22 7:30 AM) Blood pressure sites Arm, right Arm, right (05/03/22 7:30 AM) (05/03/22 6:50 AM) Temperature Route Temporal Temporal (05/03/22 8:30 AM) (05/03/22 6:50 AM) Dry Weight 100.1 kg (05/03/22 6:50 AM) Weight Obtained Via Standing scale (05/03/22 6:50 AM) Dry Weight Obtained Via Standing scale (05/03/22 6:50 AM) Social History Social History Type Response Smoking Status Former smoker; Other: quit 2 0 years ago; entered on: 11/12/15 Sex Note Letitia Medley RN: PERFORM Event Display: Discharge/Transfer Note Hospital Authored Date: [id number] Nursing Discharge Note Entered On: 05/03/2022 10:53 EST Performed On: 05/03/2022 10:53 EST by Letitia Medley RN Nursing Discharge Note 2 Discharge Time : 05/03/2022 10:45 EST Discharge Level of Care at Discharge : Home/Longterm/Foster Care Patient Left Unit Via : Wheelchair Patient Accompanied Off Unit with : Responsible adult DC Instructions Provided & Signed by Pt : Yes Patient Understands D/C Instructions : Yes Patient Instructions Discharge Signed : Yes Did Pt have Specialty Bed or Wound Vac : No Letitia Medley RN - 05/03/2022 10:53 Letitia Last RN: PERFORM Event Display: Patient Education/Instruction Authored Date: [id number] Inpatient Adult Discharge Instructions [address] [id number] Name: HERMILO ANDRADE : 1945 Visit: 05/03/2022 05:43:00 Current Date: 05/03/2022 09:00 Account: [id number] Inpatient Adult Discharge Instructions We would like to thank you for allowing us to assist you with your healthcare needs. The following includes patient education materials and information regarding your injury/illness. Our entire staff strives to provide an excellent experience for our patients and their families. PLEASE ENSURE YOU FOLLOW-UP PER THE INSTRUCTIONS BELOW! ?? YOUR OPINION IS IMPORTANT TO US! Please complete the survey you may receive by mail or email. Your feedback will be used to make improvements to the healthcare experiences of our patients and their families. Surveys are administered by [employer]. ?? If further treatment with your primary care physician or another doctor is recommended, it is important for you to keep the appointment. Call your primary care physician or return to the Emergency Department immediately if your condition worsens, fails to improve, or new symptoms develop. If you need to find a doctor, you can call [facility] for a referral at [phone] or toll free at [phone] [employer] ([phone]) or log in to [email or web address].. ?? You can view and manage your care through the patient portal or by using a health care usha of your choosing. [employer] is a website that allows you to securely view your medical information including your hospital discharge summary, office visit summaries, medications and follow-up visits. You can also request appointments, renew medications, and request access to your medical information using a health care usha of your choosing, or just ask a question. You can enroll at [email or web address] or register during your next office visit. You have been discharged from [facility], Patient Care Unit: [facility]. If you have any questions regarding these instructions after you leave, please call us and we will be happy to assist you. [facility] Your Care Team Attending Physician Nemo INGRAM, Aime Consulting Providers Barby INGRAM, Maik Discharging Providers Nemo INGRAM, Aime Reason for Admission RETINAL DETACHEMMENT Tests Performed Below is a partial list of the tests performed during your hospitalization. You may have had other tests and procedures not included in this list. Please discuss all test results with your provider. Primary Care Provider Fabricio INGRAM, Kayce Salamanca Advance Directive Health Care Proxy on File No No qualifying data available. Discharge Vitals Temperature: 97.1 DegF Weight: 100.1 kg Pulse Rate: 55 bpm ?? Respiratory Rate:??12 br/min??Low ?? Systolic Blood Pressure:??173 mm Hg??High ?? Diastolic Blood Pressure:??95 mm Hg??High ?? Oxygen Saturation: 98 % ?? Studies Pending All tests and labs ordered during this hospital stay have been completed unless listed below. Pleasediscuss all pending results with your provider listed above in these instructions. ?? No incomplete studies found What to do next Instructions From Your Doctor Discharge Orders You Need to Schedule the Following Appointments Follow Up with??Aime Chester When?? Where: [address] [place] [address] [address] [facility], [place] [address]- Business (1) Follow Up with??Kayce Regalado When??In 0 days Where: [address] [place] [address]- Business (1) Discharge Medications HERMILO ANDRADE :1945 Visit Date:05/03/2022 Medications: Please continue your medications until treatment is completed or stopped by your provider. Medications not listed below should be discontinued. Discuss any questions related to medications with your provider. Test Results Below is a partial list of the most recent Laboratory test results done prior to this discharge. You may have had other tests and procedures not included in this list. Please discuss all test results with your provider. Allergies (NKA means No Known Allergies) Percocet 2.5/325??(vomitting) Problems Active Problems??(9) Colon polyps?? Edema?? Hepatic steatosis?? Homeless?? HTN (hypertension)?? Hypertensive cardiomegaly?? Hypertensive heart disease [HCC] with diastolic dysfunction and left atrial enlargement?? Obesity?? Venous insufficiency of both lower extremities?? Education Materials Below is the list of Educational Leaflet Providered with your Discharge Instructions. Surgery Medical Daystay Surgical Overnight Discharge Instructions?? Valuables and Belongings I fully understand and agree that [facility] accepts no responsibility for all my personal property including clothing, toilet articles, radios, jewelry, dentures, hearing aids, rings, money, or any other property that is in my possession or is brought to me after admission. I understand certain valuables may be placed in a hospital safe for a short period of time. I understand that the hospital is not liable for loss or damage due to accident, fire, or other natural occurrence while said property is in the safe. I accept full responsibility for any personal property that I keep with me, and will not hold the hospital responsible in case of loss or disappearance. I acknowledge that i have been encouraged to send valuables and belongings home. ?? Review of Valuable and Belonging List: With patient, With witness Date for Pt to Sign Valuables/Belongings: 05/03/22 06:50:00 ?? Valuables & Belongings ?? Clothes Electronic devices Jewelry Monetary Items Personal devices Miscellaneous Medications (Valuables) Valuables at Bedside Jacket, Pants, Shirt, Shoes, Undergarments Cell phone ?? Money, Wallet ? Valuables Sent Home ? Valuables Sent to Security ? Other Discharge Information ? Pulmonary Rehab Status?? Pulmonary Rehab Discharge Status?? Respiratory Rate:??12 br/min??Low ? Common Emergency Awareness Tips IS IT A STROKE? Act FAST and Check for these signs: FACE Does the face look uneven? ARM Does one arm drift down? SPEECH Does their speech sound strange? TIME Call at any sign of stroke ?? Heart Attack Signs Chest discomfort: Most heart attacks involve discomfort in the center of the chest and lasts more than a few minutes, or goes away and comes back. It can feel like uncomfortable pressure, squeezing, fullness or pain. Discomfort in upper body: Symptoms can include pain or discomfort in one or both arms, back, neck, jaw or stomach. Shortness of breath: With or without discomfort. Other signs: Breaking out in a cold sweat, nausea, or lightheaded. Remember, MINUTES DO MATTER. If you experience any of these heart attack warning signs, call to get immediate medical attention! ?? Smoking can increase your chances of developing chronic health problems and can cause harmful effects to other family members in your house. If you smoke, you are strongly encouraged to quit. Please call [facility] at [phone] or 1-913-588-LoveThis ([phone]) or log in to [email or web address] for referrals to smoking cessation programs. ?? The National Suicide Prevention Hotline is available 10/01 if you or someone you know needs to find areason to keep living. By calling 4-198-280-[employer] (7002) you'll be connected to a skilled, trained counselor at a crisis center in your area. INPATIENT DISCHARGE INSTRUCTIONS SIGNATURE PAGE HERMILO ANDRADE Location:[facility] Registration Date and Time:05/03/2022 05:43 EST Primary Care Physician: Fabricio INGRAM, Kayce Salamanca, I HERMILO ANDRADE, have received the above patient education materials/instructions and have verbalizedunderstanding. If ambulance or transport services are being used I further acknowledge being given achoice of service. ?? If you need to contact me, please call me at this number: . Patient/Weed Controller Name: Patient/Weed Controller Signature: Relationship to Patient: Witness Name/Signature: Date: Letitia Medley RN: PERFORM, SIGN, VERIFY Event Display: Patient Education Handout Authored Date: Letitia Medley RN: PERFORM Event Display: Patient Education Leaflets Authored Date: Surgery Medical Daystay Surgical Overnight Discharge Instructions ?? 295 Medical Daystay/Surgical Overnight Discharge Instructions ? Since your coordination and judgment may be altered by medication and/or anesthesia, a responsible adult must drive you home from the hospital. ? If you have received medication for pain or sedation while under our care, you should not drive, operate machinery, drink alcohol, or sign any legal documents for 24 hours.?? You should have someone with you at home tonight. ? Remain at home the day of discharge.?? You may be up and about unless otherwise instructed by your physician. ? You may resume your daily prescription medication schedule.?? Any depressant medication should be avoided for 24 hours unless otherwise instructed by your surgeon or anesthesiologist. ? Call your physician for a follow-up appointment.? If you experience unusual or severe pain not relied by your pain medication, excessive bleedingor drainage, persistent nausea and vomiting, excessive swelling or redness, foul odor from incision site or fever over 100.6F, you need to call your physician. ? A follow-up phone call by a nurse will be made the day after your procedure.?? If you have stayed with us over night, you will not be receiving a follow-up phone call. ? Nausea and vomiting are a common side effect of prescription pain medication.?? We recommend that pills are not taken on an empty stomach.?? While taking any prescription pain medication you should not drive or drink alcohol. ? Patient Care team information Care Team PersonnelName: Fabricio INGRAM, Kayce Salamanca Position: S PCO TA Member Role: PCP Address: Address: [address] [facility] [place] [address]- Care Team Related PersonsName: PT STATE, NO ONE
[2022-09-02 15:37] LABS: Basophils Absolute Auto 0.1 X10*3/uL (0.0-0.2); Eosinophils Absolute Auto 0.4 X10*3/uL (0.0-0.4); Eosinophils Percent Auto 4.1 % (0-4); Hematocrit 45.4 % (42.0-52.0); Hemoglobin 15.7 g/dl (14.0-18.0); Imm Gran Abs Auto 0.02 X10*3/uL (0.00-0.03); Imm Gran Pct Auto 0.2 % (0.0-0.4); Lymphocytes Absolute Auto 2.5 X10*3/uL (1.2-4.9); Lymphocytes Percent Auto 28.8 % (20-40); Mean Corpuscular HGB Conc 34.6 g/dl (31.0-36.0); Mean Corpuscular Hemoglobin 30.8 pg (27.0-33.0); Mean Corpuscular Volume 89.2 fL (80.0-98.0); Mean Platelet Volume 9.6 fL (9.4-12.4); Monocytes Absolute Auto 0.8 X10*3/uL (0.1-1.2); Monocytes Percent Auto 8.7 % (2-11); Neutrophils Absolute Auto 4.9 x10*3/uL (2.0-8.3); Neutrophils Percent Auto 57.2 % (45-73); Platelet Count 257 X10*3/uL (160-400); Red Blood Count 5.09 X10*6/uL (4.60-5.80); Red Cell Distribution Width 12.6 % (11.0-16.0); White Blood Count 8.6 X10*3/uL (4.8-10.8)
[2022-09-02 15:42] LABS: Prothrombin Time 11.6 SEC (10.0-13.1)
[2022-09-02 15:50] LABS: Alanine Aminotransferase 13 U/L (0-40); Albumin Level 4.3 g/dL (3.5-5.0); Alkaline Phosphatase 83 U/L (39-117); Anion Gap 12 (12-20); Aspartate Amino Transferase 21 U/L (5-37); Bilirubin Direct 0.3 mg/dL (0.0-0.5); Bilirubin Total 1.7 mg/dL (0.0-1.0); Blood Urea Nitrogen 16 mg/dL (9-16); Calcium 9.1 mg/dL (8.4-10.2); Carbon Dioxide 24 mmol/L (22-29); Chloride 109 mmol/L (96-108); Creatinine Clr Calc Pharmacy 70.5; Estimated Glomerular Filt Rate > 60; Glucose Random 127 mg/dL (60-115); Magnesium 2.2 mg/dL (1.6-2.6); Sodium 141 mmol/L (135-145); Total Protein 7.3 g/dL (6.5-8.0)
[2022-09-02 15:54] LABS: Appearance Urine Clear; Color Urine Yellow; Glucose Urine UA Negative (Negative); Leukocyte Esterase Urine Negative (Negative); Nitrite Urine Negative (Negative); PH 5.5 (5.0-9.0); Specific Gravity - Urine >= 1.030 (1.005-1.025); UMIC TRIGGER UACC YES; Urine Blood Small (1+) (Negative); Urine Ketones Negative (Negative); Urine Protein Trace mg/dL (Neg-Trace)
[2022-09-02 15:57] LABS: Troponin-I High Sensitivity 7.4 ng/L (<3.5-35.0)
[2022-09-02 16:04] LABS: Amphetamine Screen Urine Not Detected (Not Detect); Barbiturates, Urine Not Detected (Not Detect); Benzodiazepines Screen Urine Not Detected (Not Detect); Cannabinoid Screen Urine Not Detected (Not Detect); Cocaine Screen Urine Not Detected (Not Detect); Fentanyl, urine Not Detected (Not Detect); Opiate Screen Urine POSITIVE (Not Detect); Phencyclidine Screen Urine Not Detected (Not Detect)
[2022-09-02 16:07] LABS: Influenza A PCR NEGATIVE (Negative); Influenza B PCR NEGATIVE (Negative); Resp Syncy Virus RNA Qual PCR NEGATIVE (Negative); SARS COV2 PCR INHOUSE NEGATIVE (Negative)
[2022-09-02 16:09] LABS: Bacteria Urine None Seen (None Seen); Calcium Oxalate Crystals Urine Present; Hyaline Casts Urine 0-2 /LPF (0-2); RBC Urine 0-2 /HPF (0-2); Squamous Epithelial Cell Urine 0-2 /HPF (0-2); WBC Urine 0-5 /HPF (0-5)
[2022-09-02 16:27] LABS: Ammonia 34 umol/L (13-55)
[2022-09-02 21:50] VITALS: BP 151/74; PULSE 67; RESP 16; TEMP 36.5; O2SAT 95
[2022-09-03 00:47] VITALS: BP 167/80; PULSE 75; RESP 18; TEMP 36.4; O2SAT 95
--- NOTE | 2022-09-03 01:33 | PC.NURSE ---
pt returned from CT scan. resting on stretcher at this time.
--- NOTE | 2022-09-03 02:35 | PC.NURSE ---
pt noted to be sleeping on stretcher at this time. pt snoring rise and fall of chest noted
[2022-09-03 03:52] VITALS: BP 136/85; PULSE 66; RESP 17; TEMP 36.8; O2SAT 96
--- NOTE | 2022-09-03 05:39 | PC.NURSE ---
pt admits to this rn that pt has two dogs in mini van in parking lot outside. pt states dogs have been last checked on at 1900. this rn made dr salazar, charge entry specialist, and security aware of dogs. security found pt car with dogs inside. pt disposition awaiting update on plan of care from
[2022-09-03 06:09] VITALS: BP 154/97; PULSE 58; RESP 17; TEMP 36.7; O2SAT 97
--- NOTE | 2022-09-03 06:45 | PC.NURSE ---
pt ambulatory at time of discharge. skin pwd. pt provided with discharge packet. pt verbalizes understanding of discharge plan.
== END 2022-09-03 06:58 | disposition home or self-care (01) ==
PROVIDERS: Physician Assistant; Emergency Provider Emergency Medicine Emergency Medical Services; PCP Family Medicine
DX: R41.82 Altered mental status, unspecified (principal); I10 Essential (primary) hypertension; Z20.822 Contact with and (suspected) exposure to COVID-19; Z20.828 Contact with and (suspected) exposure to other viral communicable diseases; I73.9 Peripheral vascular disease, unspecified; Z87.891 Personal history of nicotine dependence; Z79.899 Other long term (current) drug therapy
CPT/HCPCS: 0241U; 36415; 70450; 71045; 80048; 80076; 80307; 81001; 82140; 83605; 83735; 84484; 85025; 85610; 87040; 93005; 99284

== ENCOUNTER 2022-09-05 18:04 | Emergency (ER) | payer MEDICARE, MEDICAID, SELFPAY ==
--- NOTE | 2022-09-05 18:26 | ED.GENADULT ---
HPI - General Adult General Chief complaint: Nausea/Vomiting/Diarrhea <OZZY Ignacio - Last Filed: 09/05/22 18:30> Stated complaint: Dehydrated, dizziness <OZZY Ignacio - Last Filed: 09/05/22 18:30> Time Seen by Provider: 09/05/22 18:56 <OZZY Ignacio - Last Filed: 09/05/22 18:30> Source: patient <Shawn Jovel MD - Last Filed: 09/06/22 00:38> Mode of arrival: ambulatory <Shawn Jovel MD - Last Filed: 09/06/22 00:38> History of Present Illness HPI narrative: Patient with history of hypertension homeless living in his car for approximately last for 5 years was seen here on 09/02 he has weakness and confusion comes here for nausea vomiting diarrhea since yesterday feeling weak and dizzy 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 No fever no neck pain no chest pain or shortness of breath denies any alcohol or drug use. Patient was asking for food on arrival. Patient denied any significant abdominal pain no vomiting or diarrhea today <Shawn Jovel MD - Last Filed: 09/06/22 00:38> Related Data Home medications: Previous Rx's Medication Instructions Recorded amlodipine 5 mg tablet 10 mg PO DAILY 30 days #60 tabs 03/02/22 doxycycline hyclate 100 mg tablet 100 mg PO Q12H 10 days #20 tabs 03/02/22 <OZZY Ignacio - Last Filed: 09/05/22 18:30> Allergies/adverse reactions: Allergies Allergy/AdvReac Type Severity Reaction Status Date / Time No Known Allergies Allergy Verified 04/28/22 12:17 <OZZY Ignacio - Last Filed: 09/05/22 18:30> Review of Systems Review of Systems: Yes all other systems are reviewed and are negative <Shawn Jovel MD - Last Filed: 09/06/22 00:38> [facility] Social History Social History: Social History Household Members: None Housing: Homeless Alcohol intake: never Patient Tobacco Use Status: Former Tobacco user Smoked in Last 30 Days: No Use of substances other than those prescribed or required for medical reasons: No Advance Directives: Yes Advance Directives on File: Yes Advance Directives Date on File: 03/03/22 service: No Current occupational status: retired <OZZY Ignacio - Last Filed: 09/05/22 18:30> Physical Exam ED Vital Signs: Vital Signs - 24 hr 09/05/22 18:29 09/05/22 23:13 09/05/22 23:20 Temperature 97.8 F 98.2 F Pulse Rate 60 55 57 Respiratory Rate 14 14 Blood Pressure 177/98 H 153/81 H 144/77 H Pulse Oximetry 97 94 Oxygen Delivery Method Room Air Room Air 09/05/22 23:15 09/05/22 23:16 09/05/22 23:59 Temperature 98.7 F Pulse Rate 57 66 62 Respiratory Rate 16 Blood Pressure 144/77 H 114/75 158/81 H Pulse Oximetry 93 Oxygen Delivery Method Room Air BMI result Body Mass Index 29.5 <OZZY Ignacio - Last Filed: 09/05/22 18:30> Vital Signs - 24 hr 09/05/22 18:29 09/05/22 23:13 09/05/22 23:20 Temperature 97.8 F 98.2 F Pulse Rate 60 55 57 Respiratory Rate 14 14 Blood Pressure 177/98 H 153/81 H 144/77 H Pulse Oximetry 97 94 Oxygen Delivery Method Room Air Room Air 09/05/22 23:15 09/05/22 23:16 09/05/22 23:59 Temperature 98.7 F Pulse Rate 57 66 62 Respiratory Rate 16 Blood Pressure 144/77 H 114/75 158/81 H Pulse Oximetry 93 Oxygen Delivery Method Room Air BMI result Body Mass Index 29.5 <Shawn Jovel MD - Last Filed: 09/06/22 00:38> Appearance: Alert. Oriented X3. No acute distress. Dishevelled Eyes: PERRLA, No Nystagmus ENT: Pharynx normal. Oral Mucosa moist Neck: Normal inspection. Neck supple. No neck pain CVS: Normal heart rate and rhythm. Pulses normal. Respiratory: No respiratory distress. Equal air entry bilateral, no wheezing/rales/rhonchi Abdomen: Soft and nontender. Bowel sounds are present, no mass palpable, no CVA tenderness Skin: Skin warm and dry. Normal skin color. Normal skin turgor. Extremities: No lower extremity edema. No calf tenderness Neuro: Oriented X 3. No motor deficit. No sensory deficit.No cerebellar signs , cranial nerves II-XII intact <Shawn Jovel MD - Last Filed: 09/06/22 00:38> Course Course Course Narrative: RME performed by Briana Rutherford PA-C. Patient is a 76 year old male presenting to the emergency department with feeling weak. Patient states that he is convinced it is because he eats dark chocolate and has been drinking a lot of [place] lately. Patient states that he can't keep anything down, when he eats or drinks, he starts puking a lot. Patient is homeless and living out of his car. Patient was seen here 3 days ago for similar episode, admitted, and discharged. Labs ordered. Patient placed back in the waiting room pending results and room availability. <OZZY gInacio - Last Filed: 09/05/22 18:30> Medications Administered Discontinued Medications Generic Name Dose Route Start Last Admin Trade Name Freq PRN Reason Stop Dose Admin Sodium Chloride 1,000 mls @ 999 mls/hr 09/05/22 23:23 09/06/22 00:06 Ns IV 09/06/22 00:23 999 mls/hr .Q1H1M ONE Administration Meclizine HCl 25 mg 09/05/22 21:27 09/05/22 21:36 Meclizine Hcl 25 Mg Tablet PO 09/05/22 21:28 25 mg ONCE ONE Administration Ondansetron HCl 4 mg 09/05/22 21:27 09/05/22 21:36 Ondansetron Odt 4 Mg Tab.Rapdis TRANSLINGU 09/05/22 21:28 4 mg ONCE ONE Administration <OZZY Ignacio - Last Filed: 09/05/22 18:30> Medications Administered Discontinued Medications Generic Name Dose Route Start Last Admin Trade Name Freq PRN Reason Stop Dose Admin Sodium Chloride 1,000 mls @ 999 mls/hr 09/05/22 23:23 09/06/22 00:06 Ns IV 09/06/22 00:23 999 mls/hr .Q1H1M ONE Administration Meclizine HCl 25 mg 09/05/22 21:27 09/05/22 21:36 Meclizine Hcl 25 Mg Tablet PO 09/05/22 21:28 25 mg ONCE ONE Administration Ondansetron HCl 4 mg 09/05/22 21:27 09/05/22 21:36 Ondansetron Odt 4 Mg Tab.Esther LUCIO 09/05/22 21:28 4 mg ONCE ONE Administration <Shawn Jovel MD - Last Filed: 09/06/22 00:38> Medical Decision Making Medical Decision Making [facility] Narrative: Patient with acute nausea vomiting diarrhea with poor oral intake with dizziness stable vitals stable lab will give him Zofran and meclizine also worried about blood in his system as he be more chocolates lately. No signs of infection patient orthostatic blood pressure drop on standing without any tachycardia patient did not feel any dizziness. Patient was given 1 L of normal saline had p.o. fluids feeling much better discharge patient home patient refused any help for placement <Shawn Jovel MD - Last Filed: 09/06/22 00:38> Lab Data [facility] Lab Attestation statement: I reviewed the patient's lab results. <Shawn Jovel MD - Last Filed: 09/06/22 00:38> Result Diagrams: 09/05/22 19:58 09/05/22 19:58 <OZZY Ignacio - Last Filed: 09/05/22 18:30> Labs: Lab Results 09/05/22 09/05/22 Range/Units 19:58 19:58 WBC 11.5 H (4.8-10.8) X10*3/uL RBC 5.42 (4.60-5.80) X10*6/uL Hgb 16.5 (14.0-18.0) g/dl Hct 47.9 (42.0-52.0) % MCV 88.4 (80.0-98.0) fL MCH 30.4 (27.0-33.0) pg MCHC 34.4 (31.0-36.0) g/dl RDW 12.5 (11.0-16.0) % Plt Count 262 (160-400) X10*3/uL MPV 9.4 (9.4-12.4) fL Immature Gran % (Auto) 0.3 (0.0-0.4) % Neut % (Auto) 76.5 H (45-73) % Lymph % (Auto) 17.1 L (20-40) % Kershaw % (Auto) 5.1 (2-11) % Eos % (Auto) 0.4 (0-4) % Baso % (Auto) 0.6 (0-2) % Lymph # (Auto) 2.0 (1.2-4.9) X10*3/uL [place]haw # (Auto) 0.6 (0.1-1.2) X10*3/uL Eos # (Auto) 0.1 (0.0-0.4) X10*3/uL Baso # (Auto) 0.1 (0.0-0.2) X10*3/uL Abs Immat Gran (auto) 0.04 H (0.00-0.03) X10*3/uL Absolute Neuts (auto) 8.8 H (2.0-8.3) x10*3/uL Absolute Nucleated RBC 0.000 (0.0-0.012) X10*3/uL Nucleated RBC % (auto) 0.0 (0.0-0.2) /100WBC Sodium 140 (135-145) mmol/L Potassium 3.8 (3.3-5.1) mmol/L Chloride 102 (96-108) mmol/L Carbon Dioxide 27 (22-29) mmol/L Anion Gap 15 (12-20) BUN 15 (9-16) mg/dL Creatinine 0.85 (0.5-1.4) mg/dL Estim Creat Clear Calc 83.5 Estimated GFR > 60 Random Glucose 93 (60-115) mg/dL Calcium 9.5 (8.4-10.2) mg/dL Magnesium 2.3 (1.6-2.6) mg/dL Total Bilirubin 4.3 H (0.0-1.0) mg/dL AST 24 (5-37) U/L ALT 15 (0-40) U/L Alkaline Phosphatase 69 (39-117) U/L Total Protein 7.8 (6.5-8.0) g/dL Albumin 4.6 (3.5-5.0) g/dL <OZZY Ignacio - Last Filed: 09/05/22 18:30> Lab Results 09/05/22 09/05/22 Range/Units 19:58 19:58 WBC 11.5 H (4.8-10.8) X10*3/uL RBC 5.42 (4.60-5.80) X10*6/uL Hgb 16.5 (14.0-18.0) g/dl Hct 47.9 (42.0-52.0) % MCV 88.4 (80.0-98.0) fL MCH 30.4 (27.0-33.0) pg MCHC 34.4 (31.0-36.0) g/dl RDW 12.5 (11.0-16.0) % Plt Count 262 (160-400) X10*3/uL MPV 9.4 (9.4-12.4) fL Immature Gran % (Auto) 0.3 (0.0-0.4) % Neut % (Auto) 76.5 H (45-73) % Lymph % (Auto) 17.1 L (20-40) % [place]haw % (Auto) 5.1 (2-11) % Eos % (Auto) 0.4 (0-4) % Baso % (Auto) 0.6 (0-2) % Lymph # (Auto) 2.0 (1.2-4.9) X10*3/uL [place]haw # (Auto) 0.6 (0.1-1.2) X10*3/uL Eos # (Auto) 0.1 (0.0-0.4) X10*3/uL Baso # (Auto) 0.1 (0.0-0.2) X10*3/uL Abs Immat Gran (auto) 0.04 H (0.00-0.03) X10*3/uL Absolute Neuts (auto) 8.8 H (2.0-8.3) x10*3/uL Absolute Nucleated RBC 0.000 (0.0-0.012) X10*3/uL Nucleated RBC % (auto) 0.0 (0.0-0.2) /100WBC Sodium 140 (135-145) mmol/L Potassium 3.8 (3.3-5.1) mmol/L Chloride 102 (96-108) mmol/L Carbon Dioxide 27 (22-29) mmol/L Anion Gap 15 (12-20) BUN 15 (9-16) mg/dL Creatinine 0.85 (0.5-1.4) mg/dL Estim Creat Clear Calc 83.5 Estimated GFR > 60 Random Glucose 93 (60-115) mg/dL Calcium 9.5 (8.4-10.2) mg/dL Magnesium 2.3 (1.6-2.6) mg/dL Total Bilirubin 4.3 H (0.0-1.0) mg/dL AST 24 (5-37) U/L ALT 15 (0-40) U/L Alkaline Phosphatase 69 (39-117) U/L Total Protein 7.8 (6.5-8.0) g/dL Albumin 4.6 (3.5-5.0) g/dL <Shawn Jovel MD - Last Filed: 09/06/22 00:38> Discharge Plan Discharge Clinical Impression: Gastroenteritis <OZZY Ignacio - Last Filed: 09/05/22 18:30> Patient Disposition: Home, Self-Care <OZZY Ignacio - Last Filed: 09/05/22 18:30> Instructions: Acute Nausea and Vomiting (ED) <OZZY Ignacio - Last Filed: 09/05/22 18:30> Prescriptions: No Action doxycycline hyclate 100 mg Tablet 100 mg PO Q12H 10 Days Qty: 20 0RF amlodipine 5 mg Tablet 10 mg PO DAILY 30 Days Qty: 60 0RF Protocol: Hold for SBP< HOLD for SBP < : 90 <OZZY Ignacio - Last Filed: 09/05/22 18:30> Referrals: Physician,Unknown J [Physician] - 1 Week <OZZY Ignacio - Last Filed: 09/05/22 18:30>
[2022-09-05 18:29] VITALS: BP 177/98; PULSE 60; RESP 14; TEMP 36.6; O2SAT 97; BMI 29.5
[2022-09-05 20:03] LABS: MANUAL DIFF FLAG NO
[2022-09-05 20:04] LABS: Basophils Absolute Auto 0.1 X10*3/uL (0.0-0.2); Basophils Percent Auto 0.6 % (0-2); Eosinophils Absolute Auto 0.1 X10*3/uL (0.0-0.4); Eosinophils Percent Auto 0.4 % (0-4); Hematocrit 47.9 % (42.0-52.0); Hemoglobin 16.5 g/dl (14.0-18.0); Imm Gran Abs Auto 0.04 X10*3/uL (0.00-0.03); Imm Gran Pct Auto 0.3 % (0.0-0.4); Lymphocytes Percent Auto 17.1 % (20-40); Mean Corpuscular HGB Conc 34.4 g/dl (31.0-36.0); Mean Corpuscular Hemoglobin 30.4 pg (27.0-33.0); Mean Corpuscular Volume 88.4 fL (80.0-98.0); Mean Platelet Volume 9.4 fL (9.4-12.4); Monocytes Absolute Auto 0.6 X10*3/uL (0.1-1.2); Monocytes Percent Auto 5.1 % (2-11); Neutrophils Absolute Auto 8.8 x10*3/uL (2.0-8.3); Neutrophils Percent Auto 76.5 % (45-73); Platelet Count 262 X10*3/uL (160-400); Red Blood Count 5.42 X10*6/uL (4.60-5.80); Red Cell Distribution Width 12.5 % (11.0-16.0); White Blood Count 11.5 X10*3/uL (4.8-10.8)
[2022-09-05 20:17] LABS: Alanine Aminotransferase 15 U/L (0-40); Albumin Level 4.6 g/dL (3.5-5.0); Alkaline Phosphatase 69 U/L (39-117); Anion Gap 15 (12-20); Aspartate Amino Transferase 24 U/L (5-37); Bilirubin Total 4.3 mg/dL (0.0-1.0); Blood Urea Nitrogen 15 mg/dL (9-16); Calcium 9.5 mg/dL (8.4-10.2); Carbon Dioxide 27 mmol/L (22-29); Chloride 102 mmol/L (96-108); Creatinine Clr Calc Pharmacy 83.5; Estimated Glomerular Filt Rate > 60; Glucose Random 93 mg/dL (60-115); Magnesium 2.3 mg/dL (1.6-2.6); Potassium 3.8 mmol/L (3.3-5.1); Sodium 140 mmol/L (135-145); Total Protein 7.8 g/dL (6.5-8.0)
[2022-09-05] MEDS: Ondansetron ODT 4 MG TAB.RAPDIS TRANSLINGU (21:36)
[2022-09-05] MEDS: Meclizine HCl 25 MG TABLET PO (21:36)
[2022-09-05 23:13] VITALS: BP 153/81; PULSE 55
[2022-09-05 23:15] VITALS: BP 144/77; PULSE 57
[2022-09-05 23:16] VITALS: BP 114/75; PULSE 66
[2022-09-05 23:20] VITALS: BP 144/77; PULSE 57; RESP 14; TEMP 36.8; O2SAT 94
[2022-09-05 23:59] VITALS: BP 158/81; PULSE 62; RESP 16; TEMP 37.1; O2SAT 93
[2022-09-06] MEDS: 0.9 % Sodium Chloride 1,000 ML 999 ML IV (00:06)
[2022-09-06 04:00] VITALS: BP 148/76; PULSE 56; RESP 16; O2SAT 93
[2022-09-06 06:00] VITALS: BP 127/74; PULSE 56; RESP 16; O2SAT 95
[2022-09-08 16:24] LABS: Venous Lead 2.5 mcg/dL (<3.5)
[2022-09-10 19:13] LABS: Arsenic, Blood <3 mcg/L (<23); Lead, Blood 2.9 mcg/dL (<3.5); Mercury, Blood <4 mcg/L (<=10)
== END 2022-09-06 06:55 | disposition home or self-care (01) ==
PROVIDERS: Physician Assistant Medical; Emergency Provider Internal Medicine; PCP Family Medicine
DX: K52.9 Noninfective gastroenteritis and colitis, unspecified (principal); R11.2 Nausea with vomiting, unspecified; E86.0 Dehydration; Z79.899 Other long term (current) drug therapy
CPT/HCPCS: 36415; 80053; 82175; 83655; 83735; 83825; 85025; 99283; 99285

== ENCOUNTER 2023-03-21 09:18 | Day surgery (SDC) | payer MEDICARE, MEDICAID, SELFPAY ==
[2023-03-17 14:22] VITALS: BMI 31.7
--- NOTE | 2023-03-18 07:57 | MHC.SHP ---
Pre-Procedural Eval Section A Date of Service: 03/18/23 The patient is an INPATIENT: No Changes since office visit: No Cold of Flu in the past 2 weeks, No New Medical Problems, No Changes in Medication and No Patient answered all questions The History & Physical has been completed within 30 days and I have reviewed it.: Yes Section B Chief Complaint: Age-related nuclear cataract, left eye Allergies: Allergies Allergy/AdvReac Type Severity Reaction Status Date / Time No Known Allergies Allergy Verified 04/28/22 12:17 Plan Diagnosis/Plan: Unchanged I have reviewed the history and physical and performed a pertinent physical examination on my patient. No changes have occurred unless specified. Time Spent With Patient Time: Total time managing care of this patient today ____ minutes.
--- NOTE | 2023-03-18 12:09 | HO.ANESPROP2 ---
Documented by User: Stephanie Segovia NP 03/18/23 12:10 HPI - Anesthesia Eval Consult details Narrative: 77yo M for Cataract Extraction IOL Insertion PCP cleared No previous cataract on record [facility] Past Medical History Medical History FHx: cholecystectomy HTN (hypertension) Surgical History Surgical History Hx of tonsillectomy Social History Social History Household Members: None Housing: Homeless Alcohol intake: never Patient Tobacco Use Status: Former Tobacco user Use of substances other than those prescribed or required for medical reasons: No Are you DNR?: No Advance Directives: No Advance Directives Information Provided: Yes Advance Directives Date on File: 03/03/22 service: No Current occupational status: retired Meds Allergies Allergy/AdvReac Type Severity Reaction Status Date / Time acetaminophen [From Percocet] AdvReac Nausea and Verified 03/21/23 10:43 Vomiting oxycodone [From Percocet] AdvReac Nausea and Verified 03/21/23 10:43 Vomiting Exam Exam Date and Time: March 18, 2023 1209 Height,Weight and Vital Signs: Height 5 ft 9.5 in Weight 98.656 kg Assessment and Plan Assessment Anesthesia Assessment: Chart Reviewed Documented by User: Sylvester Rouse MD 03/21/23 11:13 [facility] Past Medical History Medical History FHx: cholecystectomy HTN (hypertension) Family History Family history of problems with anesthesia: No Surgical History Surgical History Hx of tonsillectomy History of Problems with Anesthesia: No Social History Social History Household Members: None Housing: Homeless Alcohol intake: never Patient Tobacco Use Status: Former Tobacco user Use of substances other than those prescribed or required for medical reasons: No Are you DNR?: No Advance Directives: No Advance Directives Information Provided: Yes Advance Directives Date on File: 03/03/22 service: No Current occupational status: retired Meds Allergies Allergy/AdvReac Type Severity Reaction Status Date / Time acetaminophen [From Percocet] AdvReac Nausea and Verified 03/21/23 10:43 Vomiting oxycodone [From Percocet] AdvReac Nausea and Verified 03/21/23 10:43 Vomiting Exam Airway Mallampati Class: II TM Dist: >3cm Neck ROM: Full Loose/Missing/Broken Teeth: Yes (extremely poor dentition, multiple missing globally) Heart: [id number] Lungs: cta b/l Assessment and Plan Assessment Anesthesia Assessment: Anesthesia Plan Discussed Final Anesthetic Review Family History of Problems with Anesthesia: No History of Problems with Anesthesia: No NPO: Yes ASA Class: III Final Preanesthetic Review: No Changes in Pt Med Stat, Meds/Allgs Chart Reviewed, Consent Obtained/Reviewed and Anes Risks/Benef Reviewed Patient Risk: Intermediate Procedure Risk: Intermediate Assessment/Block/Sedation in SS: Assess/Block/Sedation-SS Anesthetic Plan Anesthetic Plan: MAC: and Agree w/ Assess. and Plan Disposition: Standard PACU
[2023-03-21 11:04] VITALS: BP 156/82; PULSE 60; RESP 16; TEMP 37.6; O2SAT 96
--- NOTE | 2023-03-21 11:09 | ECG_ITS ---
Test Reason : arrhythmia Blood Pressure : / mmHG Vent. Rate : 060 BPM Atrial Rate : 060 BPM P-R Int : 222 ms QRS Dur : 096 ms QT Int : 426 ms P-R-T Axes : 008 -26 012 degrees QTc Int : 426 ms Sinus rhythm with marked sinus arrhythmia with 1st degree A-V block Moderate voltage criteria for LVH, may be normal variant ( R in aVL , Metz product ) Borderline ECG When compared with ECG of 02-SEP-2022 15:04, Premature supraventricular complexes are no longer Present Referred By: Sylvester Rouse Electronically Signed By:WENDY IBARRA
--- NOTE | 2023-03-21 11:25 | PC.NURSE ---
PATIENT STATES HE DROVE HIMSELF HERE AND LIVES IN HIS CAR WITH HIS TWO DOGS. PATIENT WAS EXPLAINED BY MD PATEL THAT HE CAN HAVE THE PROCEDURE WITH LOCAL ANESTHETIC ONLY AND PATIENT AGREED TO DOING SO AND IS AWARE OF THE PLAN OF CARE. HE WAS EXPLAINED THAT HE CANNOT DRIVE HIS VEHICLE AFTER HAVING ANESTHESIA. MD GOLDBERG AWARE WELL THE PLAN OF CARE. PATIENT AGREEING TO THE PLAN OF CARE..
[2023-03-21] MEDS: Tetracaine HCl/PF 0.5% Oph Sol 4 ML DROPS 1 DROP EYE-LEFT (11:31)
[2023-03-21] MEDS: Cyclopentolate 1 % Ophth Sol 2 ML DRPBTL 1 DROP EYE-LEFT ×3 (11:31→11:37)
[2023-03-21] MEDS: Tropicamide 1 % Ophth Sol 3 ML BTL 1 DROP EYE-LEFT ×3 (11:32→11:38)
[2023-03-21] MEDS: Ketorolac Tromethamine 0.5% Op 5 ML DROPS 1 DROP EYE-LEFT ×3 (11:33→11:39)
[2023-03-21] MEDS: Phenylephrine HCL 2.5% Oph SoL 2 ML BOTTLE 1 DROP EYE-LEFT ×3 (11:33→11:39)
--- NOTE | 2023-03-21 12:02 | HO.PNOPHT ---
Ophthalmology Procedure Procedure Date of Service: 03/21/23 Ophthalmology Viscoelastic: Healestelle Chatterjeet Dual Pack Pro Ophthalmology Lenses: TECROSAURA [id number] (17) Procedure Notes: PREOPERATIVE DIAGNOSIS: Decreased visual acuity left eye secondary to cataract POSTOPERATIVE DIAGNOSIS: Same PROCEDURE: Left cataract extraction with intraocular lens insertion SURGEON: Rocky Carr M.D. ANESTHESIA: Topical/MAC ESTIMATED BLOOD LOSS: None COMPLICATIONS: None After obtaining informed consent, the patient was brought to the operation room suite and placed in the supine position. After adequate sedation per anesthesia, topical drops of Tetracaine were given to the left eye. The eye was then prepped and draped in the usual sterile fashion. The operating room microscope was then positioned over the operative eye and a lid speculum placed. A paracentesis was created. Viscoelastic was then instilled into the anterior chamber. A three plane incision was then created temporally, utilizing a 2.85 mm keratome. Capsulotomy forceps were then utilized to create a circular tear capsulotomy. Hydrodissection and hydrodelineation were carried out until adequate mobilization of the nucleus occurred. Phacoemulsification was then utilized to remove the dense central nucleus followed by removal of the cortical material utilizing the automated aspiration irrigation unit. Viscoat elastic was instilled into the posterior capsular bag followed by placement of a posterior chamber intraocular lens without difficulty. The residual Viscoat elastic was then removed utilizing the automated IA machine. The wound was check and found to be watertight. The patient tolerated the procedure well and the lid speculum was removed. Intracameral injection of Vigamox 0.1 mL followed by a subtenon injection of Kenalog-40 0.2 mL were administered. The patient will be seen in the a.m.
[2023-03-21 12:40] VITALS: BP 153/79; PULSE 55; RESP 16; TEMP 36.8; O2SAT 95
== END 2023-03-21 12:56 | disposition home or self-care (01) ==
PROVIDERS: PCP Family Medicine; Visit Provider Ophthalmology
PROC: (CPT 66985; principal; 2023-03-21 12:10)
DX: H25.12 Age-related nuclear cataract, left eye (principal); H54.7 Unspecified visual loss; I10 Essential (primary) hypertension; Z87.891 Personal history of nicotine dependence
CPT/HCPCS: 66984; 93005; J3301; V2632